=== PATIENT | female | born 1965 | race Caucasian/White ===

== ENCOUNTER 2023-04-12 08:34 | Outpatient (RCR) | payer BC, SELFPAY | END 2023-11-11 09:00 | disposition home or self-care (01) | LOC: PT 08:34 | PROVIDERS: PCP Internal Medicine; Visit Provider Internal Medicine | DX: M51.36 Other intervertebral disc degeneration, lumbar region (principal) | CPT/HCPCS: 20561; 97140 ==

== ENCOUNTER 2023-11-12 09:46 | Outpatient (RCR) | payer BC, SELFPAY | END 2024-11-11 15:01 | disposition home or self-care (01) | LOC: PT 09:46 | PROVIDERS: PCP Internal Medicine; Visit Provider Internal Medicine | DX: M51.360 Other intervertebral disc degeneration, lumbar region with discogenic back pain only (principal); M25.552 Pain in left hip | CPT/HCPCS: 20561 ==

== ENCOUNTER 2024-04-24 19:30 | Emergency (ER) | payer BC, SELFPAY ==
--- OUTSIDE RECORDS SUMMARY | 2024-04-24 19:39 | XMS_ITS | CCD ---
Author Organization [facility] Inform ion Partnership [facility] Care Team Providers Care Editor House Organ Name Role Phone Shanelle Hitchcock Unavailable Addy Meyers Unavailable Tony Mittal Unavailable DR ELSA BOOKER Admitting Unavailable KATELIN, DR HUNTER Attending Unavailable KATELIN, DR HUNTER Admitting Unavailable KATELIN, DR HUNTER Attending Unavailable Elsa Booker DO Primary Care Provider TERI Read Attending Provider [phone] HEYDI IBRAHIM Attending Unavailable ELSA BOOKER Attending Unavailable ELSA BOOKER Referring Unavailable GIOVANNI MENDOZA Referring Unava ilable Shanelle Read Admitting Unavailable Shanelle Read Attending Unavailable Self, Referral Attending Unavailable Elsa Booker Primary Care Unavailable Self, Referral Admitting Unavailable Allergies Allergy Classification Reported Allergen(s) Allergy Type Date of Onset Reaction(s) Facility (5 sources) Ibuprofen Drug Allergy 4 Unknown, Unknown Reaction [facility] (8 sources) Penicillin V Drug Allergy 4 Unknown, Unknown Reaction [facility] (4 sources) Penicillins Propensity to adverse reactions 8 [facility] (1 source) Ibuprofen Drug Allergy 4 [facility] (1 source) Penicillin Drug Allergy 4 [facility] (1 source) Penicillins Drug allergy (disorder) 4 [facility] Medications Current Medications Medication Drug Class(es) Dates Sig (Normalized) Sig (Original) amitriptyline hydrochloride 25 mg oral tablet (3 sources) Tricyclic Antidepressant Start: 09-07-2020 take 25 mg by mouth at bedtime Amitriptyline Active 25 MG PO Bedtime June 23, 2021 12:00am ascorbic acid 1000 mg oral tablet (2 sources) Vitamin C Start: 11-20-2017 take 1 tablet by mouth once daily Ascorbic Acid (Vitamin C) (Vitamin C) 1,000 mg Tablet Active 1000 MG PO Daily November 20, 2017 1:00am cholecalciferol 0.125 mg oral tablet (2 sources) Vitamin D Start: 11-20-2017 take 1 tablet by mouth once daily Cholecalciferol (Vitamin D3) (Vitamin D3) 5,000 unit Tablet Active 5000 UNIT PO Daily November 20, 2017 1:00am cyclobenzaprine hydrochloride 10 mg oral tablet (5 sources) Muscle Relaxant Start: 06-23-2021 take 10 mg by mouth three times daily Cyclobenzaprine Active 10 MG PO Three times daily June 23, 2021 12:00am take 1 tablet by shira th every eight hours as needed Cyclobenzaprine HCl 10 MG 1 tablet Orall y every 8 hrs prn Active dicyclomine hydrochloride 20 mg oral tablet (5 sources) Anticholinergic Start: 06-23-2021 take 20 mg by mouth twice daily Dicyclomine Active 20 MG PO Twice daily June 23, 2021 12:00am Start: 09-07-2020 take 1 tablet by shira th four times daily as needed Dicyclomine HCl 20 MG 1 tablet Orally qid prn for 30 day(s) Aug, Active estrogens, conjugated (care home) 0.625 mg/ml vaginal cream (3 sources) Estrogen Premarin 0.625 MG/GM as directed Vaginal Active ferrous sulfate 325 mg oral tablet (5 sources) Start: 8 take 1 tablet by mouth once daily Ferrous Sulfate (Iron) 325 mg (65 mg iron) Tablet Active 325 MG PO Daily November 20, 2017 1:00am fluticasone (3 sources) Corticosteroid Flonase prn Acti ve gabapentin 300 mg oral capsule (7 sources) Anti-epileptic Agent Start: 8 End: 8 take 300 mg by mouth twice daily Gabapentin Active 300 MG PO Twice daily June 06, 2018 12:00am Gabapentin 300 M G 1 capsule Orally 2-3 times a day Active lidocaine 0.05 mg/mg medicated patch (2 sources) Antiarrhythmic, Amide Local Anesthetic Start: 10-02-2022 Lidoderm 5 % 1-2 patches remove after 12 hours Externally Once a day for 10 days Sep, Active Multi Vitamin/Minerals - (3 sources) Multi Vitamin/Minerals - as directed Orally Active Multivitamin preparation (2 sources) Start: 11-20-2017 take 1 tablet by mouth once daily Multivitamin Active 1 TAB PO Daily November 20, 2017 1:00am POLYETHYLENE GLYCOL 3350 (3 sources) Osmotic Laxative MiraLax Active predniSONE 10 mg oral tablet (3 sources) Start: 05-23-2022 prednisone 10 mg 5 tablets for 2 days, 4 tablets x2 days, then 3 x2 days, 2 x2 days, 1 x2 days Orally as directed for 10 days May, Active 0.25 mg, 0.5 mg dose 1.5 ml semaglutide 1.34 mg/ml pen injector (1 source) Start: 05-27-2021 Ozempic (0.25 or 0.5 MG/DOSE) 2 MG/1.5ML 0.25 mg for one month and then increase to 0.5 mg dose in the form of Wegovy Subcutaneous weekly for 30 days May, Active Tylenol Arthritis Pain (3 sources) Tylenol Arthriti s Pain Active valACYclovir 1000 mg oral tablet (3 sources) Herpesvirus Nucleoside Analog DNA Polymerase Inhibitor, Herpes Simplex Virus Nucleoside Analog DNA Polymerase Inhibitor, Herpes Zoster Virus Nucleoside Analog DNA Polymerase Inhibitor take 2 tablets by mouth every twelve hours as needed Valtrex 1 GM 2 tablets Orally q 12 hours/prn Active vitamin b12 1 mg oral tablet (5 sources) Vitamin B12 Start: 11-20-2017 take 1 tablet by mouth once daily Cyanocobalamin (Vitamin B-12) (Vitamin B-12) 1,000 mcg Tablet Active 1000 MCG PO Daily November 20, 2017 1:00am Vitamin B 12 100 0 mcg 1 tab qd Active Vitamin C 1000 MG (3 sources) take 1 tablet by shira th once daily Vitamin C 1000 MG 1 tablet Orally Once a day Active Vitamin D (3 sources) Vitamin D Active Zinc (1 source) take 1 tablet by shira th once daily Zinc 50 MG 1 tablet Orally Once a day Active zinc gluconate 50 mg oral tablet (2 sources) take 1 tablet by shira th every twenty-four hours Zinc 50 MG 1 tablet Orally Once a day Active Completed/Discontinued Medications Medication Drug Class(es) Dates Sig (Normalized) Sig (Original) acetaminophen 325 mg / oxyCODONE hydrochloride 5 mg oral tablet (2 sources) Opioid Agonist Start: 11-20-2017 End: 06-06-2018 take 1-2 tablets by mouth every six hours as needed for pain Oxycodone-Acetamino phen (Percocet) 5-325 mg tablet Discontinued 1 - 2 TAB PO Q6H November 20, 2017 1:00am June 06, 2018 4:00am May take 1-2 tabs q 6 hours prn pain Toradol 30 mg/ml (5 sources) Start: 10-02-2022 Toradol 30 mg/ml Sep, 30 mg Start: 05-23-2022 Toradol 30 mg/ ml May, 60 mg triamcinolone acetonide 40 mg/ml injectable suspension (5 sources) Corticosteroid Start: 10-02-2022 Kenalog-40 Sep, 40 mg Start: 05-23-2022 Kenalog-40 May, 60 mg Problems Active Problems Problem Classification Problem Date Documented Da te Episodic/Chronic Abdominal hernia (1 source) Hernia of anterior abdominal wall; Translations: [Ventral hernia without obstruction or gangrene] 07-27-2021 Episodic Abdominal pain (4 sources) Functional abdominal pain syndrome; Translations: [Unspecified abdominal pain] Episodic Diabetes mellitus without complication (3 sources) Impaired fasting glycemia; Translations: [Impaired fasting glucose] Episodic Disorders of lipid metabolism (3 sources) Mixed hyperlipidemia; Translations: [Mixed hyperlipidemia] Chronic Diverticulosis and diverticulitis (6 sources) Diverticulitis; Translations: [Diverticulitis of intestine, part unspecified, without perforation or abscess without bleeding] Chronic Genitourinary symptoms and ill-defined conditions (3 sources) Dysuria; Translations: [Dysuria] Onset: 02-26-2024 02-26-2024 Episodic Mood disorders (3 sources) Major depression, single episode; Translations: [Major depressive disorder, single episode, unspecified] Chronic Osteoarthritis (3 sources) Osteoarthritis of knee; Translations: [Osteoarthritis of knee, unspecified] Chronic Other gastrointestinal disorders (6 sources) History of bariatric surgical procedure; Translations: [Bariatric surgery status] Episodic Other nutritional; endocrine; and metabolic disorders (6 sources) Body mass index 40+ - severely obese; Translations: [Body mass index (BMI) 50.0-59.9, adult] Chronic Other nutritional; endocrine; and metabolic disorders (3 sources) Metabolic syndrome X; Translations: [Metabolic syndrome] Chronic Other nutritional; endocrine; and metabolic disorders (3 sources) Severe obesity; Translations: [Morbid (severe) obesity due to excess calories] Chronic Spondylosis; intervertebral disc disorders; other back problems (4 sources) Other intervertebral disc degeneration, lumbar region; Translations: [OTH IV DISC DEGEN LUMBAR REGION] Onset: 05-30-2022 Chronic Spondylosis; intervertebral disc disorders; other back problems (4 sources) Lumbago with sciatica, left side; Translations: [Sciatica] Onset: 05-23-2022 Resolved: 05-23-2022 Episodic Unclassified (1 source) Encounter for screening mammogram for malignant neoplasm of breast; Translations: [Encounter for screening mammogram for malignant neoplasm of breast] Onset: 05-22-2023 Past or Other Problems Problem Classification Problem Date Documented Da te Episodic/Chronic Other non-traumatic joint disorders (1 source) Pain in left hip; Translations: [PAIN IN LEFT HIP] Onset: 06-13-2022 Episodic Results Test Name Value Interpretation Reference Range Facility Urine Cultureon 02-26-2024 Bacteria identified Cx Nom (U) <9,000 colonies/ml mixed bacterial skin contaminants 2 Days PERFORMED BY: [place] [address] PATHOLOGIST SURVEILLANCE SYSTEMS ENGINEER CORIE BIRCH M.D. Normal [facility] Comment on above: Performed By: #### CUU #### [address] XR CHEST 2 VIEWSon 3 XR CHEST 2 VIEWS EXAMINATION: XR CHES T 2 VIEWS HISTORY: Iriditis TECHNIQUE: Frontal and lateral views of the chest. COMPARISON: None available FINDINGS: Cardiomediastinal silhouette is within normal limits. No pneumothorax, pleural effusion, or consolidation. No acute osseous abnormality. IMPRESSION: No radiographic evidence of acute intrathoracic process. ELECTRONICALLY SIGNED BY: Elsa Melara, DO Normal Not Available MM screening mammo BI w/CADo n 05-22-2023 MM screening mammo BI w/CAD [facility] [place] [address] [place] [address] Mammography Report Signed Patient: Rudolph Teague MR#: [id number] 0 : 1965 Acct:[id number] Age/Sex: 57 / F ADM Date: 05/22/23 Loc: [place] Room: Type: [facility] Attending Dr: Referral Self Copies to: Elsa Booker DO SELF,REFERRAL Ordering Provider: SELF,REFERRAL Date of Service: 05/22/23 MM/MM screening mammo BI w/CAD: SCREENING CLINICAL DATA: Screening for malignancy. BILATERAL SCREENING MAMMOGRAMS - FULL FIELD DIGITAL WITH TOMOSYNTHESIS AND CAD Tomosynthesis craniocaudal and mediolateral oblique views of both breasts were obtained using low- dose digital technique. Comparison is made to prior studies from November 10, 2017 through May 13, 2022. This examination was reviewed with the aid of CAD. The breast parenchyma has been largely replaced by fat. A few benign calcifications are seen. There are no developing masses, typically malignant calcifications or architectural distortion. There has been no significant interval change. MM/MM screening mammo BI w/CAD IMPRESSION: NO MAMMOGRAPHIC EVIDENCE OF MALIGNANCY. ROUTINE FOLLOW-UP IS RECOMMENDED IN ONE YEAR. RESULT CODE: 2 Benign Findings(s) DENSITY CODE: 1 (<25% glandular) FOLLOW UP: 1YR The false-negative rate of mammography is approximately 10-percent. Management of a palpable abnormality must be based on clinical grounds. Patient was entered into a reminder system with a target due date for the next mammogram. Impression dictated by: Shira Reed M.D.05/22/2023 4:34 PM Dictation Location: [facility] Transcribed By: [facility] 05/22/23 1634 Dictated By: Shira Reed MD 05/22/23 163 Signed By: 05/22/23 1634 Normal [facility] CT Abdomen/Pelvis w/ Contras ton 08-31-2022 CT Abdomen/Pelvis w/ Contrast HISTORY: Left lower quadrant pain intermittently for 2 weeks. History of diverticulosis. COMPARISON: CT abdomen and pelvis 07/01/2020 TECHNIQUE: Multiple axial images were obtained of the abdomen and pelvis with contrast. Multiplanar reformats were acquired at the CT console. Oral contrast was also given. Delayed images were obtained. All CT scans at this facility use dose modulation, iterative reconstruction, and/or weight based dosing when appropriate to reduce radiation dose to as low as reasonably achievable. FINDINGS: Lung bases are clear. The liver is enlarged measuring approximately 24 cm in craniocaudal length. Postsurgical changes of cholecystectomy. Postsurgical changes of the stomach. The spleen, pancreas, and adrenal glands are within normal limits. All The kidneys enhance uniformly. Mild chronic bilateral perinephric stranding. No urinary tract calculi or hydronephrosis.No evidence of renal mass. Urinary bladder is well-distended. The uterus is present. No retroperitoneal or mesenteric lymphadenopathy. Abdominal aorta is non-aneurysmal. No small bowel obstruction. Scattered colonic diverticula are identified. No overt colonic mass or pericolonic inflammation. The appendix is within normal limits. No free air or free fluid. No acute osseous abnormality. Degenerative changes of the spine. IMPRESSION: No acute abdominopelvic process. Chronic diverticulosis without diverticulitis. Hepatomegaly. Report reported and signed by Elsa Melara on 08/31/2022 1342 Normal [facility] XR Spine Lumbar 4+ Views*on 03-03-2022 XR Spine Lumbar 4+ Views* HISTORY: Back pain COMPARISON: CT abdomen and pelvis 07/01/2020 TECHNIQUE: AP, lateral, bilateral oblique views of the lumbar spine and AP and lateral coned-down views of the lumbosacral junction FINDINGS: Lumbar vertebral body heights are maintained. Moderate intervertebral disc height loss at L5-S1. Mild examine plate changes with spurring at L5-S1. Facet arthropathy of the lower lumbar spine. No acute fracture or malalignment. Sacroiliac joints appear normal. IMPRESSION: No acute osseous abnormality. Degenerative changes of the lower lumbar spine. Report reported and signed by Elsa Melara on 03/03/2022 1143 Normal [facility] Specialist CNTHERAPYon 08-06-2021 CNTHERAPY OT/PT/Speech Visit ( PTELYR) RUDOLPH TEAGUE ([id number]) 1965 F Date Time Provider Department 08/06/21 11:00 AM RENAN GATES Date Time Provider Department Center 08/06/2021 11:00 AM [id number] Reason for Visit: PT Eval [747] Patient Education [91] Primary Visit Diagnosis:Generalized abdominal pain [R10.84] Other Visit Diagnosis:Post-op pain [G89.18] Allergies As of Date: 08/06/2021 Noted Allergy Reaction PENICILLINS 10/13/2008 4 - Hives Date Reviewed: 07/28/2021 Reviewed by: Ana Cristina Cam Ma - Fully Assessed Prescriptions as of 08/08/2021 - amitriptyline (ELAVIL) 25 mg tablet - dicyclomine (BENTYL) 20 mg tablet - gabapentin (NEURONTIN) 300 mg capsule - traMADol (ULTRAM) 50 mg tablet - cyclobenzaprine (FLEXERIL) 10 mg tablet Progress Notes: Renan Gates PT 08/08/2021 8:32 AM Addendum Episode Visit Count: 1 Therapist That Will Oversee The Plan Of Care: Renan Gates Start of Care Date: 08/06/21 Onset Date: 07/27/14 Plan of Care Certification Date: 08/06/21 Patient Identified by Name and Date of : Yes [facility] PHYSICAL THERAPY EVALUATION PLAN OF CARE: Assessment: Rudolph Teague presents with the chief complaint of chronic abdominal pain. She has pain and TTP along suprapubic ncision and along abdominal incision along linea alba. She presents with impairments of core weakness, compensated transfers, pain and lack of home exercise program. She may benefit from skilled therapy services to improve her core strength and to increase her scar mobility, all with the goal of decreasing her level of pain. Based on the clinical decision making and the AMA CPT codes this qualifies as a moderate complexity evaluation, 34065. Prognosis: Fair Fair due to: chronic nature of impairments Goals for Episode of Care: created on 08/06/21 through 10/01/21 Patient will demonstrate independence in home exercise program. Patient will tolerate 45min/day of activity 4 days/week with good tolerance to allow the patient to return to normal performance of ADLs AND IADLs. Pt will have decreased TTP along incisions in 8 weeks. Pt will demonstrate proper activation of TA in 4 weeks in order to improve core stability. Pt will demonstrate proper supine<>sit technique in order to decrease strain on abdominals and to protect LBP. 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 The above goals and plan of care were discussed and agreed upon by patient/family. SUBJECTIVE: Rudolph Teague is a 55 year old female seen today for chronic right sided abdominal pain. History of gastric bypass in 2004, hernia repair in 2006 and hernia with mesh repair in 2013. Continues to have abdominal discomfort, this is mid-line, transverse and to the right side. 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 Falls Interview: No positive findings with falls interview Pain: Pain Pain Level: (not quantified) Post Treatment Pain Post Treatment Pain Level: No Change PROMIS Scales T-scores: mean of general population = 50. 5 points is clinically meaningfully difference Percentiles provide an indication of how the patient's score ranks in relation to the general population. Higher percentile rankings indicate better function/quality of life. 50th percentile is the average of the general population and indicates half of respondents had a worse score. T-scores: mean of general population = 50. 5 points is clinically meaningfully difference Percentiles provide an indication of how the patient's score ranks in relation to the general population. Higher percentile rankings indicate better function/quality of life. 50th percentile is the average of the general population and indicates half of respondents had a worse score. OBJECTIVE MEASURES WITH LEVEL OF FUNCTION: Pelvic Floor Muscle Assessment Appearance: Scar Scar Appearance: along linea alba and suprapubic region Diastasis Rectus Abdominis: Negative Pelvic Floor Manual Assessment Scar Mobility: decreased to all scars with vertical incision least mobile External Pelvic Regio (more content not included)... Normal [facility] CNOVon 07-28-2021 CNOV Office Visit (JOANNA ) RUDOLPH TEAGUE ([id number]) 1965 F Date Time Provider Department 07/28/21 9:30 AM VIVIAN VARGAS During your visit today, we recorded the following information about you: Temperature Pulse Blood pressure Weight 97.6 degrees 63/minute 152/65 109.8 kg Height 1.676 m Ana Cristina Cam Ma 07/28/2021 10:14 AM Signed What is the reason for your visit today? consult Who is your referring physician? Dr. vargas Are you having poor oral intake? NO Have you had unintentional weight loss of 15 lbs/7 Kg in the last 3-6 months? NO Bowels: regular Wound: clean AND dry Temperature: No Drains: No Shaniqua Montez MD 07/28/2021 1:22 PM Signed [facility] for [facility]dominal [facility] - HISTORY AND PHYSICAL Chief Complaint: Abdominal pain possible hernia HPI: Rudolph Teague is a 55 year old female with PMhx Craig-en-Y gastric bypass 2004, hernia repair and upper body lift 2006, hernia repair with mesh 2013, lap cholecystectomy 2000 who presents with right flank and pelvic pain that she believes is a hernia. Symptoms include pain when getting out of bed. She has no trouble eating; no nausea/vomiting; passing flatus. She weighted 409lb before bypass surgery and lost 209lb with bypass, then gained majority back. Relevant previous operations include: see above No history of Psychiatric Disorders or Opioid Use Unknown Unknown Unknown No Significant Comorbidities History of open abdomen No past medical history on file. No past surgical history on file. Social History Tobacco Use - Smoking status: Never Smoker - Smokeless tobacco: Never Used Substance Use Topics - Alcohol use: Not on file - Drug use: Not on file Additional social history not relevant to the patient's HPI No family history on file. Additional family history not relevant to the patient's HPI ALLERGIES Allergen Reactions - Penicillins Hives Current Outpatient Medications Medication Sig Dispense Refill - amitriptyline (ELAVIL) 25 mg tablet - dicyclomine (BENTYL) 20 mg tablet - gabapentin (NEURONTIN) 300 mg capsule - traMADol (ULTRAM) 50 mg tablet - cyclobenzaprine (FLEXERIL) 10 mg tablet No current facility-administered medications for this visit. REVIEW OF SYSTEMS The remainder of the 12 review of systems is negative other than what was mentioned in the HPI and above. BP 152/65 Pulse 63 Temp 36.4 ?C (97.6 ?F) (Temporal) Ht 167.6 cm (5' 6 ) Wt 109.8 kg (242 lb) BMI 39.06 kg/m? Physical findings of this patient are as follows (COMPLETE 10 INCLUDING HEART AND LUNG EXAM OR CHOOSE NORMAL EXAM IF APPROPRIATE): Physical Exam Physical Exam Constitutional: The patient is well-developed, well-nourished, and in no distress. Head: Normocephalic and atraumatic. Eyes: Pupils are equal, round, and reactive to light. EOM are normal. Neck: Normal range of motion. Neck supple. Cardiovascular: Regular rhythm and normal heart sounds. Pulmonary/Chest: Effort normal and breath sounds normal. Abdominal: Soft. Bowel sounds are normal. Musculoskeletal: Normal range of motion. Neurological: He is alert. GCS score is 15. Skin: Skin is warm and dry. Psychiatric: Affect and judgment normal. Relevant Hernia Findings No abdominal hernia appreciated LABS: No results found for: HBA1C IMAGING - Reviewed with staff CT abd/pel 07/27 reviewed; no recurrent hernia Assessment: Rudolph Teague is a 55 year old female with PMhx Craig-en-Y gastric bypass 2004, hernia repair and upper body lift 2006, hernia repair with mesh 2013, lap cholecystectomy 2000 who presents with right flank and pelvic pain that she believes is a hernia. CT abd/pel yesterday demonstrates no recurrent hernia, consistent with physical exam. Explained to patient that pain is likely due to scar tissue formed as a result of prior surgeries; encouraged her to seek physical therapy for exercises to reduce this. Patient expressed understandable and is agreeable to plan as she currently sees PT in [facility] for back pain. Seen / discussed with Dr. Vargas. Plan: Physical therapy consult placed to exercise abdomen Shaniqua Montez MD General Surgery PGY-1 July 28, 2021 [facility] Vivian Vargas MD 07/28/2021 1:22 PM Signed Consultation requested by Dr. Booker for an opinion regarding abdominal pain/hernia. My final recommendations will be communicated back to the requesting physician by way of shared Medical record or letter to requesting physician via US mail. I have seen and evaluated the patient and discussed the case with the resident physician. I agree with the assessment and plan as documented in the resident?s note. 55 year old female with history of multiple prior hernia repairs and GBP and has some right sided abdominal pain and bulging. However on exam and review of her CT I don't fe (more content not included)... Normal [facility] CT ABD/PEL WO IVCONon 2020 CT ABD/PEL WO IVCON * * *Final Report* * * DATE OF EXAM: Jul 27 2021 12:49PM [facility] 0531 - CT ABD/PEL WO IVCON / PROCEDURE REASON: Ventral hernia without obstruction or gangrene * * * * Physician Interpretation * * * * EXAMINATION: CT ABDOMEN AND PELVIS WITHOUT IV CONTRAST CLINICAL HISTORY: Ventral hernia without obstruction or gangrene TECHNIQUE: Non-IV contrast imaging of the abdomen and pelvis was performed using standard technique, scanning from just above the dome of the diaphragm to the symphysis pubis. Unenhanced imaging is limited for the evaluation of some intra-abdominal and pelvic pathology. MQ: [id number]_3 Contrast: IV: None : ml of CT Radiation dose: Integrated Dose-length product (DLP) for this visit = 1185 mGy*cm. CT Dose Reduction Employed: mAs-kVp adjusted based on patient size-age COMPARISON: None. RESULT: Abdomen / Pelvis: Liver: Unremarkable. Biliary: S/p cholecystectomy. Spleen: No splenomegaly. Pancreas: Unremarkable. Adrenals: No mass. Kidneys: No calculus, hydronephrosis or finding to suggest a cyst or mass in the unenhanced kidney. GI Tract: Small hiatal hernia. Status post Craig-en-Y gastric bypass. No bowel dilation. Diverticulosis. Lymph Nodes: No lymphadenopathy. Mesentery/peritoneum: No ascites. Retroperitoneum: No mass. Vasculature: No abdominal aortic or iliac artery aneurysm. Pelvis: No mass or ascites. Bones/Soft Tissues: Prior ventral abdominal wall hernia repair. No recurrent hernia. Scattered surgical clips within the subcutaneous tissues. No destructive osseous lesions. Lower thorax: Unremarkable. Fruit And Vegetable Classer (topogram) images: No additional findings. IMPRESSION: Prior ventral abdominal wall hernia repair. No recurrent hernia. Inside Wirer: PSCMarimar Transcribe Date/Time: Jul 27 2021 12:53P Dictated by : CARLOS ENRIQUE CARRASCO MD This examination was interpreted and the report reviewed and electronically signed by: CARLOS ENRIQUE CARRASCO MD on Jul 27 2021 1:05PM EST [id number] Normal [facility] CT CARDIAC SCORINGon 07-14 CT CARDIAC SCORING Addendum Begins Patient Name: RUDOLPH TAEGUE ADDENDUM: Technical: Following is to serve as an over-read for an unenhanced cardiac CT, to evaluate the extra vascular structures. Contiguous unenhanced CT sections are performed from the level of the soha to the upper abdomen. Findings: The visualized portions of both lungs are clear. There is no pericardial or pleural effusion. There is no sign of pathologic lymph node enlargement. Images through the upper abdomen demonstrate a small hiatal hernia and postsurgical changes at the level of the stomach. The visualized osseous and soft tissue structures of the chest wall are intact. Impression: Postoperative changes in the left upper quadrant with small hiatal hernia. The extra vascular structures are otherwise unremarkable. Electronically signed by: ALLYN TY MD Addendum Ends Patient Name: RUDOLPH TEAGUE STUDY: CT CARDIAC SCORING; 08/07/2020 11:00 am INDICATION: PREP GIVEN. COMPARISON: None. ACCESSION NUMBER(S): [id number] ORDERING CLINICIAN: ELSA BOOKER TECHNIQUE: Using prospective ECG gating, CT scan of the coronary arteries was performed without intravenous contrast. Coronary calcium scoring was performed according to the method of Agatston. CT Dose-Length Product (DLP): 62.5 mGy*cm CT Dose Reduction Employed: Yes, prospective gating, iterative reconstruction. FINDINGS: The score and distribution of calcium in the coronary arteries is as follows: LM 0 LAD 0 LCx 0 RCA 42 Total 42 The visualized ascending thoracic aorta measures 3.2 cm in diameter. The heart is normal in size. No pericardial effusion is present. The main pulmonary artery, right and left pulmonary artery are normal in size. IMPRESSION: 1. Coronary artery calcium score of 42*. 2. TORRES 93rd percentile for age, gender, and race in asymptomatic patients. *Coronary Artery Agatston score Score risk Very low 1-99 Mildly increased 100-299 Moderately increased >300 Moderate to severely increased >800 Shahnaz et al. JCCT 2016 (http://dx.doi.org/10.1016/ j.jcct.2016.11.003) TORRES Percentile In general, greater than 75th percentile for age, gender, and race is considered to be a higher relative risk and higher lifetime risk condition. Greater than 75th percentile=moderate to severely increased relative risk irrespective of the score. Advise using TORRES 10 year CHD risk calculator below for better discrimination of risk. TORRES 10-Year CHD Risk with Coronary Artery Calcification can be calcuate using link below https://www.torres-nhlbi.org/ MESACHDRisk/MesaRiskScore/R iskScore.aspx Constanza et al. JACC 2014 (http://dx.doi.org/10.1016/ j.j acc.2015.08.035) Reading Riveting Machine Operator Tape Control: Dr. Vivian Allen, Date: 08/09/2020 10:29 am Electronically signed by: ALLYN TY MD [facility] SURGICAL PATHOLOGYon 018 SURGICAL PATHOLOGY Specimen #: [id number] Physician: ALFREDA PEÑALOZA M.D. FIN AL DIAGNOSIS1. Endometrium, designated myomectomy (Q18-372P) - Non-atypical endometrialhyperplasia with secretory change involving fragments of endometrial polyp.- Limited sample of benign non-polyp endometrium with stromal breakdown. 2. Endometrium, curettings (S41-992J) - Superficial sample of benignendometrium with extensive stromal breakdown. - Limited sample of benign endocervix.CVB/john 11/26/2017 COMMENTThank you for submitting this case. If you have questions, please call [facility] [phone].Dhruv Pepe M.D.(Electronic Signature) SPEC IMEN SUBMITTEDA: 10 SLIDES ([id number]) CLINICAL DATANone provided.Patient ID #: Date of Report: 11/26/2017Date of Procedure: 11/23/2017Date of Receipt: 11/23/2017Submitted by: ALFREDA PEÑALOZA M.D.Location: Diagnostic interpretation performed at [facility], [address] [place] [address]. Normal [facility] Comment on above: Performed By: #### S ####See report for performing lab information. Vital Signs Date Time Vital Sign Value Performing Clinician Facility 02-26-2024 14:32-0400 Body temperature 98.2 [degF] [facility] 02-26-2024 14:32-0400 Body weight 113.39 kg [facility] 02-26-2024 14:32-0400 Diastolic blood pressure 84 mm[Hg] [facility] 02-26-2024 14:32-0400 Heart rate 78 /min [facility] 02-26-2024 14:32-0400 Respiratory rate 20 /min [facility] 02-26-2024 14:32-0400 Systolic blood pressure 158 mm[Hg] [facility] 10-02-2022 11:00-0500 Body height 167.64 cm Addy Meyers Other [facility] Other 10-02-2022 11:00-0500 Body mass index (BMI) [Ratio] 48.9 kg/m2 Addy Meyers Other [facility] Other 10-02-2022 11:00-0500 Body temperature 98.7 [degF] Addy Meyers Other [facility] Other 10-02-2022 11:00-0500 Body weight 137.44 kg Addy Meyers Other [facility] Other 10-02-2022 11:00-0500 Respiratory rate 20 /min Addy Meyers Other [facility] Other 10-02-2022 11:00-0500 SaO2% (BldA) [Mass fraction] 98 % Addy Meyers Other [facility] Other 05-23-2022 18:45-0400 Body height 167.64 cm Shanelle Hitchcock Other [facility] Other 05-23-2022 18:45-0400 Body mass index (BMI) [Ratio] 56.49 kg/m2 Mitchellkarri Hitchcock Other [facility] Other 05-23-2022 18:45-0400 Body temperature 98 [degF] Shanelle Coretat Other [facility] Other 05-23-2022 18:45-0400 Body weight 158.76 kg Shanelle Hitchcock Other [facility] Other 05-23-2022 18:45-0400 Respiratory rate 18 /min Shanelle Coretta Other [facility] Other 05-23-2022 18:45-0400 SaO2% (BldA) [Mass fraction] 98 % Shanelle Hitchcock Other [facility] Other Encounters Encounter Date Encounter Type Care Provider Facility Start: 02-27-2024 End: 02-27-2024 ambulatory HEYDI IBRAHIM Not Available Start: 02-26-2024 End: 02-26-2024 ambulatory Shanelle Read Facility:[facility] Start: 02-26-2024 End: 02-26-2024 Departed Referred PA-C Shanelle Read Work Phone: [facility] [place] Work Phone: Start: 02-26-2024 End: 02-26-2024 ambulatory [facility] Work Phone: Start: 02-26-2024 End: 02-26-2024 Patient encounter procedure [facility] [place] Work Phone: Start: 10-30-2023 End: 10-31-2023 ambulatory GIOVANNI MENDOZA Not Available Start: 10-30-2023 End: 10-31-2023 ambulatory ELSA BOOKER Not Available Start: 05-22-2023 End: 05-22-2023 ambulatory Referral Self Facility:[facility] Start: 11-12-[address] ELSA BOOKER Facil ity:[facility] Start: 10-10-2022 End: 10-10-2022 ambulatory Tony Mittal Other [facility] Other Start: 10-10-2022 Telephone encounter Tony Mittal [facility] Start: 10-02-2022 End: 10-02-2022 ambulatory Addy Meyers Other [facility] Other Start: 10-02-2022 Office outpatient visit 15 minutes Addy Meyers [facility] Start: 05-30-2022 End: 11-11-[address] ELSA BOOKER Facility:[facility] Start: 05-23-2022 End: 05-23-2022 ambulatory Shanelle Hitchcock Other [facility] Other Start: 05-23-2022 Office outpatient visit 15 minutes Shanelle Coretta [facility] [address] Start: 07-27-2021 End: 07-27-2021 [facility] Comment on above: Ventral hernia witho ut obstruction or gangrene [K43.9] Procedures Date Procedure Procedure Detail Performing Clinician Start: 07-27-2021 Ct abdomen & pelvis w/o contrast material Ariella Feliberto 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[employer] Work Phone: Plan of Treatment Date Care Activity Detail Author Start: 02-26-2024 Bacteria identified in Urine by Culture [facility] Start: 07-13-2023 Covid-19 Vaccine ( season) Covid-19 Vaccine () [facility] Start: 07-13-2023 Influenza vaccination Influenza Vaccine (#1) [facility] Start: 11-12-2022 Depression Assessment Depression Assessment [facility] Start: 11-02-2022 Urine microalbumin profile DTaP,Tdap,Td Vaccine (2 - Td or Tdap) [facility] Start: 2016 Shingrix Vaccine (1 of 2) Shingrix Vaccine (1 of 2) [facility] Start: 2011 Cologuard (FIT-DNA) Cologuard (FIT-DNA) [facility] Start: 2011 Colonoscopy Colonoscopy [facility] Start: 2011 Colorectal Cancer Screening Colorectal Cancer Screening [facility] Start: [address] Colonography [facility] Start: 2011 Diabetes Screening Diabetes Screening [facility] Start: 2011 Fecal Occult Blood Fecal Occult Blood [facility] Start: 2011 Lipid 1996 panel - Serum or Plasma Lipid Screening [facility] Start: 2011 Sigmoidoscopy Sigmoidoscopy [facility] Start: 2006 Mammography Mammogram Screening [facility] Start: 1996 HPV Testing HPV Testing [facility] Start: 1987 Pap Testing Pap Testing [facility] Start: 1984 Hepatitis C Screening Hepatitis C Screening [facility] Start: 1984 HIV Screening HIV Screening [facility] Start: 1966 Hepatitis B Vaccine (1 of 3 - 3-dose series) Hepatitis B Vaccine (1 of 3 - 3-dose series) [facility] Immunizations Immunization Date Immunization Notes Care Provider Anthony alfred 09-10-2014 influenza virus vacc ine, unspecified formulation Ct Cc [facility] Payers Date Payer Category Payer Self-pay [id number] 2017 Unknown [employer] BLUE CARD PPO OOS [id number] 2017-Present [phone] [id number] [place] [address] PPO [id number] 1966 Unknown [id number] 1966 Unknown [id number] [id number] 1966 Unknown [id number]. [id number] 1966 Unknown [id number] [id number] 1966 Unknown [id number] [id number] 1959 [facility] [id number] Private Health Insurance [facility] e [id number] Private Health Insurance [facility] e [id number] Unknown [id number] [id number] Unknown [id number] [id number] Social History Date Type Detail Facility Start: 07-27-2021 End: 07-28-2021 Sex Assigned At [employer] Other Tobacco smoking status NHIS Tobacco smoking consumption unknown [facility] Start: 07-27-2021 End: 07-28-2021 History of Social function [facility] National Score (1-100), lower number is lower risk Not on file [facility] Start: 1965 Sex Assigned At Not on file [facility] Start: 06-23-2021 Tobacco smoking status NHIS Never smoked tobacco (finding) [facility] Start: 1965 Sex Assigned At Female F [facility] Clinical Notes 07-27-2021 to 10-10-2022 Note Date & Type Note Facility 10-10-2022 Evaluation note Encounter Date Diagnosis Assessment Notes Sep, Right sided abdominal pain (ICD-10 - R10.9) [facility] Other 11-21-2022 Evaluation note* Encounter Date Diagnosis Assessment Notes Treatment Notes Treatment Clinical Notes Sep, Acute left-sided low back pain with left-sided sciatica (ICD-10 - M54.42) Take prednisone starting tomorrow. Complete stretching excercises 3 times a day. Follow up with pcp if symptoms have not imrpoved in 5-7 days. No sign/symptoms of cauda equina syndrome, conus medullaris syndrome, epidural abscess, or osteomyelitis. Strain of lower back is most likely diagnosis. Due to no recent trauma, I feel an xray is not necessary at this time. Sign and symptoms consistent with acute sciatica. Will order toradol and kenalog injection in the clinic. Will also prescribe course of prednisone and lidoderm patches. Pt educated about red flag symptoms to watch out for and if she develops red flag symptoms, then she should go to the ER. She understands and agrees with the plan. [facility] Other 07-12-2022 Evaluation note* Encounter Date Diagnosis Assessment Notes Treatment Notes Treatment Clinical Notes May, Acute left-sided low back pain with left-sided sciatica (ICD-10 - M54.42) Pt received IM kenalog and Toradol injections today in officePt to take meds as prescribed. No nsaids while on steroid. Otc tylenol is ok to take PRN for additional pain relief. Ice first 48 hrs as directed, then moist heat thereafter. RICE therapy. No heavy lifting or strenuous exercise. Stretching exercises as discussed. Pt to f/u as needed for any persistent or worsening symptoms. Immediate eval in ER for loss of bowel/bladder function, severe pain, loss of sensation in lower legs, or inability to walk. Pt understood and agreed to treatment plan. [facility] Other 09-25-2021 NoteHNO ID: [id number] Author: Renan Gates PT Service: ? Author Type: Physical Therapist Type: Progress Notes Filed: 08/08/2021 8:32 AM Note Text: Episode Visit Count: 1 Therapist That Will Oversee The Plan Of Care: Renan Gates Start of Care Date: 08/06/21 Onset Date: 07/27/14 Plan of Care Certification Date: 08/06/21 Patient Identified by Name and Date of : Yes REHABILITATION AND SPORTS THERAPY PHYSICAL THERAPY EVALUATION PLAN OF CARE: Assessment: Rudolph Teague presents with the chief complaint of chronic abdominal pain. She has pain and TTP along suprapubic ncision and along abdominal incision along linea alba. She presents with impairments of core weakness, compensated transfers, pain and lack of home exercise program. She may benefit from skilled therapy services to improve her core strength and to increase her scar mobility, all with the goal of decreasing her level of pain. Based on the clinical decision making and the AMA CPT codes this qualifies as a moderate complexity evaluation, 69173. Prognosis: Fair Fair due to: chronic nature of impairments Goals for Episode of Care: created on 08/06/21 through 10/01/21 Patient will demonstrate independence in home exercise program. Patient will tolerate 45min/day of activity 4 days/week with good tolerance to allow the patient to return to normal performance of ADLs AND IADLs. Pt will have decreased TTP along incisions in 8 weeks. Pt will demonstrate proper activation of TA in 4 weeks in order to improve core stability. Pt will demonstrate proper supine<>sit technique in order to decrease strain on abdominals and to protect LBP. Patient Goals: decerase pain, improve mobility Planned Interventions, Frequency, and Duration: Current Frequency: 1x/week Duration: 4 weeks Total Number of Visits Planned: 4 Planned Treatment Interventions: Therapeutic exercise (53886);Neuromuscular re-education (38338);Manual therapy (22432);Therapeutic activities (77232);Self-fdc management (10422);Patient/Family/Caregiver Education;Body Mechanics Training;Functional training;General Conditioning Patient demonstrates good understanding of plan of care and treatment. The above goals and plan of care were discussed and agreed upon by patient/family. SUBJECTIVE: Rudolph Teague is a 55 year old female seen today for chronic right sided abdominal pain. History of gastric bypass in 2004, hernia repair in 2006 and hernia with mesh repair in 2013. Continues to have abdominal discomfort, this is mid-line, transverse and to the right side. 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 Falls Interview: No positive findings with falls interview Pain: Pain Pain Level: (not quantified) Post Treatment Pain Post Treatment Pain Level: No Change PROMIS Scales T-scores: mean of general population = 50. 5 points is clinically meaningfully difference Percentiles provide an indication of how the patient's score ranks in relation to the general population. Higher percentile rankings indicate better function/quality of life. 50th percentile is the average of the general population and indicates half of respondents had a worse score. T-scores: mean of general population = 50. 5 points is clinically meaningfully difference Percentiles provide an indication of how the patient's score ranks in relation to the general population. Higher percentile rankings indicate better function/quality of life. 50th percentile is the average of the general population and indicates half of respondents had a worse score. OBJECTIVE MEASURES WITH LEVEL OF FUNCTION: Pelvic Floor Muscle Assessment Appearance: Scar Scar Appearance: along linea alba and suprapubic region Diastasis Rectus Abdominis: Negative Pelvic Floor Manual Assessment Scar Mobility: decreased to all scars with vertical incision least mobile External Pelvic Region Tenderness/ Hyperactivity - Trunk: Rectus abdominus;Suprapubic LE Strength Trunk Strength: poor Education: Education Learning Preferences: Demonstration;Explanation;Performance Barriers: None Learning/educational needs: Procedure / Surgery;Home exercise program;Plan of Care Education Provided: Yes, see treatment interventions for education provided Education Provided To: Patient Education Mode/Type: Demonstration;Literature/Printed Materials Response to Education/Teach Back: States/Identifies;Return Demonstration TREATMENT: PT Treatment Interventions: Manual Therapy Evaluation Manual Therapy: 1: CFM to linea albo and to transverse incision 2: centripital massage to incisons 3: educated the pt on above techniques for HEP Skilled Intervention: Manual skills to improve joint (more content not included)...[facility]09-16-2021 NoteHNO ID: [id number] Author: Vivian Vargas MD Service: ? Author Type: Physician Type: Progress Notes Filed: 07/28/2021 1:22 PM Note Text: Consultation requested by Dr. Booker for an opinion regarding abdominal pain/hernia. My final recommendations will be communicated back to the requesting physician by way of shared Medical record or letter to requesting physician via US mail. I have seen and evaluated the patient and discussed the case with the resident physician. I agree with the assessment and plan as documented in the resident?s note. 55 year old female with history of multiple prior hernia repairs and GBP and has some right sided abdominal pain and bulging. However on exam and review of her CT I don't feel a hernia. We discussed this is likely just scar tissue and I m going to send her for PT of the area. She'll let us know how that goes.[facility]09-16-2021 NoteHNO ID: [id number] Author: Shaniqua Montez MD Service: ? Author Type: Resident Type: Progress Notes Filed: 07/28/2021 1:22 PM Note Text: [facility] - HISTORY AND PHYSICAL Chief Complaint: Abdominal pain possible hernia HPI: Rudolph Teague is a 55 year old female with PMhx Craig-en-Y gastric bypass 2004, hernia repair and upper body lift 2006, hernia repair with mesh 2013, lap cholecystectomy 2000 who presents with right flank and pelvic pain that she believes is a hernia. Symptoms include pain when getting out of bed. She has no trouble eating; no nausea/vomiting; passing flatus. She weighted 409lb before bypass surgery and lost 209lb with bypass, then gained majority back. Relevant previous operations include: see above No history of Psychiatric Disorders or Opioid Use Unknown Unknown Unknown No Significant Comorbidities History of open abdomen No past medical history on file. No past surgical history on file. Social History Tobacco Use - Smoking status: Never Smoker - Smokeless tobacco: Never Used Substance Use Topics - Alcohol use: Not on file - Drug use: Not on file Additional social history not relevant to the patient's HPI No family history on file. Additional family history not relevant to the patient's HPI ALLERGIES Allergen Reactions - Penicillins Hives Current Outpatient Medications Medication Sig Dispense Refill - amitriptyline (ELAVIL) 25 mg tablet - dicyclomine (BENTYL) 20 mg tablet - gabapentin (NEURONTIN) 300 mg capsule - traMADol (ULTRAM) 50 mg tablet - cyclobenzaprine (FLEXERIL) 10 mg tablet No current facility-administered medications for this visit. REVIEW OF SYSTEMS The remainder of the 12 review of systems is negative other than what was mentioned in the HPI and above. BP 152/65 Pulse 63 Temp 36.4 ?C (97.6 ?F) (Temporal) Ht 167.6 cm (5' 6 ) Wt 109.8 kg (242 lb) BMI 39.06 kg/m? Physical findings of this patient are as follows (COMPLETE 10 INCLUDING HEART AND LUNG EXAM OR CHOOSE NORMAL EXAM IF APPROPRIATE): Physical Exam Physical Exam Constitutional: The patient is well-developed, well-nourished, and in no distress. Head: Normocephalic and atraumatic. Eyes: Pupils are equal, round, and reactive to light. EOM are normal. Neck: Normal range of motion. Neck supple. Cardiovascular: Regular rhythm and normal heart sounds. Pulmonary/Chest: Effort normal and breath sounds normal. Abdominal: Soft. Bowel sounds are normal. Musculoskeletal: Normal range of motion. Neurological: He is alert. GCS score is 15. Skin: Skin is warm and dry. Psychiatric: Affect and judgment normal. Relevant Hernia Findings No abdominal hernia appreciated LABS: No results found for: HBA1C IMAGING - Reviewed with staff CT abd/pel 07/27 reviewed; no recurrent hernia Assessment: Rudolph Teague is a 55 year old female with PMhx Craig-en-Y gastric bypass 2004, hernia repair and upper body lift 2006, hernia repair with mesh 2013, lap cholecystectomy 2000 who presents with right flank and pelvic pain that she believes is a hernia. CT abd/pel yesterday demonstrates no recurrent hernia, consistent with physical exam. Explained to patient that pain is likely due to scar tissue formed as a result of prior surgeries; encouraged her to seek physical therapy for exercises to reduce this. Patient expressed understandable and is agreeable to plan as she currently sees PT in [facility] for back pain. Seen / discussed with Dr. Vargas. Plan: Physical therapy consult placed to exercise abdomen Shaniqua Montez MD General Surgery PGY-1 July 28, 2021 [facility]21 NoteHNO ID: [id number] Author: RT Ambar(R) Service: ? Author Type: Technologist Type: Progress Notes Filed: 07/27/2021 12:50 PM Note Text: Radiology Service Progress Note PATIENT NAME: Rudolph Teague DATE OF SERVICE: July 27, 2021 TIME: 12:50 PM PATIENT IDENTITY VERIFICATION COMPLETED USING TWO (2) IDENTIFIERS: Name and Date of confirmed by patient verbally. FALL SCREENING: Has the patient had 2 falls in the last year or 1 fall with injury or currently using an Ambulatory Assistive Device (Walker, Cane, Wheelchair, Crutches, etc.)? No PATIENT GENDER DATA: Female. status: : No status: NO. PATIENT RELEVANT IMPLANT DATA REVIEWED: Not Applicable RADIOLOGY DEPARTMENT: CT; Exam(s) Completed: Abdomen/Pelvis PERIPHERAL IV DATA: Not applicable SIGNED BY: RT Ambar(R) July 27, 2021 12:50 [facility] note* Diagnosis Ventral hernia without obstruction or gangrene Ventral hernia, unspecified, without mention of obstruction or gangrene documented in this encounter [facility] noteNo assessment information [facility] Work Phone: Evaluation note* Diagnosis Onset Date Resolution Status Dysuria acute [facility] Work Phone: History general Narrative - Reported* Type Description Date Medical History gall bladder disease/removed Medical History hernia Medical History varicose veins Medical History Gastric bypass Medical History Hysteroscopy,D&C, Myosure Polype ctomy Dr Wright Medical History Colonoscopy Medical History Hyperlipedemia Medical History Diverticulitis Medical History lumbar degenerative disease Medical History osteoarthritis of right knee Medical History addominoplasty Medical History depression Surgical History cholecystectomy Surgical History Craig-en-y gastric bypass 2006 Surgical History hernia repair Surgical History adhesions Surgical History wisdom teeth Surgical History cryo to cervix x 2 Surgical History body lift/ extra skin removal Surgical History Hysteroscopy, D&C, Myosure Poly pectomy Dr Wright Surgical History Colonoscopy Surgical History diverticulosis Hospitalization History SEE ABOVE Hospitalization History Chest pain overnight[non cardiac] , Tremor Video Other Summary Purpose Family History No Family History Records Found Relationship Condition Age at Onset Recorded Date/T coty father Hypertension Unknown Coronary artery disease Unknown Not Specified Hypertension Unknown brother Hypertension Unknown family member Obesity Unknown father Obesity Unknown Heart disease Unknown Hypertension Unknown grandparent Obesity Unknown Advance Directives No Advanced Directives Records Found Advance Directive Response Recorded Date/ Time Advance Directives No October 12:49pm Reason for Referral Specialty Diagnoses / Procedures Referred By Favio callejas Referred To Contact CT IMAGING Diagnoses Ventral hernia without obstruction or gangrene Procedures CT ABD/PEL WO IVCON CT ABD & PELVIS W/O CONTRAST Ariella Dao, 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SHUTTLELESS LOOM WEAVER [address] [place] [address] Ct Imaging [place] [id number] Referral ID Status Reason Start Date Expiration Date V isits Requested Visits Authorized [id number] Closed Auto-Generate d Referral 07/15/2021 08/13/2021 2 2 Chief Complaint and Reason for Visit Chief Complaint possible uti Chief Complaint possible uti Reason for Visit Dysuria Additional Source Comments INFORMATION SOURCE (unrecogn ized section and content) DATE CREATED AUTHOR 05/07/2018 [facility] DATE CREATED AUTHOR AUTHOR'S ORGANIZ ATION 08/09/2020 [facility] DATE CREATED AUTHOR AUTHOR'S ORGANIZ ATION 01/01/2022 [facility] DATE CREATED AUTHOR AUTHOR'S ORGANIZ ATION 09/04/2022 [facility] DATE CREATED AUTHOR AUTHOR'S ORGANIZ ATION 11/12/2022 [facility] DATE CREATED AUTHOR AUTHOR'S ORGANIZ ATION 02/29/2024 [facility] EPIC DATE CREATED AUTHOR AUTHOR'S ORGANIZ ATION 03/07/2024 [facility] REASON FOR VISIT (unrecogniz ed section and content) Specialty Diagnoses / Procedures Referred By Contac t Referred To Contact CT IMAGING Diagnoses Ventral hernia without obstruction or gangrene Procedures CT ABD/PEL WO IVCON CT ABD & PELVIS W/O CONTRAST Jorge LuislylyAriella, 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SHUTTLELESS LOOM WEAVER [address] [place] [address] Ct Imaging [id number] Referral ID Status Reason Start Date Expiration Date V isits Requested Visits Authorized [id number] Closed Auto-Generate d Referral 07/15/2021 08/13/2021 2 2 Source Comments (unrecognize d section and content) In the event this informatio n is protected by the Federal Confidentiality of Alcohol and Drug Abuse Patient Records regulations: The Federal rules restrict any use of the information to criminally investigate or prosecute any alcohol or drug abuse patient.[facility] the event this information is protected by the Federal Confidentiality of Alcohol and Drug Abuse Patient Records regulations: The Federal rules restrict any use of the information to criminally investigate or prosecute any alcohol or drug abuse patient.[facility] Care Teams (unrecognized sec tion and content) Editor House Organ Relationship Specialty Start Date End Date Elsa Booker DO [address] [place] [address] PCP - General 08/05/08 Editor House Organ Relationship Specialty Start Date End Date Elsa Booker DO [address] [place] [address] PCP - General 08/05/08 Team Status: Active Member Role Status Dates Elsa Booker DO Primary Care Provider Active Team Status: Inactive Member Role Status Dates Elsa Booker DO Primary Care Provider Active Start: February 26, 2024 End: February 26, 2024 Shanelle Read PA-C Attending Provider Active St art: February 26, 2024 End: February 26, 2024 Team Status: Inactive Member Role Status Dates Shanelle Read PA-C Attending Provider Active St art: February 26, 2024 End: February 26, 2024 Goals (unrecognized section and content) Goals may be documented in a n alternate section FOR RECORDS PERTAINING TO PATIENTS WHO ARE OR HAVE BEEN ENROLLED IN A CHEMICAL DEPENDENCY/SUBSTANCEABUSE PROGRAM, SOME INFORMATION MAY BE OMITTED. This clinical summary was aggregated from multiple sources. Caution should be exercised in using it in the provision of clinical care. This summary normalizes information from multiple sources, and as a consequence, information in this document may materially change the coding, format and clinical context of patient data. In addition, data may be omitted in some cases. CLINICAL DECISIONS SHOULD BE BASED ON THE PRIMARY CLINICAL RECORDS. [facility] [employer] [facility]. provides no warranty or guarantee of the accuracy or completeness of information in this document.
[2024-04-24 19:54] VITALS: BP 152/96; PULSE 75; TEMP 36.7; O2SAT 97; BMI 39.2
--- NOTE | 2024-04-24 20:11 | CT_ITS ---
[address] [address] Patient Name: RUDOLPH TEAGUE MRN: [id number] date: 1965 Sex: F Assigned Patient Location: ER Current Patient Location: Accession/Order Number: [id number] Exam Date: 04/24/2024 20:45 Report Date: 04/24/2024 22:08 At the request of: YURIDIA BARKLEY Procedure: CT soft tissue neck w con EXAM: CT soft tissue neck w con HISTORY: left neck pain, s/p root canal for dental abscess COMPARISON: None. TECHNIQUE: Axial CT scans of the neck were obtained with IV contrast administration. MPR images were obtained. Dose reduction techniques were achieved by using: automated exposure control and/or adjustment of mA and /or kV according to patient size and/or use of iterative reconstruction technique. FINDINGS: The visualized intracranial contents appear normal. Intraorbital contents appear normal. The paranasal sinuses, middle ear cavities and mastoids are clear. The assistant womens volleyball coach spaces, parotid glands and parapharyngeal spaces appear normal. The nasopharynx, oropharynx and hypopharynx appear normal. The oral tongue is partially obscured by beam hardening artifact from dental amalgam. The floor of the mouth and the submandibular glands appear normal. The thyroid gland and the larynx appear normal. The prevertebral space shows no edema. Root canal of the left mandibular first molar tooth is noted. No abnormal subgingival fluid collection to suggest an abscess. No adenopathy. The visualized upper lungs are clear. Osseous structures are intact. CT/CT soft tissue neck w con IMPRESSION: Status post root canal of the left mandibular first molar tooth. No evidence of a subgingival abscess. Electronically authenticated by: MISTY LLOYD Date: 04/24/2024 22:08
--- NOTE | 2024-04-24 20:11 | CT_ITS ---
The [address] [address] Patient Name: RUDOLPH TEAGUE MRN: [id number] date: 1965 Sex: F Assigned Patient Location: ER Current Patient Location: [facility] Accession/Order Number: [id number] Exam Date: 04/24/2024 20:45 Report Date: 04/24/2024 21:59 At the request of: YURIDIA BARKLEY Procedure: CT facial bones w con EXAM: CT facial bones w con HISTORY: Patient had root canal on 04/21/2024 with left-sided neck pain. TECHNIQUE: Axial CT scans through the maxillofacial bony structures were obtained with contrast administration. Coronal and sagittal reconstruction images were obtained. Dose reduction techniques were achieved by using: automated exposure control and/or adjustment of mA and /or kV according to patient size and/or use of iterative reconstruction technique. FINDINGS: The visualized intracranial contents appear normal. Intraorbital contents appear normal. Paranasal sinuses, middle ear cavities and visualized mastoids are clear. Liquified Natural Gas Technician spaces, parotid glands and parapharyngeal spaces appear normal. The nasopharynx, and oropharynx appear normal. The oral tongue is partially obscured by beam hardening artifact from dental amalgam. The floor the mouth and the submandibular glands appear normal. Root canal of the left mandibular first molar tooth is noted. No lingual or buccal subgingival fluid collection to suggest an abscess. CT/CT facial bones w con IMPRESSION: Root canal of the left mandibular first molar tooth is noted. No evidence of a subgingival abscess. Electronically authenticated by: MISTY LLOYD Date: 04/24/2024 21:59
--- NOTE | 2024-04-24 20:13 | ED_ITS ---
HPI - Dental/Oral General Chief complaint: Dental/Oral Stated complaint: Dental and Chills Time Seen by Provider: 04/24/24 19:46 Source: patient Mode of arrival: walk-in Limitations: no limitations History of Present Illness HPI Narrative: Patient is a 58-year-old female who presents to the emergency department with concern for pain and infection status post dental procedure. She states that she was diagnosed with a dental abscess on 04/07 and was started on clindamycin. She had a root canal 3 days ago to the left mandible. She had some bloody drainage after the procedure and was told by her dentist that this is normal. She was switched in the last day to Keflex and a Medrol dose shan. She states she is concerned because she has pain and tingling to the left side of the face, left side of the neck and going into her left arm. She has no numbness, difficulty moving her extremities or speaking. She is speaking easily in initial interview with normal symmetry of the face, she is using both arms equal ly. She states her friend who is an ER nurse told her that she may be festering and infection requiring her to come to the emergency department she is visibly anxious at initial interview. Related Data Home Medications ?Medication ?Instructions ?Recorded ?Confirmed cephalexin 500 mg capsule mg 04/24/24 cyclobenzaprine 10 mg tablet mg 04/24/24 dicyclomine 20 mg tablet 20 mg PO QID 04/24/24 04/24/24 estradiol 0.01% (0.1 mg/gram) vaginal 04/24/24 vaginal cream methylprednisolone 4 mg tablets in mg 04/24/24 a dose pack oxycodone-acetaminophen 5 mg-325 tab 04/24/24 mg tablet Allergies Allergy/AdvReac Type Severity Reaction Status Date / Time Penicillins Allergy Mild Verified 04/24/24 20:00 Review of Systems ROS Constitutional Reports: chills; Denies: fever Ears, nose, mouth, and throat Reports: mouth pain; Denies: throat pain or nasal congestion Respiratory Denies: shortness of breath Gastrointestinal Denies: nausea or vomiting Musculoskeletal Reports: neck pain; Denies: back pain Integumentary/Breast Denies: rash Neurological Denies: headache Hematologic/Lymphatic Denies: easy bruising or easy bleeding Exam Narrative Exam Narrative: Gen.: Awake, alert, in no distress Head: Normocephalic, atraumatic ENT: Moist mucous membranes, Tooth #20 and 21 with postsurgical changes to the teeth, no visible dental abscess. No redness or swelling under the tongue. Clear speech, symmetric movement of the mouth noted. No drooping of the face. No palpable swelling or fluctuance. No swelling noted of the neck, no fluctuance or induration Respiratory: No respiratory distress Extremities: Moves extremities equally, no injuries noted Psych: Normal mood and affect Neuro: No focal neuro deficit Skin: Warm, dry, intact Constitutional Vital Signs, click to edit/add: Last Vital Signs Temp 98.0 F 04/24/24 19:54 Pulse 75 04/24/24 19:54 Resp 16 04/24/24 19:54 BP 152/96 H 04/24/24 19:54 Pulse Ox 97 04/24/24 19:54 O2 Del Method Room Air 04/24/24 19:54 Course Vital Signs Vital signs: Vital Signs Temperature 98.0 F 04/24/24 19:54 Pulse Rate 75 04/24/24 19:54 Respiratory Rate 16 04/24/24 19:54 Blood Pressure 152/96 H 04/24/24 19:54 Pulse Oximetry 97 04/24/24 19:54 Oxygen Delivery Method Room Air 04/24/24 19:54 Temperature 98.0 F 04/24/24 19:54 Pulse Rate 75 04/24/24 19:54 Respiratory Rate 16 04/24/24 19:54 Blood Pressure 152/96 H 04/24/24 19:54 Pulse Oximetry 97 04/24/24 19:54 Oxygen Delivery Method Room Air 04/24/24 19:54 MDM - Dental/Oral MDM Narrative Medical decision making narrative: 2141: Patient treated with IV fluids, she declined pain medication in the ER. Lab studies show normal white blood cell count with normal lactic acid and vital signs are within normal limits. At this time I have no concern for sepsis. EKG and troponin were added to the patient's workup due to jaw pain. CT of the facial bones as well as CT of the soft tissue of the neck were ordered to rule out infection. Patient with no focal neurodeficits, no evidence of stroke at this time. Case is turned out to attending physician for disposition labs and scans returned unremarkable and patient discharged home Medical Records Attestation: I reviewed the patient's medical records. Lab Data Attestation: I reviewed the patient's lab results. Labs: Lab Results 04/24/24 04/24/24 Range/Units 20:24 20:38 WBC 9.3 (4.0-11.0) 10^3/uL RBC 4.42 (4.20-5.40) 10^6/uL Hgb 13.1 (12.0-16.0) g/dL Hct 39.9 (36.0-48.0) % MCV 90.3 (81.0-99.0) fL MCH 29.6 (26.7-34.0) pg MCHC 32.8 (29.9-35.2) g/dL RDW 12.9 (11.0-15.0) % Plt Count 360 (150-450) 10^3/uL MPV 10.1 (9.5-13.5) fL Neut % (Auto) 91.4 H (43.0-75.0) % Lymph % (Auto) 5.7 L (20.5-60.0) % [place] % (Auto) 1.3 L (1.7-12.0) % Eos % (Auto) 0.9 (0.9-7.0) % Baso % (Auto) 0.5 (0.2-2.0) % Neut # (Auto) 8.5 H (1.4-6.5) 10^3/uL Lymph # (Auto) 0.5 L (1.2-3.8) 10^3/uL [place] # (Auto) 0.1 L (0.3-0.8) 10^3/uL Eos # (Auto) 0.1 (0.0-0.7) 10^3/uL Baso # (Auto) 0.1 (0.0-0.1) 10^3/uL Abs Immat Gran (auto) 0.02 (0.00-0.03) 10^3/uL Imm/Tot Granulo (auto) 0.2 (0.0-0.5) % VBG pH 7.438 H (7.330-7.430) VBG pCO2 40.0 (40.0-52.0) mmHg Sodium 140 (136-145) mmol/L Potassium 4.5 (3.5-5.1) mmol/L Chloride 104 (98-107) mmol/L Carbon Dioxide 29.5 (21.0-32.0) mmol/L Anion Gap 11.0 BUN 14.0 (7.0-18.0) mg/dL Creatinine 0.80 (0.55-1.02) mg/dL Est GFR ( Amer) >60 (>=60) Est GFR (Non-Af Amer) >60 (>=60) BUN/Creatinine Ratio 17.5 Glucose 125 H (74-106) mg/dL Lactate 1.0 (0.4-2.0) mmol/L Calcium 9.7 (8.5-10.1) mg/dL Total Bilirubin 0.3 (0.2-1.0) mg/dL AST 26 (15-37) U/L ALT 51 (14-59) U/L Alkaline Phosphatase 111 (46-116) U/L Troponin I High Sens 5.9 (4.0-51.3) pg/mL Total Protein 7.9 (6.4-8.2) g/dL Albumin 4.1 (3.4-5.0) g/dL Globulin 3.8 g/dL Albumin/Globulin Ratio 1.1 Discharge Plan Discharge Stand Alone Forms: Portal Instructions Chief Complaint: Dental/Oral Clinical Impression: Atypical face pain Patient Disposition: Home, Self-Care Prescriptions / Home Meds: No Action cyclobenzaprine 10 mg tablet oxycodone-acetaminophen 5-325 mg tablet cephalexin 500 mg capsule estradiol 0.01 % (0.1 mg/gram) cream VAGINAL methylprednisolone 4 mg tablets,dose pack dicyclomine 20 mg tablet 20 mg PO QID Print Language: Citizen [place] Referrals: ELSA THOMASON [Primary Care Provider] - 1 week
[2024-04-24 20:36] LABS: Basophils Absolute Auto 0.1 10^3/uL (0.0-0.1); Basophils Percent Auto 0.5 % (0.2-2.0); Eosinophils Absolute Auto 0.1 10^3/uL (0.0-0.7); Eosinophils Percent Auto 0.9 % (0.9-7.0); Hematocrit 39.9 % (36.0-48.0); Hemoglobin 13.1 g/dL (12.0-16.0); Immature Granulocytes Abs Auto 0.02 10^3/uL (0.00-0.03); Immature Granulocytes Pct Auto 0.2 % (0.0-0.5); Lymphocytes Absolute Auto 0.5 10^3/uL (1.2-3.8); Lymphocytes Percent Auto 5.7 % (20.5-60.0); Mean Corpuscular HGB Conc 32.8 g/dL (29.9-35.2); Mean Corpuscular Hemoglobin 29.6 pg (26.7-34.0); Mean Corpuscular Volume 90.3 fL (81.0-99.0); Mean Platelet Volume 10.1 fL (9.5-13.5); Monocytes Absolute Auto 0.1 10^3/uL (0.3-0.8); Monocytes Percent Auto 1.3 % (1.7-12.0); Neutrophils Absolute Auto 8.5 10^3/uL (1.4-6.5); Neutrophils Percent Auto 91.4 % (43.0-75.0); Platelet Count 360 10^3/uL (150-450); Red Blood Count 4.42 10^6/uL (4.20-5.40); Red Cell Distribution Width 12.9 % (11.0-15.0); White Blood Count 9.3 10^3/uL (4.0-11.0)
[2024-04-24 20:46] LABS: pH VBG 7.438 (7.330-7.430)
--- NOTE | 2024-04-24 20:51 | PC.NURSE ---
patient with left sided numbness of face and tingling of neck and chest after a root canal. She is concerned for infection and requests labs and imaging after a friend that is an ER nurse warned her that it sounds like she has sepsis.
[2024-04-24] MEDS: 0.9 % SODIUM CHLORIDE 1,000 ML 999 ML IV (20:59)
[2024-04-24 21:19] LABS: Alanine Aminotransferase 51 U/L (14-59); Albumin Globulin Ratio 1.1; Albumin Level 4.1 g/dL (3.4-5.0); Alkaline Phosphatase 111 U/L (46-116); Aspartate Amino Transferase 26 U/L (15-37); BUN Creatinine Ratio 17.5; Bilirubin Total 0.3 mg/dL (0.2-1.0); Calcium 9.7 mg/dL (8.5-10.1); Carbon Dioxide 29.5 mmol/L (21.0-32.0); Chloride 104 mmol/L (98-107); Estimated GFR (African America >60 (>=60); Estimated GFR (Non-African Ame >60 (>=60); Globulin 3.8 g/dL; Glucose 125 mg/dL (74-106); Potassium 4.5 mmol/L (3.5-5.1); Sodium 140 mmol/L (136-145); Total Protein 7.9 g/dL (6.4-8.2)
--- NOTE | 2024-04-24 21:39 | ECG_ITS ---
[facility] Test Date: 2024-04-24 Pat Name: RUDOLPH TEAGUE Department: Room: - Gender: Female Vascular Physician: : 1965 Requested By: Order Number: [id number] Reading MD: AYO COATES Measurements Intervals [place] Rate: 71 P: 58 OK: 196 QRS: 42 QRSD: 104 T: 37 QT: 426 QTc: 449 Interpretive Statements 1100 Sinus rhythm 8102 Low QRS voltage in chest leads 9120 atypical ECG No previous ECG available for comparison Electronically Signed On 04-24-2024 23:14:04 EDT by AYO COATES
[2024-04-24 22:00] LABS: Troponin I High Sensitivity 5.9 pg/mL (4.0-51.3)
== END 2024-04-24 23:48 | disposition home or self-care (01) ==
PROVIDERS: Physician Assistant; Emergency Provider Internal Medicine; PCP Internal Medicine
DX: G50.1 Atypical facial pain (principal)
CPT/HCPCS: 36415; 70487; 70491; 80053; 82800; 83605; 84484; 85025; 93005; 99285; Q9967

== ENCOUNTER 2024-11-12 09:58 | Outpatient (RCR) | payer BC, SELFPAY | END 2024-12-27 07:13 | disposition home or self-care (01) | LOC: PT 09:58 | PROVIDERS: PCP Internal Medicine; Visit Provider Internal Medicine | DX: M51.360 Other intervertebral disc degeneration, lumbar region with discogenic back pain only (principal) | CPT/HCPCS: 20561 ==

== ENCOUNTER 2025-01-20 18:19 | Emergency (ER) | payer OTHER, BC, SELFPAY ==
[2025-01-20 18:20] VITALS: BP 173/97; PULSE 66; TEMP 36.6; O2SAT 100; BMI 42.3
--- OUTSIDE RECORDS SUMMARY | 2025-01-20 18:23 | XMS_ITS | CCD ---
Author Organization [facility] Inform ion Partnership [facility] Care Team Providers Care Desktop Manager Name Role Phone Shanelle Hitchcock Unavailable LuigiAddy Unavailable Tony Mittal Unavailable JHONY, DR HUNTER Admitting Unavailable JHONY, DR HUNTER Attending Unavailable JHONY, DR HUNTER Admitting Unavailable JHONY, DR HUNTER Attending Unavailable Elsa Booker DO Primary Care Provider TERI Read Attending Provider Shanelle Read Admitting Unavailable Shanelle Read Attending Unavailable Self, Referral Attending Unavailable Elsa Booker Primary Care Unavailable Self, Referral Admitting Unavailable HEYDI IBRAHIM Attending Unavailable ELSA BOOKER Attending Unavailable ELSA BOOKER Attending Unavailable ELSA BOOKER Referring Unavailable GIOVANNI HUDDLESTON Referring Unavailable Elsa Booker DO Unavailable Elsa Booker DO Primary Care Provider Allergies Allergy Classification Reported Allergen(s) Allergy Type Date of Onset Reaction(s) Facility (7 sources) Ibuprofen Drug Allergy 3 Unknown, Unknown Reaction [facility] (8 sources) Penicillin V Drug Allergy 4 Unknown, Unknown Reaction [facility] (4 sources) Penicillins Propensity to adverse reactions 8 [facility] (1 source) Ibuprofen Drug Allergy 4 [facility] (1 source) Penicillin Drug Allergy 4 [facility] (1 source) Penicillins Drug allergy (disorder) 4 [facility] (2 sources) Penicillins Drug Intolerance 8 Hives [facility] Medications Current Medications Medication Drug Class(es) Dates Sig (Normalized) Sig (Original) amitriptyline hydrochloride 25 mg oral tablet (3 sources) Tricyclic Antidepressant Start: 09-07-2020 take 25 mg by mouth at bedtime Amitriptyline Active 25 MG PO Bedtime June 23, 2021 12:00am ascorbic acid 1000 mg oral tablet (4 sources) Vitamin C Start: 11-20-2017 take 1 tablet by mouth once daily Ascorbic Acid (Vitamin C) (Vitamin C) 1,000 mg Tablet Active 1000 MG PO Daily November 20, 2017 1:00am atropine sulfate 10 mg/ml ophthalmic solution (2 sources) Anticholinergic, Cholinergic Muscarinic Antagonist Start: 10-01-2023 atropine 1 % ophthalmic solution Administer 1 drop into both eyes 10/01/2023 Active cholecalciferol 0.125 mg oral tablet (2 sources) Vitamin D Start: 11-20-2017 take 1 tablet by mouth once daily Cholecalciferol (Vitamin D3) (Vitamin D3) 5,000 unit Tablet Active 5000 UNIT PO Daily November 20, 2017 1:00am cyclobenzaprine hydrochloride 10 mg oral tablet (6 sources) Muscle Relaxant Start: 09-29-2024 take 1 tablet by mouth in the morning, then take 1 tablet by mouth in the evening, then take 1 tablet by mouth at bedtime cyclobenzaprine (Flexeril) 10 MG tablet Indications: Lumbar degenerative disc disease Take 1 tablet (10 mg) by mouth in the morning and 1 tablet (10 mg) in the evening and 1 tablet (10 mg) before bedtime. 90 tablet 3 09/29/2024 Active Start: 06-23-2021 take 10 mg by mouth three times daily Cyclobenzaprine Active 10 MG PO Three times daily June 23, 2021 12:00am take 1 tablet by shira th every eight hours as needed Cyclobenzaprine HCl 10 MG 1 tablet Orally every 8 hrs prn Active dexamethasone 0.001 mg/mg / neomycin 0.0035 mg/mg / polymyxin b 10 unt/mg ophthalmic ointment (2 sources) Aminoglycoside Antibacterial, Polymyxin-class Antibacterial, Corticosteroid Start: 10-01-2023 vebwvbgp-[id number]-mviTFTUOs sone (Polydex) 3.5-30110-0.1 ointment ophthalmic ointment Apply to right eye 10/01/2023 Active dicyclomine hydrochloride 20 mg oral tablet (7 sources) Anticholinergic Start: 06-23-2021 take 20 mg by mouth twice daily Dicyclomine Active 20 MG PO Twice daily June 23, 2021 12:00am Start: 09-07-2020 take 1 tablet by shira th four times daily as needed Dicyclomine HCl 20 MG 1 tablet Orally qid prn for 30 day(s) Aug, Active take 1 tablet by shira th every twelve hours dicyclomine (Bentyl) 20 MG tablet Take 20 mg by mouth every 12 (twelve) hours Active estradiol 0.1 mg/ml vaginal cream (2 sources) Estrogen Start: 10-08-2023 estradiol (Estrace) 0.1 MG/GM vaginal cream Insert into the vagina Daily 10/08/2023 Active estrogens, conjugated (retirement) 0.625 mg/ml vaginal cream (3 sources) Estrogen Premarin 0.625 MG/GM as directed Vaginal Active ferrous sulfate 325 mg oral tablet (7 sources) Start: 11-20-2017 take 1 tablet by mouth once daily Ferrous Sulfate (Iron) 325 mg (65 mg iron) Tablet Active 325 MG PO Daily November 20, 2017 1:00am fluticasone (3 sources) Corticosteroid Flonase prn Active gabapentin 300 mg oral capsule (9 sources) Anti-epileptic Agent Start: 05-28-2023 take 1 capsule by mouth in the morning, then take 1 capsule by mouth in the evening, then take 1 capsule by mouth at bedtime gabapentin (Neurontin) 300 MG capsule Indications: Metabolic syndrome Take 1 capsule (300 mg) by mouth in the morning and 1 capsule (300 mg) in the evening and 1 capsule (300 mg) before bedtime. 270 capsule 3 05/28/2023 Active Start: 06-06-2018 End: 06-06-2018 take 300 mg by mouth twice daily [...] TAB PO Daily November 20, 2017 1:00am polyethylene glycol 3350 15562 mg powder for oral solution (5 sources) Osmotic Laxative polyethylene glycol, PEG, 3350 (MiraLax) 17 GM/SCOOP powder as directed Orally Active MiraLax Active prednisoLONE acetate 10 mg/ml ophthalmic suspension (2 sources) Corticosteroid Start: 10-23-2023 take 2 drop(s) into the eye(s) in the morning, then take 2 drop(s) into the eye(s) in the evening, then take 2 drop(s) into the eye(s) at bedtime prednisoLONE acetate (Pred-Forte) 1 % ophthalmic suspension Administer 2 drops into the right eye in the morning and 2 drops in the evening and 2 drops before bedtime. 10/23/2023 Active predniSONE 10 mg oral tablet (3 [...] Pain Active valACYclovir 1000 mg oral tablet (5 sources) Herpesvirus Nucleoside Analog DNA Polymerase Inhibitor, Herpes Simplex Virus Nucleoside Analog DNA Polymerase Inhibitor, Herpes Zoster Virus Nucleoside Analog DNA Polymerase Inhibitor valACYclovir (Valtrex) 1 g tablet Take 500 mg by mouth in the morning. Active take 2 tablets by [facility] every twelve hours as needed Valtrex 1 GM 2 tablets Orally q 12 hours/prn Active vitamin b12 1 mg oral tablet (7 sources) Vitamin B12 Start: 11-20-2017 take 1 [...] Active zinc gluconate 50 mg oral tablet (4 sources) take 1 tablet by shira th once daily zinc gluconate 50 MG tablet Take 50 mg by mouth 1 (one) time each day at the same time Active Completed/Discontinued Medications Medication Drug Class(es) Dates Sig (Normalized) Sig (Original) acetaminophen 325 mg / oxyCODONE hydrochloride 5 mg oral tablet (2 sources) Opioid Agonist Start: 11-20-2017 End: 06-06-2018 take 1-2 tablets by mouth every six hours as needed for pain Oxycodone-Acetamino phen (Percocet) 5-325 mg tablet Discontinued 1 - 2 TAB PO Q6H 8 November 20, 2017 1:00am June 06, 2018 [...] fasting glucose] Episodic Disorders of lipid metabolism (5 sources) Mixed hyperlipidemia; Translations: [Mixed hyperlipidemia] Onset: 10-30-2023 10-30-2023 Chronic Diverticulosis and diverticulitis (8 sources) Diverticulitis; Translations: [Diverticulitis of intestine, part unspecified, without perforation or abscess without bleeding] Onset: 10-30-2023 10-30-2023 Chronic Genitourinary symptoms and ill-defined conditions (3 sources) Dysuria; Translations: [Dysuria] Onset: 02-26-2024 02-26-2024 Episodic Menopausal disorders (2 sources) Atrophic vaginitis; Translations: [Postmenopausal atrophic vaginitis] Onset: 10-30-2023 10-30-2023 Chronic Mood disorders (3 sources) Major depression, single episode; Translations: [Major depressive disorder, single episode, unspecified] Chronic Osteoarthritis (5 sources) Osteoarthritis of knee; Translations: [Osteoarthritis of knee, unspecified] Onset: 10-30-2023 10-30-2023 Chronic Other gastrointestinal disorders (6 sources) History of bariatric surgical procedure; Translations: [Bariatric surgery status] Episodic Other nutritional; endocrine; and metabolic disorders (8 sources) Body mass index 40+ - severely obese; Translations: [Body mass index (BMI) 50.0-59.9, adult] Onset: 06-25-2024 06-25-2024 Chronic Other nutritional; endocrine; and metabolic disorders (3 sources) Severe obesity; Translations: [Morbid (severe) obesity due to excess calories] Chronic Other nutritional; endocrine; and metabolic disorders (2 sources) Obesity caused by energy imbalance; Translations: [Morbid (severe) obesity due to excess calories] Onset: 10-30-2023 06-25-2024 Chronic Peripheral and visceral atherosclerosis (2 sources) Abdominal aortic atherosclerosis; Translations: [Atherosclerosis of aorta] Onset: 06-25-2024 06-25-2024 Chronic Spondylosis; intervertebral disc disorders; other back problems (6 sources) Other intervertebral disc degeneration, lumbar region; Translations: [Degeneration of lumbar intervertebral disc] Onset: 05-30-2022 Chronic Spondylosis; intervertebral disc disorders; [...] [PAIN IN LEFT HIP] Onset: 06-13-2022 Episodic Other nutritional; endocrine; and metabolic disorders (5 sources) Metabolic syndrome X; Translations: [Metabolic syndrome] Onset: 10-30-2023 Resolved: 10-30-2023 10-30-2023 Chronic Varicose veins of lower extremity (2 sources) Varicose veins of lower extremity; Translations: [Varicose veins of bilateral lower extremities with pain] Onset: 10-30-2023 10-30-2023 Episodic Results Test Name Value Interpretation Reference Range Facility 25-hydroxyvitamin D3 [Mass/V ol]on 05-29-2024 25-hydroxyvitamin D [Mass/Vol] 34 ng/mL 30 - 100 ng/mL [facility] Comment on above: Vitamin D Status 25- [place] Vitamin D: Deficiency: <20 ng/mL Insufficiency: 20 - 29 ng/mL Optimal: > or = 30 ng/mL For 25-OH Vitamin D testing on patients on D2-supplementation and patients for whom quantitation of D2 and D3 fractions is required, the [employer]() 25-OH VIT D, (D2,D3), LC/MS/MS is recommended: order code 20249 (patients >2yrs). See Note 1 Note 1 For additional information, please refer to http://education.Prosodic/faq/PBM050 (This link is being provided for informational/ educational purposes only.) CBC W Auto Differential pane l (Bld)on 05-29-2024 Basophils (Bld) [#/Vol] 51 10*3/uL [facility] Basophils/100 WBC (Bld) 1.1 % [facility] Eosinophils (Bld) [#/Vol] 179 10*3/uL [facility] Eosinophils/100 WBC (Bld) 3.9 % [facility] Erythrocyte distribution width (RBC) [Ratio] 13.5 % 11.0 - 15.0 % [facility] Hematocrit (Bld) [Volume fraction] 37.2 % 35.0 - 45.0 % [facility] Hemoglobin (Bld) [Mass/Vol] 11.9 g/dL 11.7 - 15.5 g/dL [facility] Lymphocytes (Bld) [#/Vol] 796 10*3/uL Low [facility] Lymphocytes/100 WBC (Bld) 17.3 % [facility] MCH (RBC) [Entitic mass] 30.3 pg 27.0 - 33.0 pg [facility] MCHC (RBC) [Mass/Vol] 32.0 g/dL 32.0 - 36.0 g/dL [facility] MCV (RBC) [Entitic vol] 94.7 fL 80.0 - 100.0 fL [facility] Monocytes (Bld) [#/Vol] 354 10*3/uL [facility] Monocytes/100 WBC (Bld) 7.7 % [facility] Neutrophils (Bld) [#/Vol] 3220 10*3/uL [facility] Neutrophils/100 WBC (Bld) 70 % [facility] Platelet mean volume (Bld) [Entitic vol] 10.4 fL 7.5 - 12.5 fL [facility] Platelets (Bld) [#/Vol] 323 10*3/uL [facility] RBC (Bld) [#/Vol] 3.93 10*6/uL [facility] WBC (Bld) [#/Vol] 4.6 10*3/uL [facility] Comprehensive metabolic pane aimee 05-29-2024 Albumin [Mass/Vol] 3.9 g/dL 3.6 - 5.1 g/dL [facility] Albumin/Globulin [Mass ratio] 1.6 {ratio} [facility] ALP [Catalytic activity/Vol] 87 U/L 37 - 153 U/L [facility] ALT [Catalytic activity/Vol] 27 U/L 6 - 29 U/L [facility] AST [Catalytic activity/Vol] 23 U/L 10 - 35 U/L [facility] Bilirubin [Mass/Vol] 0.4 mg/dL 0.2 - 1.2 mg/dL [facility] Calcium [Mass/Vol] 9.2 mg/dL 8.6 - 10. 4 mg/dL [facility] Chloride [Moles/Vol] 104 mmol/L 98 - 110 mmol/L [facility] CO2 [Moles/Vol] 31 mmol/L 20 - 32 mmol/L [facility] Creatinine [Mass/Vol] 0.54 mg/dL 0.50 - 1.03 mg/dL [facility] GFR/1.73 sq M.predicted among non-blacks MDRD (S/P/Bld) [Vol rate/Area] 107 mL/min/{1.73_m2} > OR = 60 mL/min/1.73m2 [facility] Globulin (S) [Mass/Vol] 2.4 g/dL [facility] Glucose [Mass/Vol] 93 mg/dL 65 - 99 mg/dL [facility] Comment on above: Fasting reference interval Potassium [Moles/Vol] 5.0 mmol/L 3.5 - 5.3 mmol/L [facility] Protein [Mass/Vol] 6.3 g/dL 6.1 - 8.1 g/dL [facility] Sodium [Moles/Vol] 142 mmol/L 135 - 146 mmol/L [facility] Urea nitrogen [Mass/Vol] 21 mg/dL 7 - 25 mg/dL [facility] Urea nitrogen/Creatinin e [Mass ratio] SEE NOTE: [facility] Comment on above: Not Reported: BUN an d Creatinine are within reference range. Lipid 1996 panel 4 Cholesterol [Mass/Vol] 176 mg/dL [facility] - 200 mg/dL [facility] Cholesterol in HDL [Mass/Vol] 57 mg/dL > OR = 50 [facility] Cholesterol in LDL [Mass/Vol] 103 mg/dL High mg/dL (calc) [facility] Comment on above: Reference range: <10 0 Desirable range <100 mg/dL for primary prevention; <70 mg/dL for patients with CHD or diabetic patients with > or = 2 CHD risk factors. LDL-C is now calculated using the Efrem-Erlinda calculation, which is a validated novel method providing better accuracy than the Friedewald equation in the estimation of LDL-C. Efrem MARTINEZ et al. VASHTI. 2013;310(19): 0475-6234 (http://education.[employer].Shoto/faq/RXM764) Cholesterol non HDL [Mass/Vol] 119 mg/dL [facility] Comment on above: For patients with di abetes plus 1 major ASCVD risk factor, treating to a non-HDL-C goal of <100 mg/dL (LDL-C of <70 mg/dL) is considered a therapeutic option. Cholesterol.total/ Cholesterol in HDL [Mass ratio] 3.1 {ratio} [facility] Triglyceride [Mass/Vol] 70 mg/dL NINF - 150 mg/dL [facility] MICRONUTRIENT, VITAMIN B1 (T HIAMINE), BLOODon 05-29-2024 Thiamine (Bld) [Moles/Vol] 96 nmol/L 78 - 185 nmol/L [facility] Comment on above: Vitamin B1 is required for branched-chain amino acid and carbohydrate metabolism. Clinical deficiency is most often due to alcoholism or chronic illness. In the early stage, patients with vitamin B1 deficiency exhibit anorexia, irritability, apathy, and generalized weakness. Prolonged deficiency causes beriberi. For more information, visit https://ods.od.nih.gov/factsheet/Thiamin-HealthProfessi onal/ This test was developed and its analytical performance characteristics have been determined by [employer] [place], [place]. It has not been cleared or approved by the FDA. This assay has been validated pursuant to the CLIA regulations and is used for clinical purposes. No Panel Informationon 05-29 Interpretation and review of laboratory results Abnormal [facility] FASTING:YES FASTING: YES [employer] Performing Organizat ion Information Site ID: QPT Name: [facility] Address: [address] [place] [address], [address] [place] [id number] Director: Lenin Thomas MD [facility] Performing Organizat ion Information Site ID: AMD Name: [facility] Address: [address] [place] [address] [place], [place] Director: Wilbert Meléndez M.D.,PhD [facility] TSHon 05-29-2024 TSH Qn 1.15 m[IU]/L [facility] VITAMIN North 05-29-2024 Phytonadione [Mass/Vol] 292 pg/mL 130 - 1500 pg/mL [facility] Comment on above: This test was developed and its analytical performance characteristics have been determined by [facility] [place]. It has not been cleared or approved by the U.S. Food and Drug Administration. This assay has been validated pursuant to the CLIA regulations and is used for clinical purposes. Vitamin B12on 05-29-2024 Cobalamin (Vitamin B12) [Mass/Vol] 523 pg/mL 200 - 1100 pg/mL [facility] Vitamin B6on 07-18-2024 Pyridoxal phosphate [Mass/Vol] 15.7 ng/mL 2.1 - 21.7 ng/mL [facility] Comment on above: Vitamin supplementation within 24 hours prior to blood draw may affect the accuracy of the results. This test was developed and its analytical performance characteristics have been determined by [facility] [place]. It has not been cleared or approved by the U.S. Food and Drug Administration. This assay has been validated pursuant to the CLIA regulations and is used for clinical purposes. Vitamin Kam 05-29-2024 Alpha tocopherol [Mass/Vol] 12.6 mg/L 5.7 - 19.9 mg/L [facility] Comment on above: Levels of alpha-tocopherol <5 mg/L are consistent with Vitamin E deficiency in adults. Beta+gamma tocopherol [Mass/Vol] <1.0 NINF - 4.3 mg/L [facility] Comment on above: Vitamin supplementation within 24 hours prior to blood draw may affect the accuracy of the results. This test was developed and its analytical performance characteristics have been determined by [employer] [place]. It has not been cleared or approved by the U.S. Food and Drug Administration. This assay has been validated pursuant to the CLIA regulations and is used for clinical purposes. Urine Cultureon 02-26-2024 Bacteria identified Cx Nom (U) <9,000 colonies/ml mixed bacterial skin contaminants 2 Days PERFORMED BY: [place] [address] PATHOLOGIST COUNTER STITCHER CORIE BIRCH M.D. Normal [facility] Comment on above: Performed By: #### C UU #### [address] XR CHEST 2 VIEWSon 3 XR [...] n 05-22-2023 MM screening mammo BI w/CAD [facility] [place] [address] [place] [address] Mammography Report Signed Patient: Rudolph Teague MR#: [id number] 0 : 1965 Acct:[id number] Age/Sex: 57 / F ADM Date: 05/22/23 Loc: [place] Room: Type: [facility] Attending Dr: Referral Self Copies to: Elsa Booker,DO SELF,REFERRAL Ordering Provider: SELF,REFERRAL Date of Service: [...] Shira Reed M.D.05/22/2023 4:34 PM Dictation Location: [facility] Transcribed By: [facility] 05/22/23 1634 Dictated By: Shira Reed MD 05/22/23 1631 Signed By: 05/22/23 1634 Normal [facility] CT Abdomen/Pelvis w/ Contras ton [...] by Elsa Melara on 08/31/2022 1342 Normal [facility] Clinical Medical Assistant XR Spine Lumbar 4+ Views*on 03-03-2022 XR [...] by Elsa Melara on 03/03/2022 1143 Normal [facility] Specialist CNTHERAPYon 08-06-2021 CNTHERAPY OT/PT/Speech Visit (PTELYR) -- RUDOLPH TEAGUE ([id number]) 1965 F Date Time Provider Department 08/06/21 11:00 AM RENAN GATES Date Time Provider Department Center 08/06/2021 11:00 AM [id number], [facility] [place] Reason for Visit: PT Eval [747] [...] this qualifies as a moderate complexity evaluation, 66347. 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 Normal [facility] CNOVon 07-28-2021 CNOV Office Visit (JOANNA ) -- RUDOLPH TEAGUE ([id number]) 1965 F Date Time Provider Department 07/28/21 [...] Shaniqua Montez MD 07/28/2021 1:22 PM Signed [facility] for Abdominal [facility] - HISTORY AND PHYSICAL Chief Complaint: Abdominal pain possible hernia HPI: Rudolph Teauge is a 55 year old female with [...] plan as she currently sees PT in [facility] for back pain. Seen / discussed with Dr. Vargas. Plan: Physical therapy consult placed to exercise abdomen Shaniqua Montez MD General Surgery PGY-1 July 28, 2021 [facility] Hernia Service Vivian Vargas MD 07/28/2021 1:22 [...] don't fe (more content not included)... Normal [facility] CT ABD/PEL WO IVCONon 2020 CT ABD/PEL WO IVCON * * *Final Report* * * DATE OF EXAM: Jul 27 2021 12:49PM [facility] 0531 - CT ABD/PEL WO IVCON / [...] No destructive osseous lesions. Lower thorax: Unremarkable. Forest Resource Specialist (topogram) images: No additional findings. IMPRESSION: Prior ventral abdominal wall hernia repair. No recurrent hernia. Field Supervisor: PSCB Transcribe Date/Time: Jul 27 2021 12:53P Dictated by : CARLOS ENRIQUE CARRASCO MD This examination was interpreted and the report reviewed and electronically signed by: CARLOS ENRIQUE CARRASCO MD on Jul 27 2021 1:05PM EST [id number] Normal [facility] CT CARDIAC SCORINGon 07-14 CT CARDIAC SCORING Addendum Begins Patient Name: RUDOLPH TEAGUE ADDENDUM: Technical: Following is to serve as [...] INDICATION: PREP GIVEN. COMPARISON: None. ACCESSION NUMBER(S): [id number] ORDERING CLINICIAN: ELSA BOOKER TECHNIQUE: Using prospective [...] increased >800 Shahnaz et al. JCCT 2016 (http://dx.doi.org/10.1016 /j.jcct.2016.11.003) TORRES Percentile In general, greater than 75th [...] Calcification can be calcuate using link below https://www.torres-nhlbi.org /MESACHDRisk/MesaRiskScore /RiskScore.aspx Constanza et al. JACC 2015 (http://dx.doi.org/10.1016 /j.j acc.2015.08.035) [employer] Supervisor: Dr. Vivian Allen, Date: 08/09/2020 10:29 am Electronically signed by: ALLYN TY MD [facility] SURGICAL PATHOLOGYon 018 SURGICAL PATHOLOGY Specimen #: [id number] Physician: ALFREDA PEÑALOZA M.D. FINAL DIAGNOSIS1. Endometrium, designated myomectomy (G12-957A) - Non-atypical endometrialhyperplasia with secretory change involving fragments of endometrial polyp.- Limited sample of benign non-polyp endometrium with stromal breakdown. 2. Endometrium, curettings (T59-261K) - Superficial sample of benignendometrium with extensive stromal breakdown. - Limited sample of benign endocervix.CVB/john 11/26/2017 COMMENTThank you for submitting this case. If you have questions, please call [facility] [phone].Dhruv Pepe M.D.(Electronic Signature) S PECIMEN SUBMITTEDA: 10 SLIDES ([id number]) CLINICAL DATANone provided.Patient ID #: Date of Report: 11/26/2017Date of Procedure: 11/23/2017Date of Receipt: 11/23/2017Submitted by: ALFREDA PEÑALOZA M.D.Location: Diagnostic interpretation performed at [place] [address]. Normal [facility] Comment on above: Performed By: #### S ####See report for performing lab information. Vital Signs Date Time Vital Sign Value Performing Clinician Facility 02-26-2024 14:32-0400 Body temperature 98.2 [degF] [facility] 02-26-2024 14:32-0400 Body weight 113.39 kg [facility] 02-26-2024 14:32-0400 Diastolic blood pressure 84 mm[Hg] [facility] 02-26-2024 14:32-0400 Heart rate 78 /min [facility] 02-26-2024 14:32-0400 Respiratory rate 20 /min [facility] 02-26-2024 14:32-0400 Systolic blood pressure 158 mm[Hg] [facility] [facility] 10-02-2022 11:00-0500 Body height 167.64 cm Addy Meyers Other [employer] Other 10-02-2022 11:00-0500 Body mass index (BMI) [Ratio] 48.9 kg/m2 Addy Meyers Other [employer] Other 10-02-2022 11:00-0500 Body temperature 98.7 [degF] Addy Meyers Other [facility] Other 10-02-2022 11:00-0500 Body weight 137.44 kg Addy Meyers Other [facility] Other 10-02-2022 11:00-0500 Respiratory rate 20 /min Addy Meyers Other [employer] Other 10-02-2022 11:00-0500 SaO2% (BldA) [Mass fraction] 98 % Addy Meyers Other [facility] Other 05-23-2022 18:45-0400 Body height 167.64 cm Shanelle Coretta Other [employer] Other 05-23-2022 18:45-0400 Body mass index (BMI) [Ratio] 56.49 kg/m2 Shanelle Coretta Other [employer] Other 05-23-2022 18:45-0400 Body temperature 98 [degF] Shanelle Hitchcock Other [employer] Other 05-23-2022 18:45-0400 Body weight 158.76 kg Shanelle Hitchcock Other [employer] Other 05-23-2022 18:45-0400 Respiratory rate 18 /min Shanelle Hitchcock Other [employer] Other 05-23-2022 18:45-0400 SaO2% (BldA) [Mass fraction] 98 % Shanelle Htichcock Other [facility] Other Encounters Encounter Date Encounter Type Care Provider Facility Start: 12-16-2024 End: 12-17-2024 Telephone encounter Elsa Booker DO Work Phone: [facility] Start: 06-25-2024 End: 06-25-2024 ambulatory ELSA BOOKER Not Available Start: 05-22-2024 End: 07-24-2024 External Result Encounter Elsa Booker DO Work Phone: [facility] Unsolicited Start: 05-22-2024 End: 07-24-2024 External Result Encounter Elsa Chantel Booker DO Work Phone: [facility] Unsolicited Start: 02-27-2024 End: 02-27-2024 ambulatory HEYDI IBRAHIM Not Available Start: 02-26-2024 End: 02-26-2024 ambulatory Shanelle Read Facility:[facility] Start: 02-26-2024 End: 02-26-2024 Departed Referred PA-C Shanelle Read Work Phone: [facility] [place] Work Phone: Start: 02-26-2024 End: 02-26-2024 ambulatory [facility] Work Phone: Start: 02-26-2024 End: 02-26-2024 Patient encounter procedure [facility] [place] Work Phone: Start: 10-30-2023 End: 10-30-2023 ambulatory GIOVANNI HUDDLESTON Not Available Start: 10-30-2023 End: 10-30-2023 ambulatory ELSA BOOKER Not Available Start: 05-22-2023 End: 05-22-2023 ambulatory Referral Self Facility:[facility] Start: 11-12-[address] ELSA BOOKER Facil ity:H1 Start: 10-10-2022 End: 10-10-2022 ambulatory Tony Mittal Other [employer] Other Start: 10-10-2022 Telephone encounter Tony Pu[facility] Start: 10-02-2022 End: 10-02-2022 ambulatory Addy Meyers Other [employer] Other Start: 10-02-2022 Office outpatient visit 15 minutes Addy Meyers [facility] Urgent [facility] Start: 05-30-2022 End: 11-11-[address] ELSA BOOKER Facility: Start: 05-23-2022 End: 05-23-2022 ambulatory Shanelle Hitchcock Other [employer] Other Start: 05-23-2022 Office outpatient visit 15 minutes Shanelle Hitchcock [facility] Ur[facility] Start: 07-27-2021 End: 07-27-2021 Subsequent hospital visit by physician [facility] Radiology Ct Scan Comment on above: Ventral hernia witho ut obstruction or gangrene [K43.9] Procedures Date Procedure Procedure Detail Performing Clinician Start: 08-15-2024 Microscopic observation [Identifier] in Cervix by Cyto stain Elsa Booker DO Work Phone: Start: 05-22-2024 Complete blood count with white cell differential, automated Elsa Booker DO Work Phone: Start: 05-22-2024 Comprehensive metabolic panel Elsa Booker DO Work Phone: Start: 05-22-2024 Lipid panel Elsa Booker DO Work Phone: Start: 05-22-2024 MICRONUTRIENT, VITAMIN B1 (THIAMINE), BLOOD Elsa Booker DO Work Phone: Start: 05-22-2024 VITAMIN K Elsa Booker DO Work Phone: Start: 10-30-2023 History of gastrointestinal tract bypass History of Craig-en-Y gastric bypass Elsa Booker DO Work Phone: Start: 05-16-2022 Mammography Elsa Booker DO Work Phone: Start: 07-27-2021 Ct abdomen & pelvis w/o contrast material Ariella Feliberto ENGLISH.CLERK CASHIER Work Phone: Start: 08-23-2020 Colonoscopy Elsa Booker DO Work Phone: Plan of Treatment Date Care Activity Detail Author Start: 08-23-2030 Screening for malignant neoplasm of colon [facility] Start: 08-15-2027 Screening for malignant neoplasm of cervix [facility] Start: 07-13-2024 Influenza vaccination Influenza Vaccine (#1) [facility] Start: 02-26-2024 Bacteria identified in Urine by Culture [facility] Start: 07-13-2023 Covid-19 Vaccine () Covid-19 Vaccine () [facility] Start: 07-13-2023 Influenza vaccination Influenza Vaccine (#1) [facility] Start: 05-16-2023 Screening for malignant neoplasm of breast Mammogram [facility] Start: 11-12-2022 Depression Assessment Depression Assessment [facility] Start: 11-02-2022 Urine microalbumin profile DTaP,Tdap,Td Vaccine (2 - Td or Tdap) [facility] Start: 2016 Shingrix Vaccine (1 of 2) Shingrix Vaccine (1 of 2) [facility] Start: 2011 Cologuard (FIT-DNA) Cologuard (FIT-DNA) [facility] Start: 2011 Colonoscopy Colonoscopy [facility] Start: 2011 Colorectal Cancer Screening Colorectal Cancer Screening [facility] Start: [address] Colonography [facility] Start: 2011 Diabetes Screening Diabetes Screening [facility] Start: 2011 Fecal Occult Blood Fecal Occult Blood [facility] Start: 2011 Lipid 1996 panel - Serum or Plasma Lipid Screening [facility] Start: 2011 Sigmoidoscopy Sigmoidoscopy [facility] Start: 2006 Mammography Mammogram Screening [facility] Start: 1996 HPV Testing HPV Testing [facility] Start: 1996 Screening for malignant neoplasm of cervix [facility] Start: 1987 Pap Testing Pap Testing [facility] Start: 1987 Screening for malignant neoplasm of cervix Pap Smear [facility] Start: 1984 Hepatitis C Screening Hepatitis C Screening [facility] Start: 1984 HIV Screening HIV Screening [facility] Start: 1966 Hepatitis B Vaccine (1 of 3 - 3-dose series) Hepatitis B Vaccine (1 of 3 - 3-dose series) [facility] Start: 1966 Screening for malignant neoplasm of colon [facility] Immunizations Immunization Date Immunization Notes Care Provider Fa tima 07-31-2023 influenza virus vacc ine, unspecified formulation Elsa Booker DO Work Phone: [facility] 09-10-2014 influenza virus vacc ine, unspecified formulation Ct [facility] Payers Date Payer Category Payer Self-pay [id number] 2022 [employer] [facility] Shield BCBS [id number] 2017 Unknown [id number] 1966 Unknown [id number] [id number] 1966 Unknown [id number]. [id number] 1966 Unknown [id number]. 2.1259 1966 Unknown [id number] [id number]. 2.1259 1966 Unknown [id number] 2..[id number]. 2.1259 1966 Unknown [id number] [id number]. [id number] 1958 [place] [id number] Private Health Insurance [facility] e [id number] Private Health Insurance [facility] e [id number] Unknown [id number] [id number] Unknown [id number] [id number] Social History Date Type Detail Facility Start: 07-28-2021 End: 06-25-2024 Sex Assigned At [facility] [employer] Other Tobacco smoking stat [facility] Tobacco smoking consumption unknown [facility] Start: 07-28-2021 End: 06-25-2024 History of Social function [facility] National Score (1-100), lower number is lower risk Not on file [facility] Start: 1965 Sex Assigned At Not on file [facility] Start: 06-23-2021 End: 10-29-2023 Tobacco smoking status DEIS Never smoked tobacco (finding) [facility] Start: 1965 Sex Assigned At Female [facility] Start: 10-29-2023 Tobacco use and exposure Smokeless tobacco non-user [facility] Start: 02-27-2024 End: 06-25-2024 Alcoholic beverage intake Ex-drinker (finding) [facility] How often to you hav e a drink containing alcohol? Monthly or less [facility] How many standard drinks containing alcohol do you have on a typical day? 1 or 2 [facility] How often do you hav e 6 or more drinks on 1 occasion? Never [facility] Clinical Notes 07-27-2021 to 12-16-2024 Telephone Encounter - Amy Stewart - 12/16/2024 9:39 AM ESTTelephone Encounter - Amy Stewart - 12/16/2024 9:39 AM ESTTelephone Encounter - Amy Stewart - 12/16/2024 9:35 AM EST Note Date & Type Note Facility 12-16-2024 Telephone encounter Note Form atting of this note might be different from the original. Signed and faxed [facility] 12-16-2024 Miscellaneous Notes Formattin g of this note might be different from the original. Signed and faxed Got form from up front and put it on Dr Jhony dubon The pt dropped off an Authorization form. I placed it in the IM Slot, thank you documented in this encounter [facility] 12-16-2024 Telephone encounter Note Form atting of this note might be different from the original. Got form from up front and put it on Dr Booker deseva [facility] 12-16-2024 Telephone encounter Note Form atting of this note might be different from the original. The pt dropped off an Authorization form. I placed it in the IM Slot, thank you [facility] 10-10-2022 Evaluation note Encounter Date Diagnosis Assessment Notes Sep, Right sided abdominal pain (ICD-10 - R10.9) [facility] Other 11-21-2022 Evaluation note* Encounter Date Diagnosis [...] She understands and agrees with the plan. [facility] Other 07-12-2022 Evaluation note* Encounter Date Diagnosis [...] Pt understood and agreed to treatment plan. [facility] Other 09-25-2021 NoteHNO ID: [id number] Author: Renan Gates PT Service: ? Author [...] this qualifies as a moderate complexity evaluation, 80703. 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 Author [...] area. She'll let us know how that goes.[facility]09-16-2021 NoteHNO ID: [id number] Author: Shaniqua Montez MD Service: ? Author Type: Resident Type: Progress Notes Filed: 07/28/2021 1:22 PM Note Text: [facility] Abdominal [facility] - HISTORY AND PHYSICAL Chief [...] plan as she currently sees PT in [facility] for back pain. Seen / discussed with Dr. Vargas. Plan: Physical therapy consult placed to exercise abdomen Shaniqua Montez MD General Surgery PGY-1 July 28, 2021 [facility]2021 NoteHNO ID: [id number] Author: RT Ambar(R) Service: ? Author Type: [...] PERIPHERAL IV DATA: Not applicable SIGNED BY: Debora Motley, RT(R) July 27, 2021 12:50 [facility] note* Diagnosis Ventral hernia without obstruction or gangrene Ventral hernia, unspecified, without mention of obstruction or gangrene documented in this encounter [facility] noteNo assessment information availableProm[facility] Work Phone: Evaluation note* Diagnosis Onset Date Resolution Status Dysuria acute [facility] Work Phone: History general Narrative - Reported* [...] History cholecystectomy Surgical History Craig-en-y gastric bypass 2005 Surgical History hernia repair Surgical History adhesions Surgical History wisdom teeth Surgical History cryo to cervix x 2 Surgical History body lift/ extra skin removal Surgical History Hysteroscopy, D&C, Myosure Poly pectomy Dr Wright Surgical History Colonoscopy Surgical History diverticulosis Hospitalization History SEE ABOVE Hospitalization History Chest pain overnight[non cardiac] [facility] Other Summary Purpose Family History Relationship Condition Age at Onset Recorded Date/T coty father Hypertension Unknown Coronary artery disease Unknown Not Specified Hypertension Unknown brother Hypertension Unknown family member Obesity Unknown father Obesity Unknown Heart disease Unknown Hypertension Unknown grandparent Obesity Unknown Advance Directives Advance Directive Response Recorded Date/ Time Advance Directives No October 12:49pm Reason for Referral Specialty Diagnoses / Procedures Referred By Favio t Referred To Contact CT IMAGING Diagnoses Ventral hernia without obstruction or gangrene Procedures CT ABD/PEL WO IVCON CT ABD & PELVIS W/O CONTRAST Ariella Dao, ELECTROSLAG WELDING MACHINE OPERATOR.CLERK CASHIER [address] [place] [address] Ct Imaging [facility] Referral ID Status Reason Start Date Expiration Date V isits Requested Visits Authorized [id number] Closed Auto-Generate d Referral 07/15/2021 08/13/2021 2 2 Chief Complaint and Reason for Visit Chief Complaint possible uti Chief Complaint possible uti Reason for Visit Dysuria Additional Source Comments INFORMATION SOURCE (unrecogn ized section and content) DATE CREATED AUTHOR 05/07/2018 [facility] DATE CREATED AUTHOR AUTHOR'S ORGANIZ ATION [facility] DATE CREATED AUTHOR AUTHOR'S ORGANIZ ATION 01/01/2022 [facility] DATE CREATED AUTHOR AUTHOR'S ORGANIZ ATION 09/04/2022 [facility] dical Specialist DATE CREATED AUTHOR AUTHOR'S ORGANIZ ATION 11/12/2022 [facility] DATE CREATED AUTHOR AUTHOR'S ORGANIZ ATION 03/07/2024 [facility] DATE CREATED AUTHOR AUTHOR'S ORGANIZ ATION 06/30/2024 [facility] dical Specialists EPIC REASON FOR VISIT (unrecogniz ed section and content) Specialty Diagnoses / Procedures Referred By Contac t Referred To Contact CT IMAGING Diagnoses Ventral hernia without obstruction or gangrene Procedures CT ABD/PEL WO IVCON CT ABD & PELVIS W/O CONTRAST Ariella Dao, ELECTROSLAG WELDING MACHINE OPERATOR.CLERK CASHIER [id number] Imaging [place] [address] Referral ID Status Reason Start Date Expiration Date V isits Requested Visits Authorized Closed Auto-Generate d Referral 07/15/2021 08/13/2021 2 2 Source Comments (unrecognize d section and content) In the event this informatio n is protected by the Federal Confidentiality of Alcohol and Drug Abuse Patient Records regulations: The Federal rules restrict any use of the information to criminally investigate or prosecute any alcohol or drug abuse patient.[facility] the event this information is protected by the Federal Confidentiality of Alcohol and Drug Abuse Patient Records regulations: The Federal rules restrict any use of the information to criminally investigate or prosecute any alcohol or drug abuse patient.[facility] Care Teams (unrecognized sec tion and content) Desktop Manager Relationship Specialty Start Date End Date Elsa Booker DO [address] [place] [address] PCP - General 08/05/08 Desktop Manager Relationship Specialty Start Date End Date Elsa Booker DO [address] [place] [address] PCP - General 08/05/08 Team Status: Active [...] February 26, 2024 End: February 26, 2024 Desktop Manager Relationship Specialty Start Date End Date Elsa Booker DO [address] [place] [address] PCP - [employer] 02/10/21 Elsa Booker DO [address] [place] [address] PCP - General Internal Medicine 03/20/23 Desktop Manager Relationship Specialty Start Date End Date Elsa Booker DO [address] [place] [address] PCP - [employer] 02/10/21 Elsa Booker DO [address] [place] [address] PCP - General Internal Medicine 03/20/23 Goals (unrecognized section and content) Goals may [...] BE BASED ON THE PRIMARY CLINICAL RECORDS. [employer] provides no warranty or guarantee of the accuracy or completeness of information in this document.
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
[2025-01-20] MEDS: ONDANSETRON PF 4 MG/2 ML VIAL IV (18:39)
[2025-01-20] MEDS: MORPHINE SULFATE 4 MG/ML VIAL IV (18:39)
[2025-01-20] MEDS: MORPHINE SULFATE 2 MG/ML SYRINGE IV (19:45)
[2025-01-20] MEDS: ORPHENADRINE 60 MG/ 2 ML VIAL IV (19:45)
[2025-01-20 20:11] VITALS: BP 138/82; PULSE 84; O2SAT 98
== END 2025-01-20 20:14 | disposition home or self-care (01) ==
PROVIDERS: Emergency Provider Emergency Medicine; PCP Internal Medicine
DX: S09.90XA Unspecified injury of head, initial encounter (principal); V49.49XA Driver injured in collision with other motor vehicles in traffic accident, initial encounter; M54.50 Low back pain, unspecified
CPT/HCPCS: 70450; 72125; 72131; 96374; 96375; 96376; 99285; J2270; J2360; J2405

== ENCOUNTER 2025-10-31 21:37 | Emergency (ER) | payer BC, SELFPAY ==
--- OUTSIDE RECORDS SUMMARY | 2025-10-20 09:10 | XMS_ITS | Encounter Summary ---
Author Organization [facility] Address [address] [place] [address] Care Team Providers Care Experimental Mechanic Name Role Phone Doron Booker MD Primary Care Provider [phone] Reason for Visit * VzakbjLueczgtfQeelrs-lyQhwfcs-ruPjsdUdhbp Encounter Details DateTypeDepartmentCare Team (Latest Contact Info)Nzerqvpqyvq02/09/2025 9:10 AM ESTFollow-Up [facility] [address] [place] [address] [place] [phone] Efrem Ahn MD [address] [place] [address] Sprain of metacarpophalangeal (MCP) joint of left index finger, initial encounter (Primary Dx) Social History Tobacco UseTypesPacks/DayYears UsedDateSmoking Tobacco: NeverSmokeless Tobacco: Never Comments:NA Alcohol UseStandard Drinks/WeekCommentsNot Currently0 (1 standard drink = 0.6 oz pure alcohol)Social drinker / once a month at mostPHQ-2AnswerDate Recorded Patient Health Questionnaire-2 Ofuyq68112/21/2024CommentsNoSex and Gender InformationValueDate RecordedSex Assigned at IogdyRyqzsp61/30/2025 9:26 AM EDT Legal ZzdIeqomp13/15/2025 9:57 AM EDTGender QizjkiwtYbzpkb40/04/2025 11:00 AM EDTSexual OrientationHeterosexual or Kduwpljz82/30/2025 9:26 AM EDTdocumented as of this encounter Last Filed Vital Signs Vital SignReadingTime TakenCommentsBlood Pressure--Pulse--Temperature-- Respiratory Rate--Oxygen Saturation--Inhaled Oxygen Concentration--Dpvtjg186 kg (295 lb)10/20/2025 9:24 AM YXEKvnmkq060.9 cm (5' 6.5 )10/20/2025 9:24 AM ESTBody Mass Index46.9112/21/2024 9:24 AM ESTdocumented in this encounter Functional Status documented as of this encounter Progress Notes * Tim Car MD - 10/20/2025 9:10 AM EST Images from the original note were not included. Orthopedic Surgery 07/27/2025 Index Mcp Joint Radial Collateral Ligament Repair - Left 10/20/25 Patient states she is making slow but stable progress with OT with BL hands. She is currently working. Endorses occasional knuckle swelling. TF CSI helped with her triggering. 09/08/25 Dilcia Alegre comes in for a post-operative visit after having a left MP joint radial collateral ligament repair done on 07/27/2025. Today she is doing well and has no unexpected complaints. ROM is great, still having pain after prolonged use, however not unexpected given she is only 6 weeks from DOS. Physical Exam: The incision site is healing well. There is no erythema, drainage or signs of infection. Tenderness is mild and localized to the surgical site. Stable L IF MCP with endpoint with stress. Sensation is present to light touch. Range of motion is appropriate for this time. Assessment: Dilcia Alegre is a 59 y.o. year old female with a rupture of the radial collateral ligament of the left index MP joint sp repair. Plan: - Activity as tolerated to work on ROM - continue OT for both hands - fu in 3-4 months Tim Car MD Orthopaedic Surgery PGY-4 [place] 10/20/25 9:30 AM By using the attestations below, the signing clinician agrees that I have read and verify that thedocumentation has been personally reviewed by me and ensure that the documentation accurately reflects the encounter. GC: I personally saw this patient on the day of the encounter, performed the wolfe portion(s) of the service and participated in the management and confirm the resident's documentation. Please note there may be an additional personal documentation from me. Cosigned by Efrem Ahn MD at 10/20/2025 12:56 PM EST documented in this encounter Plan of Treatment DateTypeDepartmentCare Team (Latest Contact Info)Yzzxjjvnfvb01/24/2026 9:30 AM EDTFollow-Up [facility] [address] [place] [address] [place] [address] Efrem Ahn MD [address] [place] [phone] documented as of this encounter Visit Diagnoses Diagnosis Sprain of metacarpophalangeal (MCP) joint of left index finger, initial encounter- Primary documented in this encounter Care Teams Team MemberRelationshipSpecialtyStart DateEnd Date Doron Booker MD [address] [facility] [address] [place] [address] PCP - GeneralInternal Medicine07/27/25documented as of this encounter
--- OUTSIDE RECORDS SUMMARY | 2025-10-23 11:00 | XMS_ITS | Encounter Summary ---
Author Organization [facility] Address [address] [place] [address] Care Team Providers Care Charge Rn Name Role Phone Doron Booker DO Primary Care Provider Man Brenner DO Unavailable [phone] Erin Oshea NP Unavailable Cora Almonte MD Unavailable Doron Booker DO Unavailable [phone] Efrem Ahn MD Unavailable [phone] Reason for Referral * Medications - AuthorizedSpecialtyDiagnoses / ProceduresReferred By Contact Referred To Contact Diagnoses Pain of left great toe Acute gout involving toe of left foot, unspecified cause Deep peroneal neuropathy, right Bryant Dailey DPM [address] [facility] [address] [place] [address] Phone: tel: fax: Referral IDStatusReasonStart DateExpiration DateVisits RequestedVisits [id number]/17/20251/ Encounter Details DateTypeDepartmentCare Team (Latest Contact Info)Dxkuikndgcv82/12/2025 11:00 AM ESTOffice Visit [facility] [address] [facility] 100 [place] [phone] Bryant Dailey, DPM [address] [place] [id number] Deep peroneal neuropathy, right (Primary Dx); Pain of left great toe; Acute gout involving toe of left foot, unspecified cause Social History Tobacco UseTypesPacks/DayYears UsedDateSmoking Tobacco: NeverSmokeless Tobacco: NeverAlcohol UseStandard Drinks/WeekCommentsNot Currently0 (1 standard drink = 0.6 oz pure alcohol)AUDIT-CAnswerDate RecordedQ1: How often do you have a drink containing alcohol?Never06/15/2025Q2: How many drinks containing alcohol do you have on a typical day when you are drinking?Patient does not drink06/15/2025Q3: How often do you have six or more drinks on one occasion?Never06/15/2025PHQ-2 AnswerDate RecordedPatient Health Questionnaire-2 Ckudk52811/29/2024 CommentsUnknownSex and Gender InformationValueDate RecordedSex Assigned at Not on fileLegal HumPyyxhj82/15/2023 6:47 PM EDTGender IdentityNot on fileSexual OrientationNot on fileOccupationIndustryJob Start DateJob End DateBilling at AT&TNot on fileNot on fileNot on filedocumented as of this encounter Plan of Treatment DateTypeDepartmentCare Team (Latest Contact Info)Hfodniggtsj56/29/2026 11:20 AM ESTProcedure Visit [facility] [address], [address] [place] [phone] Man Brenner DO [address] [place] [id number] 01/05/2026 2:30 PM ESTOffice Visit [facility] [address] [place] [phone] Doron Booker, DO [address] [place] [address] documented as of this encounter Visit Diagnoses Diagnosis Deep peroneal neuropathy, right- Primary Pain of left great toe Acute gout involving toe of left foot, unspecified cause documented in this encounter Care Teams Team MemberRelationshipSpecialtyStart DateEnd Date Doron Booker DO [address] [place] [id number] PCP - GeneralInternal Medicine03/20/23 Doron Booker DO [address] [place] [address] [facility] Man Brenner DO [address] [place] [address] Referring PhysicianFamily Medicine03/31/25 Erin Oshea NP [address] [place] [address] Nurse PractitionerInternal Medicine05/25/25 Cora Almonte MD [address] [facility] [address] [place] [address] Referring PhysicianGynecology05/25/25 Efrem Ahn MD [address] [place] [address] Referring PhysicianOrthopaedic Tqjpozc79/18/25documented as of this encounter
--- OUTSIDE RECORDS SUMMARY | 2025-10-29 11:20 | XMS_ITS | Encounter Summary ---
Author Organization [facility] Address [address] [place] [address] Care Team Providers Care Contract Clerk Automobile Name Role Phone Doron Booker DO Primary Care Provider [phone] Man Brenner DO Unavailable [phone] Erin Oshea NP Unavailable Cora Almonte MD Unavailable Doron Booker DO Unavailable [phone] Efrem Ahn MD Unavailable [phone] Reason for Visit * ReasonCommentsOMT Encounter Details DateTypeDepartmentCare Team (Latest Contact Info)Vrhxdcgqrer26/18/2025 11:20 AM ESTProcedure Visit [facility] [address], [facility] [address] [place] [address] Man Brenner DO [address] [facility] [address] [place] [address] Segmental and somatic dysfunction of head region (Primary Dx); Somatic dysfunction of cervical region; Somatic dysfunction of thoracic region; Somatic dysfunction of lumbar region; Somatic dysfunction of sacral region; Somatic dysfunction of pelvis region; Somatic dysfunction of lower extremities; Somatic dysfunction of upper extremities; Rib cage region somatic dysfunction Social History Tobacco UseTypesPacks/DayYears UsedDateSmoking Tobacco: NeverSmokeless [...] on one occasion?Never06/15/2025PHQ-2 AnswerDate RecordedPatient Health Questionnaire-2 Esbkb826 CommentsUnknownSex and Gender InformationValueDate RecordedSex Assigned at Not on fileLegal BrdQvwvgc88/15/2023 6:47 PM EDTGender IdentityNot on fileSexual OrientationNot on fileOccupationIndustryJob Start DateJob End DateBilling at AT&TNot on fileNot on fileNot on filedocumented as of this encounter Last Filed Vital Signs Vital SignReadingTime TakenCommentsBlood Xjjiojmg314/7610/29/2025 11:39 AM EST Ofdtl190910/29/2025 11:39 AM HRQKjqnmwbullx55.3 ??C (97.4 ??F)10/29/2025 11:39 AM ESTRespiratory Vund865912/30/2024 11:39 AM ESTOxygen Dpkpnhiocz68%10/29/2025 11:39 AM ESTInhaled Oxygen Concentration--Jiqumo875 kg (318 lb)10/29/2025 11:39 AM EST Zneych252.6 cm (5' 6 )10/29/2025 11:39 AM ESTBody Mass Index51.33112/30/2024 11:39 AM ESTdocumented in this encounter Functional Status * Over the past 2 weeks, how often have you been bothered by any of the following problems?QuestionAnswerDate of AssessmentAuthorLittle interest or pleasure in doing thingsNot at all10/29/2025 11:36 AM Rahel Balderrama MA Feeling down, depressed, or hopelessNot at all10/29/2025 11:36 AM Rahel Balderrama MAPatient Health Questionnaire-2 Bthla70912/30/2024 11:36 AM Rahel Balderrama MA documented as of this encounter Progress Notes * Man Brenner, DO - 10/29/2025 11:20 AM EST Images from the original note were not included. FAMILY MEDICINE NOTE Chief Complaint: OMT HPI: Patient presents to the office today for OMT with complaints of low back/neck pain. Pain since last OMT visit: remains unchanged. History of Rheumatoid Arthritis: No. See below for surgical history. SUBJECTIVE: Past Medical History SURGICAL/SOCIAL ALLERGIES: Medical History[1] Surgical History[2] Social History[3] Allergies[4] OBJECTIVE: 10/29/2025 11:39 AM 09/29/2025 2:35 PM 09/28/2025 11:20 AM Vitals BMI 51.33 kg/m2 50.36 kg/m2 50.68 kg/m2 BSA (m2) 2.59 m2 2.57 m2 2.57 m2 Systolic 128 138 124 Diastolic 76 80 78 Heart Rate 68 72 60 SpO2 98 % 99 % 98 % Temp 97.4 ??F 97.5 ??F Resp 20 20 Height (in) 5' 6 5' 6 5' 6 Weight (lb) 318 312 314 Visit Report Report Report MSK: Hypertonicity and TART changes in the following regions: cervical: worse on right thoracic: worse on left lumbar: worse on right OBJECTIVE: Dilcia was seen today for omt. Diagnoses and all orders for this visit: Segmental and somatic dysfunction of head region (Primary) Somatic dysfunction of cervical region Somatic dysfunction of thoracic region Somatic dysfunction of lumbar region Somatic dysfunction of sacral region Somatic dysfunction of pelvis region Somatic dysfunction of lower extremities Somatic dysfunction of upper extremities Rib cage region somatic dysfunction Somatic Dysfunction: Patient was educated about the risks and benefits of OMT and verbally consented to the procedure. HVLA was performed to b/l tibiotalar joints with resolution of dysfunction on recheck. Direct inhibition to b/l trapezius muscles with resolution of hyperonicity. MFR was performed to thoracic and lumbar region with good resolution of hypertonicity and tissue texture changes on recheck. Still technique and FPR performed to b/l sacrum, b/l pelvis, and b/l 1st ribs Subocciptial release performed with good resolution of hypertonicity. Articulatory technique of b/l carpal bones. Soft tissue stretches were performed to cervical, thoracic, and lumbar regions with good resolutionof hypertonicity and tissue texture changes on recheck. Patient tolerated the procedure well. Patient was instructed on post OMT care including increasing daily water intake over the next few days. Also advised patient to use OTC pain relievers for any pain/discomfort over the next few days as some is to be expeted after an OMT treatment. Patient reported understanding. Patient's Medications New Prescriptions No medications on file Previous Medications ASCORBIC ACID (VITAMIN C) 1000 MG TABLET Take 1,000 mg by mouth in the morning. ATORVASTATIN (LIPITOR) 40 MG TABLET Take 1 tablet (40 mg) by mouth Daily CHOLECALCIFEROL (VITAMIN D-3) 25 MCG (1000 UT) CAPSULE Take 1,000 Units by mouth Daily COLCHICINE 0.6 MG TABLET Take 1 tablet (0.6 mg) 3 times a day for 1 day then three times a day until pain is gone or GI upset. COLCHICINE 0.6 MG TABLET Take 1 tablet (0.6 mg) 3 times a day until pain is gone, or GI upset. CYANOCOBALAMIN (VITAMIN B-12) 1000 MCG TABLET Take 1,000 mcg by mouth in the morning. CYCLOBENZAPRINE (FLEXERIL) 10 MG TABLET TAKE 1 TABLET BY MOUTH IN THE MORNING AND TAKE 1 TABLET BY MOUTH IN THE EVENING AND 1 TABLET BEFORE BEDTIME ESTRADIOL (ESTRACE) 0.1 MG/GM VAGINAL CREAM Insert into the vagina Daily FERROUS SULFATE 325 (65 FE) MG TABLET Take 325 mg by mouth 1 (one) time each day at the same time INDOMETHACIN (INDOCIN) 50 MG CAPSULE Take one capsule three times a day until symptoms resolve or GI upset. INDOMETHACIN (INDOCIN) 50 MG CAPSULE Take one capsule three times a day until symptoms resolve or GI upset. OXYCODONE-ACETAMINOPHEN (PERCOCET) 5-325 MG TABLET Take 1 tablet by mouth every 6 (six) hours if needed for severe pain for up to 5 days POLYETHYLENE GLYCOL, PEG, 3350 (MIRALAX) 17 GM/SCOOP POWDER as directed Orally PREDNISONE (DELTASONE) 10 MG TABLET Take 1 tablet (10 mg) by mouth in the morning and 1 tablet (10 mg) in the evening and 1 tablet (10 mg) before bedtime. Do all this for 5 days. VALACYCLOVIR (VALTREX) 1 G TABLET Take 500 mg by mouth Daily PRN ZINC GLUCONATE 50 MG TABLET Take 50 mg by mouth 1 (one) time each day at the same time Modified Medications No medications on file Discontinued Medications No medications on file Follow up in about 6 weeks (around 12/10/2025). This note was prepared in part with the assistance of dictation and AI technologies; minor errors or omissions may be present. 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 Circumferential abdominal lift procedure afterward Morbid obesity ([facility]) Osteoarthritis of knees, bilateral Unspecified visual loss Varicose veins of both lower extremities with pain Weight gain following gastric bypass surgery Weight gain after bariatric surgery [2] Past Surgical History: Procedure Laterality Date CHOLECYSTECTOMY 2000 COLONOSCOPY 08/23/2020 Diverticulosis COSMETIC SURGERY 2007 Body lift COSMETIC SURGERY 2012 Body lift/ Extra skin removal (second) GASTRIC BYPASS 2006 GYNECOLOGIC CRYOSURGERY 2009 Cryo to cervix x2 HERNIA REPAIR 2008 HERNIA REPAIR 2013 HYSTEROSCOPY W/ POLYPECTOMY 11/20/2017 Operative hysteroscopy/ D&C/ Myosure polypectomy - Dr. Esteevz OTHER SURGICAL HISTORY Left 07/2025 Left hand surgery WISDOM TOOTH EXTRACTION x4 [3] Social History Tobacco Use Smoking status: Never Smokeless tobacco: Never Substance Use Topics Alcohol use: Not Currently [4] Allergies Allergen Reactions Ibuprofen Other Reaction(s): Unknown Penicillins Hives Other Reaction(s): Unknown documented in this encounter Plan of Treatment DateTypeDepartmentCare Team (Latest Contact Info)Mkpedliacas65/29/2026 11:20 AM ESTProcedure Visit [facility] [address], [address] [place] [phone] Man Brenner DO [address] [place] [address] 01/05/2026 2:30 PM ESTOffice Visit [facility] [address] [place] [address] Doron Booker DO [address] [facility] [address] [place] [address] documented as of this encounter Visit Diagnoses Diagnosis Segmental and somatic dysfunction of head region- Primary Somatic dysfunction of cervical region Nonallopathic lesion of cervical region, not elsewhere classified Somatic dysfunction of thoracic region Nonallopathic lesion of thoracic region, not elsewhere classified Somatic dysfunction of lumbar region Nonallopathic lesion of lumbar region, not elsewhere classified Somatic dysfunction of sacral region Nonallopathic lesion of sacral region, not elsewhere classified Somatic dysfunction of pelvis region Nonallopathic lesion of pelvic region, not elsewhere classified Somatic dysfunction of lower extremities Nonallopathic lesion of lower extremities, not elsewhere classified Somatic dysfunction of upper extremities Nonallopathic lesion of upper extremities, not elsewhere classified Rib cage region somatic dysfunction Nonallopathic lesion of rib cage, not elsewhere classified documented in this encounter Care Teams Team MemberRelationshipSpecialtyStart DateEnd Date Doron Booker DO [address] [facility] [address] [place] [address] PCP - GeneralInternal Medicine03/20/23 Doron Booker DO [address] [facility] [address] [place] [address] [facility] Man Brenner DO [address] [facility] [address] [place] [address] Referring PhysicianFamily Medicine03/31/25 Erin Oshea NP [address] [facility] [address] [place] [address] Nurse PractitionerInternal Medicine05/25/25 Cora Almonte MD [address] [address] Referring PhysicianGynecology05/25/25 Efrem Ahn MD [address] [place] [phone] Referring PhysicianOrthopaedic Opahlii85/18/25documented as of this encounter
--- OUTSIDE RECORDS SUMMARY | 2025-10-30 11:50 | XMS_ITS | Encounter Summary ---
Author Organization [facility] Address [address] [place] [address] Care Team Providers Care Pipeline Controller Name Role Phone Doron Booker DO Primary Care Provider Man Brenner DO Unavailable [phone] Erin Oshea NP Unavailable Cora Almonte MD Unavailable Doron Booker DO Unavailable [phone] Efrem Ahn MD Unavailable [phone] Encounter Details DateTypeDepartmentCare Team (Latest Contact Info)Mftmueciuxu33/19/2025 11:50 AM ESTOffice Visit [facility] [place] [facility] [address] [facility] [address] [place] [address] Bryant Dailey DPM [address] [facility] [address] [place] [address] Pain of left great toe (Primary Dx); Deep peroneal neuropathy, right; Tinea pedis of right foot Social History Tobacco UseTypesPacks/DayYears UsedDateSmoking Tobacco: NeverSmokeless [...] on one occasion?Never06/15/2025PHQ-2 AnswerDate RecordedPatient Health Questionnaire-2 Ajrum83412/30/2024 CommentsUnknownSex and Gender InformationValueDate RecordedSex Assigned at Not on fileLegal UewVpgbxy75/15/2023 6:47 PM EDTGender IdentityNot on file Sexual OrientationNot on fileOccupationIndustryJob Start DateJob End DateBilling at AT&TNot on fileNot on fileNot on filedocumented as of this encounter Plan of Treatment DateTypeDepartmentCare Team (Latest Contact Info)Prbtteuwbjj93/29/2026 11:20 AM ESTProcedure Visit [facility] [address], [address] [place] [address] Man Brenner DO [address] [place] [address] 01/05/2026 2:30 PM ESTOffice Visit [facility] [address] [place] [address] Doron Booker DO [address] [place] [address] documented as of this encounter Visit Diagnoses Diagnosis Pain of left great toe- Primary Deep peroneal neuropathy, right Tinea pedis of right foot documented in this encounter Care Teams Team MemberRelationshipSpecialtyStart DateEnd Date Doron Booker DO [address] [place] [address] PCP - GeneralInternal Medicine03/20/23 Doron Booker DO [address] [place] [address] PCP - [employer]06/12/25 Man Brenner DO [address] [place] [address] Referring PhysicianFamily Medicine03/31/25 Erin Oshea NP [address] [place] [address] Nurse PractitionerInternal Medicine05/25/25 Cora Almonte MD [facility] [address] [place], [place] [phone] Referring PhysicianGynecology05/25/25 Efrem Ahn MD [address] [place] [phone] Referring PhysicianOrthopaedic Kyhhinl27/18/25documented as of this encounter
[2025-10-31 22:00] VITALS: BP 144/78; PULSE 85; TEMP 36.9; O2SAT 97; BMI 47.0
--- NOTE | 2025-10-31 22:17 | ED.EPISTAXI1 ---
HPI - Epistaxis General Chief Complaint: Epistaxis Stated Complaint: Epistaxis Time Seen by Provider: 10/31/25 22:09 Source: patient Mode of arrival: walk-in Limitations: no limitations History of Present Illness HPI Narrative: epistaxis left nostril state she felt something and picked at his nose and it started to bleed. Describes it bleeding heavily. Enroute to the hospital the bleeding stop and has not restarted. No headache Related Data Home Medications ?Medication ?Instructions ?Recorded ?Confirmed cyclobenzaprine 10 mg tablet 10 mg PO Q8H PRN back pain 04/24/24 01/20/25 estradiol 0.01% (0.1 mg/gram) 1 appful vaginal .2 x weekly 04/24/24 01/20/25 vaginal cream Previous Rx's ?Medication ?Instructions ?Recorded oxycodone-acetaminophen 5 mg-325 1 tab PO Q8H PRN pain 4 days #12 01/20/25 mg tablet (Percocet) tabs prednisone 10 mg tablet See Rx Instructions .Route 01/20/25 .COMPLEX #30 tabs Allergies Allergy/AdvReac Type Severity Reaction Status Date / Time Penicillins Allergy Mild Hives Verified 10/31/25 22:00 Review of Systems ROS Status of ROS 10 or more systems reviewed and unremarkable except as noted in history and below PFSH [facility] Social History Little interest or pleasure in doing things: not at all Feeling down, depressed, or hopeless: not at all Exam Constitutional Vital Signs, click to edit/add: Last Vital Signs Temp 98.4 F 10/31/25 22:00 Pulse 85 10/31/25 22:00 Resp 19 10/31/25 22:00 BP 144/78 H 10/31/25 22:00 Pulse Ox 97 10/31/25 22:00 O2 Del Method Room Air 10/31/25 22:00 Common normals: no apparent distress, oriented x3, no limitations, healthy appearing, alert and well nourished [facility] Common normals: normocephalic and head/scalp atraumatic Other: dried blood left nostril. possible bleeder site left septum but not bleeding now Eye Common normals: EOMs intact bilaterally and conjunctivae normal Respiratory Common normals: normal respiratory effort, no retractions, no use of accessory muscles and clear to auscultation bilaterally Extremity Common normals: normal to inspection and full ROM Neuro Common normals: oriented x3, CN's II-XII intact bilaterally, moves all extremities, no focal motor deficits and no sensory deficits noted Psych Appearance: grossly normal Course Vital Signs Vital signs: Vital Signs Temperature 98.4 F 10/31/25 22:00 Pulse Rate 85 10/31/25 22:00 Respiratory Rate 19 10/31/25 22:00 Blood Pressure 144/78 H 10/31/25 22:00 Pulse Oximetry 97 10/31/25 22:00 Oxygen Delivery Method Room Air 10/31/25 22:00 Temperature 98.4 F 10/31/25 22:00 Pulse Rate 85 10/31/25 22:00 Respiratory Rate 19 10/31/25 22:00 Blood Pressure 144/78 H 10/31/25 22:00 Pulse Oximetry 97 10/31/25 22:00 Oxygen Delivery Method Room Air 10/31/25 22:00 MDM - Epistaxis MDM Narrative Medical decision making narrative: presents with acute epistaxis left nostril . started after picking at nose. Has now stop. Discussed with patient and her partner and will be conservative at this time as she is currently asymptomatic and no longer bleeding. Discharged home Discharge Plan Discharge Chief Complaint: Epistaxis Clinical Impression: Epistaxis Patient Disposition: Home, Self-Care Prescriptions / Home Meds: No Action cyclobenzaprine 10 mg tablet 10 mg PO Q8H PRN (Reason: back pain) estradiol 0.01 % (0.1 mg/gram) cream 1 appful VAGINAL .2 x weekly prednisone 10 mg tablet See Rx Instructions .ROUTE .COMPLEX Qty: 30 0RF Rx Instructions: Take 5 tablets on days 1-2, 4 tabs on days 3-4, 3 tabs on days 5-6, 2 tabs on days 7-8, 1 tab on days 9-10. oxycodone-acetaminophen [Percocet] 5-325 mg tablet 1 tab PO Q8H PRN (Reason: pain) 4 Days Qty: 12 0RF Print Language: Kyrgyz Instructions: Nosebleed (ED) Referrals: ELSA THOMASON [Primary Care Provider, Internal Medicine] - 1 week
--- OUTSIDE RECORDS SUMMARY | 2025-10-31 22:24 | XMS_ITS | Encounter Summary ---
Author Organization [facility] Address [address] [place] [address] Care Team Providers Care Hospice Music Therapy Name Role Phone Doron Booker DO Primary Care Provider Man Brenner DO Unavailable [phone] Erin Oshea NP Unavailable Cora Almonte MD Unavailable Doron Booker DO Unavailable [phone] Efrem Ahn MD Unavailable [phone] Encounter Details DateTypeDepartmentCare Team (Latest Contact Info)Nqwcmvshzpq14/19/2025amboo flowsheet [facility] [address] [facility] 100 [place] [address] Bryant Dailey DPM [address] [facility] 100 [place] [address] Social History Tobacco UseTypesPacks/DayYears UsedDateSmoking Tobacco: NeverSmokeless [...] on one occasion?Never06/15/2025PHQ-2 AnswerDate RecordedPatient Health Questionnaire-2 Sdeyy26212/30/2024 CommentsUnknownSex and Gender InformationValueDate RecordedSex Assigned at Not on fileLegal IraFebbvs75/15/2023 6:47 PM EDTGender IdentityNot on fileSexual OrientationNot on fileOccupationIndustryJob Start DateJob End DateBilling at AT&TNot on fileNot on fileNot on filedocumented as of this encounter Plan of Treatment DateTypeDepartmentCare Team (Latest Contact Info)Dcqnjqdyfhi43/29/2026 11:20 AM ESTProcedure Visit [facility] [address], [address] [place] [address] Man Brenner DO [address] [place] [address] 01/05/2026 2:30 PM ESTOffice Visit [facility] [place] [facility] [address] [place] [phone] Doron Booker DO [address] [place] [address] documented as of this encounter Visit Diagnoses Not on filedocumented in this encounter Care Teams Team MemberRelationshipSpecialtyStart DateEnd Date Doron Booker DO [address] [place] [address] PCP - GeneralInternal Medicine03/20/23 Doron Booker DO [address] [place] [address] PCP - [place] [employer]06/12/25 Man Brenner DO [address] [place] [address] Referring PhysicianFamily Medicine03/31/25 Erin Oshea NP [address] [facility] [address] [place] [address] Nurse PractitionerInternal Medicine05/25/25 Cora Almonte MD [address] [facility] 320 [place] [address] Referring PhysicianGynecology05/25/25 Efrem Ahn MD [address] [place] [phone] Referring PhysicianOrthopaedic Mmkhyyp89/18/25documented as of this encounter
--- OUTSIDE RECORDS SUMMARY | 2025-10-31 22:24 | XMS_ITS | Encounter Summary ---
Author Organization [facility] Address [address] [place] [address] Care Team Providers Care Commercial Insulator Name Role Phone Doron Booker DO Primary Care Provider Man Brenner DO Unavailable [phone] Erin Ohsea NP Unavailable Cora Almonte MD Unavailable Doron Booker DO Unavailable [phone] Efrem Ahn MD Unavailable [phone] Encounter Details DateTypeDepartmentCare Team (Latest Contact Info)Eiasyewiuxj49/12/2025Travel Social History Tobacco UseTypesPacks/DayYears UsedDateSmoking Tobacco: NeverSmokeless [...] on one occasion?Never06/15/2025PHQ-2 AnswerDate RecordedPatient Health Questionnaire-2 Fdvlx19911/29/2024 CommentsUnknownSex and Gender InformationValueDate RecordedSex Assigned at Not on fileLegal XykThomsh42/15/2023 6:47 PM EDTGender IdentityNot on fileSexual OrientationNot on fileOccupationIndustryJob Start DateJob End DateBilling at AT&TNot on fileNot on fileNot on filedocumented as of this encounter Plan of Treatment DateTypeDepartmentCare Team (Latest Contact Info)Rjpkcpbcrco51/29/2026 11:20 AM ESTProcedure Visit [facility] [address], [address] [place] [address] Man Brenner DO [address] [place] [address] 01/05/2026 2:30 PM ESTOffice Visit [facility] [address] [place] [phone] Doron Booker DO [address] [place] [address] documented as of this encounter Visit Diagnoses Not on filedocumented in this encounter Care Teams Team MemberRelationshipSpecialtyStart DateEnd Date Doron Booker DO [address] [place] [address] PCP - GeneralInternal Medicine03/20/23 Doron Booker DO [address] [place] [address] PCP - [place] [employer]06/12/25 Man Brenner DO [address] [place] [address] Referring PhysicianFamily Medicine03/31/25 Erin Oshea NP [address] [place] [address] Nurse PractitionerInternal Medicine05/25/25 Cora Almonte MD [facility] [place] [phone] Referring PhysicianGynecology05/25/25 Efrem Ahn MD [address] [place] [phone] Referring PhysicianOrthopaedic Skqocey67/18/25documented as of this encounter
--- OUTSIDE RECORDS SUMMARY | 2025-10-31 22:24 | XMS_ITS | Encounter Summary ---
Author Organization [facility] Address [address] [facility] [place] [address] Care Team Providers Care Pharmacy Specialist Name Role Phone Doron Booker DO Primary Care Provider Man Brenner DO Unavailable [phone] Erin Oshea NP Unavailable Cora Almonte MD Unavailable Doron Booker DO Unavailable [phone] Efrem Ahn MD Unavailable [phone] Encounter Details DateTypeDepartmentCare Team (Latest Contact Info)Xajpemqcsbr62/06/2025Telephone [facility] [address] [facility] 100 [place] [address] Bryant Dailey DPM [address] [facility] 100 [place] [address] Social History Tobacco UseTypesPacks/DayYears UsedDateSmoking Tobacco: NeverSmokeless [...] on one occasion?Never06/15/2025PHQ-2 AnswerDate RecordedPatient Health Questionnaire-2 Kknpo89111/29/2024 CommentsUnknownSex and Gender InformationValueDate RecordedSex Assigned at Not on fileLegal JroLzpflh05/15/2023 6:47 PM EDTGender IdentityNot on fileSexual OrientationNot on fileOccupationIndustryJob Start DateJob End DateBilling at AT&TNot on fileNot on fileNot on filedocumented as of this encounter Miscellaneous Notes * Telephone Encounter - Ariella Bautista - 10/17/2025 7:[address] Dailey: I'll call. Thanks * Telephone Encounter - Ariella Bautista - 10/17/2025 10:33 AM EST Pt is calling because she is having very bad pain in her right big toe. She states last night it felt like someone held a blow torch to her toe. She tried lidocaine cream. She is still having pain, but she states that it feels more tolerable when she is standing. She states Dr. Dailey has told her that it could be gout and was going to try a medrol dose shan and colchicine. She is wondering if shecan get some help this weekend. Call back number is [phone]. Uses [facility] in [place] documented in this encounter Plan of Treatment DateTypeDepartmentCare Team (Latest Contact Info)Jwgtclkmdao32/29/2026 11:20 AM ESTProcedure Visit [facility] [address] [place] [phone] Man Brenner, [address] [place] [address] 01/05/2026 2:30 PM ESTOffice Visit [facility] [place] [facility] [address] [place] [address] Doron Booker DO [address] [place] [address] documented as of this encounter Visit Diagnoses Diagnosis Acute gout involving toe of left foot, unspecified cause- Primary Pain of left great toe documented in this encounter Care Teams Team MemberRelationshipSpecialtyStart DateEnd Date Doron Booker DO [address] [place] [address] PCP - GeneralInternal Medicine03/20/23 Doron Booker DO [address] [place] [address] PCP - [place] [facility]06/12/25 Man Brenner DO [address] [place] [address] Referring PhysicianFamily Medicine03/31/25 Erin Oshea NP [address] [place] [address] Nurse PractitionerInternal Medicine05/25/25 Cora Almonte MD [address] [facility] [address] [place] [address] Referring PhysicianGynecology05/25/25 Efrem Ahn MD [address] [place], [place] [address] [phone] Referring PhysicianOrthopaedic Sumffko19/18/25documented as of this encounter
--- OUTSIDE RECORDS SUMMARY | 2025-10-31 22:24 | XMS_ITS | Encounter Summary ---
Author Organization [facility] Address [address] [place] [address] Care Team Providers Care Engineering Lecturer Name Role Phone Doron Booker DO Primary Care Provider [phone] Man Brenner DO Unavailable [phone] Erin Oshea NP Unavailable Cora Almonte MD Unavailable Doron Bokoer DO Unavailable [phone] Efrem Ahn MD Unavailable [phone] Encounter Details DateTypeDepartmentCare Team (Latest Contact Info)Pgqztzunjia89/17/2025Travel Social History Tobacco UseTypesPacks/DayYears UsedDateSmoking Tobacco: NeverSmokeless [...] on one occasion?Never06/15/2025PHQ-2 AnswerDate RecordedPatient Health Questionnaire-2 Vrfxu50812/30/2024 CommentsUnknownSex and Gender InformationValueDate RecordedSex Assigned at Not on fileLegal IjqQnylbj78/15/2023 6:47 PM EDTGender IdentityNot on fileSexual OrientationNot on fileOccupationIndustryJob Start DateJob End DateBilling at AT&TNot on fileNot on fileNot on filedocumented as of this encounter Plan of Treatment DateTypeDepartmentCare Team (Latest Contact Info)Fdrdztrjcle87/29/2026 11:20 AM ESTProcedure Visit [facility] [address], [address] [place] [address] Man Brenner DO [address] [place] [address] 01/05/2026 2:30 PM ESTOffice Visit [facility] [address] [place] [phone] Doron Booker DO [address] [place] [address] documented as of this encounter Visit Diagnoses Not on filedocumented in this encounter Care Teams Team MemberRelationshipSpecialtyStart DateEnd Date Doron Booker DO [address] [place] [address] PCP - GeneralInternal Medicine03/20/23 Doron Booker DO [address] [place] [address] PCP - [place] [employer]06/12/25 Man Brenner DO [address] [place] [address] Referring PhysicianFamily Medicine03/31/25 Erin Oshea NP [address] [place] [address] Nurse PractitionerInternal Medicine05/25/25 Cora Almonte MD [facility] [place] [phone] Referring PhysicianGynecology05/25/25 Efrem Ahn MD [address] [place] [phone] Referring PhysicianOrthopaedic Admcqzf29/18/25documented as of this encounter
--- OUTSIDE RECORDS SUMMARY | 2025-10-31 22:24 | XMS_ITS | Encounter Summary ---
Author Organization [facility] Address [address] [place] [address] Care Team Providers Care Variety Saw Operator Name Role Phone Doron Booker DO Primary Care Provider Man Brenner DO Unavailable [phone] Erin Oshea NP Unavailable Cora Almonte MD Unavailable Doron Booker DO Unavailable [phone] Efrem Ahn MD Unavailable Encounter Details DateTypeDepartmentCare Team (Latest Contact Info)Vifmsdikmvt82/19/2025Travel Social History Tobacco UseTypesPacks/DayYears UsedDateSmoking Tobacco: NeverSmokeless [...] on one occasion?Never06/15/2025PHQ-2 AnswerDate RecordedPatient Health Questionnaire-2 Qolhz56612/30/2024 CommentsUnknownSex and Gender InformationValueDate RecordedSex Assigned at Not on fileLegal DkzBlqaxz52/15/2023 6:47 PM EDTGender IdentityNot on fileSexual OrientationNot on fileOccupationIndustryJob Start DateJob End DateBilling at AT&TNot on fileNot on fileNot on filedocumented as of this encounter Plan of Treatment DateTypeDepartmentCare Team (Latest Contact Info)Mjpfjpnzkkz58/29/2026 11:20 AM ESTProcedure Visit [facility] [address], [address] [place] [address] Man Brenner DO [address] [place] [address] 01/05/2026 2:30 PM ESTOffice Visit [facility] [address] [place] [address] Doron Booker DO [address] [place] [address] documented as of this encounter Visit Diagnoses Not on filedocumented in this encounter Care Teams Team MemberRelationshipSpecialtyStart DateEnd Date Doron Booker DO [address] [place] [address] PCP - GeneralInternal Medicine03/20/23 Doron Booker DO [address] [place] [address] PCP - [place] [employer]06/12/25 Man Brenner DO [address] [place] [address] Referring PhysicianFamily Medicine03/31/25 Erin Oshea NP [address] [place] [address] Nurse PractitionerInternal Medicine05/25/25 Cora Almonte MD [facility] [place] [phone] Referring PhysicianGynecology05/25/25 Efrem Ahn MD [address] [place] [phone] Referring PhysicianOrthopaedic Yoajxam31/18/25documented as of this encounter
--- OUTSIDE RECORDS SUMMARY | 2025-10-31 22:24 | XMS_ITS | Encounter Summary ---
Author Organization [facility] Address [address] [place] [address] Care Team Providers Care Surgery Technician Name Role Phone Doron Booker DO Primary Care Provider Man Brenner DO Unavailable [phone] Erin Oshea NP Unavailable Cora Almonte MD Unavailable Doron Booker DO Unavailable Efrem Ahn MD Unavailable [phone] Encounter Details DateTypeDepartmentCare Team (Latest Contact Info)Qrnxebxcrre84/12/2025amboo flowsheet [facility] [address] [facility] 100 [place] [address] Bryant Dailey DPM [address] [facility] 100 [place] [address] Social History Tobacco UseTypesPacks/DayYears UsedDateSmoking Tobacco: NeverSmokeless [...] on one occasion?Never06/15/2025PHQ-2 AnswerDate RecordedPatient Health Questionnaire-2 Lrpoa20211/29/2024 CommentsUnknownSex and Gender InformationValueDate RecordedSex Assigned at Not on fileLegal IywTbsfzz59/15/2023 6:47 PM EDTGender IdentityNot on fileSexual OrientationNot on fileOccupationIndustryJob Start DateJob End DateBilling at AT&TNot on fileNot on fileNot on filedocumented as of this encounter Plan of Treatment DateTypeDepartmentCare Team (Latest Contact Info)Gvxndztgiew65/29/2026 11:20 AM ESTProcedure Visit [facility] [address], [address] [place] [phone] Man Brenner DO [address] [place] [address] 01/05/2026 2:30 PM ESTOffice Visit [facility] [place] [facility] [address] [place] [phone] Doron Booker DO [address] [place] [address] documented as of this encounter Visit Diagnoses Not on filedocumented in this encounter Care Teams Team MemberRelationshipSpecialtyStart DateEnd Date Doron Booker DO [address] [place] [address] PCP - GeneralInternal Medicine03/20/23 Doron Booker DO [address] [place] [address] PCP - [place] [employer]06/12/25 Man Brenner DO [address] [place] [address] Referring PhysicianFamily Medicine03/31/25 Erin Oshea NP [address] [facility] 230 [place] [address] Nurse PractitionerInternal Medicine05/25/25 Cora Almonte MD [address] [facility] [address] [place] [address] Referring PhysicianGynecology05/25/25 Efrem Ahn MD [address] [place] [phone] Referring PhysicianOrthopaedic Xcgvdpw93/18/25documented as of this encounter
--- OUTSIDE RECORDS SUMMARY | 2025-10-31 22:25 | XMS_ITS | Clinical Summary ---
Author Organization [facility] Address [id number] [place] [address] Care Team Providers Care Baker Test Name Role Phone Doron Booker DO Primary Care Provider Social History Tobacco UseTypesPacks/DayYears UsedDateSmoking Tobacco: Never AssessedChildcare AnswerDate VzpjobnkWlnaoqnryPsvzufo82/12/2019EmploymentAnswerDate Recorded PdtyhmjlktZjptlzs39/12/2019CommentsUnknownSex and Gender Information ValueDate RecordedSex Assigned at BirthNot on fileLegal PohTnrqoj77/06/2015 12:11 PM EDTGender IdentityNot on fileSexual OrientationNot on file Last Filed Vital Signs Vital SignReadingTime TakenCommentsBlood Hjtoknfq067/8006 9:51 AM EDT Pulse--Temperature--Respiratory Rate--Oxygen Saturation--Inhaled Oxygen Concentration--Xeyzff463 kg (280 lb)04/12/2015 9:51 AM JYIJpsvvq876 cm (5' 8.5 ) 04/12/2015 9:51 AM EDTBody Mass Index41.95004/12/2015 9:51 AM EDT Plan of Treatment Health MaintenanceDue DateLast DoneCommentsDepression Ofmxhdzzq69/21/1978Tobacco Jwepmowmb70/21/1978Adult BMI Uodpfkldl98/21/1984DTaP,Tdap and Td Vaccines (1 - Tdap)1985Pap Smear1987Zoster (Shingles) Vaccine (1 of 2)2016 Influenza Toyjrad1607/13/2025 Medical Devices Not on file Insurance Care Teams Team MemberRelationshipSpecialtyStart DateEnd Date Doron Booker DO [address] [place] [address] PCP - Bwpfzxu53/27/13
--- OUTSIDE RECORDS SUMMARY | 2025-10-31 22:25 | XMS_ITS | Clinical Summary ---
Author Organization [facility] Address [address] [place] [address] Phone Care Team Providers Care Spray Maker Name Role Phone Doron Booker DO Primary Care Provider Encounters DateTypeDepartmentCare UptqOybrnahgsje74/28/2025Transcribe Orders [facility] [address] [place] [address] Erin Oshea, RADIOLOGICAL TECHNOLOGIST-PHOTOGRAPHY AND PRINTS CURATOR Metabolic syndrome (Primary Dx); Hyperlipidemia, unspecifiedfrom Last 3 Months Social History Tobacco UseTypesPacks/DayYears UsedDateSmoking Tobacco: Never Assessed CommentsUnknownSex and Gender InformationValueDate RecordedSex Assigned at Not on fileLegal McjOcxxry81/26/2022 6:20 AM ESTGender IdentityNot on fileSexual OrientationNot on file Plan of Treatment Not on file Care Teams Team MemberRelationshipSpecialtyStart DateEnd Date Doron Booker DO PCP - General08/07/20
--- OUTSIDE RECORDS SUMMARY | 2025-10-31 22:25 | XMS_ITS | Clinical Summary ---
Author Organization [facility] Address [address] [place] [address] Care Team Providers Care Security System Sales Consultant Name Role Phone Doron Booker DO Primary Care Provider Allergies Active AllergyReactionsCriticalityNoted QjnhCxkxxdmgLnmjrwhmiztQsmds97/02/2008 Medications MedicationSigDispense QuantityRefillsLast FilledStart DateEnd DateStatus amitriptyline (ELAVIL) 25 mg tablet 07/15/2021ctive dicyclomine (BENTYL) 20 mg tablet 06/09/2021ctive gabapentin (NEURONTIN) 300 mg capsule 06/09/2021ctive traMADol (ULTRAM) 50 mg tablet 07/05/2021ctive cyclobenzaprine (FLEXERIL) 10 mg tablet 05/09/2021ctive Active Problems ProblemNoted DateDiagnosed DateGeneralized abdominal pain08/06/2021Obesity, Class II, BMI 35-39.9007/28/2021 Social History Tobacco UseTypesPacks/DayYears UsedDateSmoking Tobacco: NeverSmokeless Tobacco: NeverArea Deprivation IndexAnswerDate RecordedNational Score (1-100), lower number is lower riskNot on file07/27/2021tate Score (1-10), lower number is lower riskNot on file07/27/2021ata from: https://www.neighborhoodatlas.medicine.[facility].edu/. Last address used for calculationNot on 07/27/2021CommentsUnknownSex and Gender InformationValueDate RecordedSex Assigned at BirthNot on fileLegal SexFemale 10/13/2012 10:01 AM ESTGender IdentityNot on fileSexual OrientationNot on file Last Filed Vital Signs Vital SignReadingTime TakenCommentsBlood Rnibpfea483/6509 10:08 AM EDT patient states she was nervous during dvnuzLabei0249/16/2021 10:08 AM EDT Qarspgtyyxb82.4 ??C (97.6 ??F)07/28/2021 10:08 AM EDTRespiratory Cgfx80708/06/2021 11:00 AM EDTOxygen Drumzrpkur81%10/16/2008 8:00 AM ESTInhaled Oxygen Concentration--Pkujor718.8 kg (242 lb)07/28/2021 10:08 AM YYDZdukzn229.6 cm (5' 6 )07/28/2021 10:08 AM EDTBody Mass Index39.0607/28/2021 10:08 AM EDT Plan of Treatment Health MaintenanceDue DateLast DoneCommentsAnxiety Fnonpptkq76/21/1984Depression Qwzssvujo84/21/1984HIV Cjxsqofuc63/21/1984Hepatitis C Gsvyacpdu53/21/1984 Hepatitis B Vaccine (1 of 3 - 19+ 3-dose series)1985Cervical Cancer Udqhpwmsz35/21/1987Mammogram Hynkbinhj40/21/2006CT Cusgtrrvimax27/21/2011 Cologuard (FIT-DNA)11/01/20111878Qrdvgwmnohi66/21/2011Colorectal Cancer Screening 2011Diabetes Ngwupdfgm68Fecal Occult Blood2011 Lipid Ysuiahjtr41/21/9995Ssxatrgquzwsy70/21/2011Pneumococcal Vaccine: 50+ (1 of 1 - PCV)2016Shingrix Vaccine (1 of 2)2016DTaP,Tdap,Td Vaccine (2 - Td or Tdap)Covid-19 Vaccine (3 - 2024- season)2025 02/19/2021, 01/29/2021Influenza Vaccine (#1)RSV Vaccine (1 - 1-dose 75+ series)2041 Procedures Procedure NamePriorityDate/TimeAssociated DiagnosisCommentsBASIC METABOLIC PANEL Lhaunrz6209/14/2008 11:45 AM EST from Last 3 Months or Most Recently Relevant to Health Maintenance Results * (ABNORMAL) BASIC METABOLIC PNL (09/14/2008 11:45 AM EST)ComponentValueRef RangeTest MethodAnalysis TimePerformed AtPathologist SkmvclejbTpkoeid0821 - 100 MG/DLH[facility]ST OGURUJMWUCDDR274 - 25 MG/DLHILLCREST LABORATORYCreatinine 0.5(L)0.7 - 1.4 MG/DLHILLCREST LABORATORYComment: Creatinine = ? 0.5mg/dl Patient GFR estimate = > 60 ml/min/1.73sq.m non- female > 60 ml/min/1.73sq.m female Average GFR for 40-49 yr age group: 99 ml/min/1.73sq.m From National Kidney Disease Education Program (www.nkdep.nih.gov) Dshviz407390 - 148 mmol/LH[facility] LABORATORYPotassium3.93.5 - 5.0 mmol/L [facility] RJVRNJFRHWVickyfsn13201 - 110 mmol/[facility] PQAGWBAPGFHW81879 - 32 mmol/LH[facility] LABORATORYAnion Gap85 - 15 MEQ/LH[facility] LABORATORYBUN/Creat Ratio24(H)7 - 20[facility] LABORATORYCalcium9.68.5 - 10.5 MG/DLHILLCREST LABORATORYSpecimen (Source)Anatomical Location / LateralityCollection Method / VolumeCollection TimeReceived TimeBlood specimen (specimen)BLOOD SPECIMEN / Emgtfii2009/14/2008 11:45 AM EST09/14/2008 12:36 PM EST Narrative Authorizing ProviderResult TypeResult StatusEdgardo Claros MDLABORATORYFinal ResultPerforming OrganizationAddressCity/State/ZIP CodePhone Number [facility] [address] [place] [address] from Last 3 Months or Most Recently Relevant to Health Maintenance Insurance Care Teams Team MemberRelationshipSpecialtyStart DateEnd Date Doron Booker DO [address] [place] [address] [facility] - [facility]08/05/08
--- OUTSIDE RECORDS SUMMARY | 2025-10-31 22:25 | XMS_ITS | Clinical Summary ---
Author Organization [facility] Address [address] [facility], [address] [place] [address] Care Team Providers Care Gelatin Powder Mixer Name Role Phone Doron Booker DO Primary Care Provider + [phone] Allergies Active AllergyReactionsCriticalityNoted DateCommentsIbuprofenOther (See Comments)02/26/20245233NaseiauafmmQjmqa24/21/2024 Medications MedicationSigDispense QuantityRefillsLast FilledStart DateEnd DateStatus cyclobenzaprine (FLEXERIL) 10 MG tablet Take 1 tablet by mouth Daily08/31/2024ctive zinc gluconate 50 MG tablet Take 1 tablet by mouth dailyActive gabapentin (NEURONTIN) 300 MG capsule Take 1 capsule by mouth 3 times daily.Active vitamin D 50 MCG (2000 UT) CAPS capsule Take 1 capsule by mouth dailyActive vitamin C (ASCORBIC ACID) 500 MG tablet Take 1 tablet by mouth dailyActive ferrous sulfate (IRON 325) 325 (65 Fe) MG tablet Take 1 tablet by mouth daily (with breakfast)Active vitamin B-12 (CYANOCOBALAMIN) 1000 MCG tablet Take 1 tablet by mouth dailyActive Multiple Vitamins-Minerals (THERAPEUTIC MULTIVITAMIN-MINERALS) tablet Take 1 tablet by mouth dailyActive Semaglutide, 1 MG/DOSE, 2 MG/1.5ML SOPN Inject into the skinActive estradiol (ESTRACE VAGINAL) 0.1 MG/GM vaginal cream Indications:Atrophic vaginitisPlace 1 g vaginally Twice a Week 42.5 g 5Active Active Problems ProblemNoted DateDiagnosed DateASCUS of cervix with negative high risk HPV 04/10/2025 Family History Medical HistoryRelationNameCommentsHeart DiseaseBrother 1Elevated LipidsFather Heart DiseaseFatherElevated LipidsMotherHeart DiseaseMotherHigh Blood Pressure MotherUterine CancerPaternal Aunt 1Uterine CancerPaternal Aunt 2Colon Cancer Paternal GrandfatherUterine CancerPaternal GrandmotherRelationNameStatusComments Brother 1AliveBrother 2AliveFatherAliveMotherAlivePaternal Aunt 1AlivePaternal Aunt 2AlivePaternal GrandfatherAlivePaternal GrandmotherDeceased Social History Tobacco UseTypesPacks/DayYears UsedDateSmoking Tobacco: NeverSmokeless Tobacco: Never Tobacco Cessation:Counseling Given: Not Answered Alcohol UseStandard Drinks/WeekCommentsYes0 (1 standard drink = 0.6 oz pure alcohol)socialCommentsNoSex and Gender InformationValueDate RecordedSex Assigned at BirthNot on fileLegal SbzKurvmr51/10/2013 10:15 AM ESTGender IdentityNot on fileSexual OrientationNot on file Last Filed Vital Signs Vital SignReadingTime TakenCommentsBlood Ztqiutxz080/8005 11:28 AM EDT Yblvq9236/30/2025 11:28 AM JVJDqcahgoeifv85.3 ??C (97.4 ??F)04/10/2025 11:28 AM EDTRespiratory Ktvd345912/07/2023 2:41 PM ESTOxygen Sqnnbdnysc31%04/10/2025 11:28 AM EDTInhaled Oxygen Concentration--Lckqzf985.1 kg (289 lb)04/10/2025 11:28 AM TBFOlkwob695.7 cm (5' 8 )04/10/2025 11:28 AM EDTBody Mass Index43.9404/10/2025 11:28 AM EDT Plan of Treatment Health MaintenanceDue DateLast DoneCommentsDepression Qirowh0911/01/1978HIV screen 1981Hepatitis C kovpmn0511/01/1984Hepatitis B vaccine (1 of 3 - 19+ 3-dose series)1985Diabetes cxqwce9711/01/20014432Iibjqo70/21/7143Hjleqetoqkx22/21/2011 Colorectal Cancer Rdktcz8611/01/2011FIT/FOBT: Average risk2011Fecal-DNA (Cologuard): Average risk2011Sigmoidoscopy/CT yqsjkgvsvgww25/21/2011 Pneumococcal 50+ years Vaccine (1 of 1 - PCV)2016Shingles vaccine (1 of 2) 2016DTaP/Tdap/Td vaccine (2 - Td or Tdap)reast cancer /03/2022, 11/25/2018, 11/25/2018, Additional history existsFlu vaccine (#1)509/, 09/05/2022, 09/10/2014COVID-19 Vaccine ( season)/, 11/25/2021, 02/19/2021, Additional history existsPap smear8004/10/2025, 11/15/2023, Cervical cancer orfwyw3704/10/2030HPV (without or with Pap)Hepatitis A vaccine Aged OutNo longer eligible based on patient's age to complete this topicHib vaccineAged OutNo longer eligible based on patient's age to complete this topic Meningococcal (ACWY) vaccineAged OutNo longer eligible based on patient's age to complete this topicMeningococcal B vaccineAged OutNo longer eligible based on patient's age to complete this topicPolio vaccineAged OutNo longer eligible based on patient's age to complete this topic Procedures Procedure NamePriorityDate/TimeAssociated DiagnosisCommentsHUMAN PAPILLOMAVIRUS (HPV) DNA PROBE THIN PREP HIGH LZHSIptnegt10/30/2025 12:00 AM EDT [employer] IDJQLSNORrwymgh73/30/2025 12:00 AM EDT from Last 3 Months or Most Recently Relevant to Health Maintenance Results * Human papillomavirus (HPV) DNA probe thin prep high risk (04/10/2025 12:00 AM EDT)ComponentValueRef RangeTest MethodAnalysis TimePerformed AtPathologist SignatureSpecimen DescriptionCERVICAL RSHFRVNK56/30/2025 12:00 AM EDTMERCY LABORATORIESHPV Sample.THIN PREP04/10/2025 12:00 AM GlassbeamHPV, Genotype 16Not DetectedNot Wyrhrium52/30/2025 12:00 AM [facility] HPV, Genotype 18Not DetectedNot Ujdtxrww42/30/2025 12:00 AM GlassbeamHPV, High Risk OtherNot DetectedNot Ukoyscdg18/30/2025 12:00 AM GlassbeamHPV, Nuqvfzplhxlbkm24/30/2025 12:00 AM GlassbeamComment: This test amplifies and detects DNA of 14 high-risk HPV types associated with cervical cancer and its precursor lesions (HPV types 16,18, 31, 33, 35, 39, 45, 51, 52, 56, 58, 59, 66, and 68). ? Sensitivity may be affected by specimen collection methods, stage of infection, and the presence of interfering substances. Results should be interpreted in conjunction with other available laboratory and clinical data. A negative high-risk HPV result does not exclude the possibility of future cytologic HSIL or underlying CIN2-3 or cancer. ? This test is intended for medical purposes only and is not valid for the evaluation of suspected sexual abuse or for other forensic purposes. Specimen (Source)Anatomical Location / LateralityCollection Method / Volume Collection TimeReceived TimeCERVICAL RNVLAVQI35/30/2025 Narrative Authorizing ProviderResult TypeResult StatusCora Almonte METAL BONDING HELPER - CNPHEMATOLOGY ORDERABLESFinal ResultPerforming OrganizationAddressCity/State/[place] [address], [facility] [phone] * [employer] Cytology (04/10/2025 12:00 AM EDT)ComponentValueRef RangeTest Method Analysis TimePerformed AtPathologist SignatureCytology ReportPath Number: [id number] DIAGNOSIS Imaged ThinPrep Pap - Cervical (1 monolayer slide): Specimen Adequacy: ? Satisfactory for evaluation. ? -Endocervical/transformation zone component is absent. Descriptive Diagnosis: ? Negative for intraepithelial lesion or malignancy. Comments: ? Specimen was screened at [facility], [address] [place] [address] [employer] Screener: ??CS Electronically Signed Out VIKTORIA Munguia(ASCP) cs/04/18/2025 Procedure/Addendum HPV Procedure Report ? Date Ordered: ? 04/13/2025 ? Status: Signed Out ? Date Complete: ? 04/14/2025 ? By: System Interface ? Date Reported: ? 04/14/2025 ? Sample: ??HPV Type 16 ?Result: ?? Not Detected ?Ref Range: Not Detected Sample: ??HPV Type 18 ?Result: ?? Not Detected ?Ref Range: Not Detected Sample: ??Other High Risk HPV ?Result: ?? Not Detected ?Ref Range: Not Detected Sample: ??HPV Interp ?Result: ? Ref Range: This test amplifies and detects DNA of 14 high-risk HPV types associated with cervical cancer and its precursor lesions (HPV types 16,18, 31, 33, 35, 39, 45, 51, 52, 56, 58, 59, 66, and 68). ? Sensitivity may be affected by specimen collection methods, stage of infection, and the presence of interfering substances. Results should be interpreted in conjunction with other available laboratory and clinical data. A negative high-risk HPV result does not exclude the possibility of future cytologic HSIL or underlying CIN2-3 or cancer. ? This test is intended for medical purposes only and is not valid for the evaluation of suspected sexual abuse or for other forensic purposes. Performed at [facility], [address] [place] [address] ??[phone]. ?? 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, [address] [facility] [address], [place] [address] This Pap Test has been evaluated with the assistance of the [employer].cnPrep Pap Test Imaging System. The Pap smear is a screening test primarily for squamous epithelial lesions, which is subject to both false negative and false positive results. Your patient should be reminded to consult you immediately if she experiences any suspicious signs or symptoms, regardless of her Pap smear result. GYNECOLOGIC CYTOLOGY REPORT Patient Name: COMFORT TEAGUEIE [facility] Rec: [id number] [facility] ??LABORATORIES CONSULTING PATHOLOGISTS [employer] ANATOMIC PATHOLOGY [address] [facility]. ??[place], [place] [address] [facility] eParachuteSpecimen (Source)Anatomical Location / LateralityCollection Method / VolumeCollection TimeReceived Time CERVICAL WYNUNZSK97/12/2024 7:13 AM EDT Narrative Authorizing ProviderResult TypeResult StatusCora Almonte METAL BONDING HELPER - SUPERVISOR PHOTOENGRAVING PATHOLOGY/CYTOLOGY ORDERABLESFinal ResultPerforming OrganizationAddress City/State/ZIP CodePhone Number [phone] [place] [address] [facility] [employer]ute from Last 3 Months or Most Recently Relevant to Health Maintenance Insurance Care Teams Team MemberRelationshipSpecialtyStart DateEnd Date Doron Booker DO [facility] [address] [facility] [address] [place] [address] PCP - GeneralPage Hospitalnal Fltfsrmx79/25/24
--- OUTSIDE RECORDS SUMMARY | 2025-10-31 22:25 | XMS_ITS | Clinical Summary ---
Author Organization [facility] Address [address] [place] [address] Care Team Providers Care Risk Tech Name Role Phone Doron Booker MD Primary Care Provider + [phone] Allergies Active AllergyReactionsCriticalityNoted AvlbBhiajnstItvdqtrzzBgcqmUqb06/19/2023 Other Reaction(s): Unknown IdnixwywrgvBtsxfHog17/02/2008 Other Reaction(s): Unknown Medications MedicationSigDispense QuantityRefillsLast FilledStart DateEnd DateStatus cholecalciferol, vitamin D3, (VITAMIN D3 ORAL) Take by mouth.Active cyclobenzaprine (Flexeril) 10 mg tablet Take 10 mg by mouth if needed in the morning, at noon, and at bedtime for muscle spasms.Active multivitamin tablet Take 1 tablet by mouth in the morning.Active ascorbic acid (VITAMIN C ORAL) Take by mouth.Active ferrous sulfate (IRON ORAL) Take by mouth.Active CALCIUM ORAL Take by mouth.Active docosahexaenoic acid/epa (FISH OIL ORAL) Take by mouth.Active geriatric multivitamins-minerals 0.5-0.6-7-0.7 mg elixir Take 5 mL by mouth in the morning.Active zinc methionine sulfate/copper (ZINC BALANCE ORAL) Take by mouth.Active cyanocobalamin (Vitamin B-12) 1,000 mcg tablet Take 1,000 mcg by mouth in the morning.Active naloxone (Narcan) 4 mg/0.1 mL nasal spray Indications:Acute postoperative painAdminister 1 spray (4 mg) into affected nostril(s) if needed for opioid reversal. May repeat every 2-3 minutes if needed, alternating nostrils, until medical assistance becomes available. 2 each ctive Active Problems ProblemNoted DateDiagnosed DateChronic pain of left thumb06/23/2025 Encounters DateTypeDepartmentCare WjrlUkkxokasfpy89/09/2025 9:10 AM ESTFollow-Up [address] [place] [address] Efrem Ahn MD Sprain of metacarpophalangeal (MCP) joint of left index finger, initial encounter (Primary Dx)09/10/2025[address] [place] [address] Rik Candelaria MA 09/09/2025Orders Only [address] [place] [address] Rik Candelaria MA 09/08/2025 8:50 AM EDTFollow-Up [address] [place] [address] Efrem Ahn MD Sprain of metacarpophalangeal (MCP) joint of left index finger, initial encounter (Primary Dx); Trigger finger of all digits of right hand09/08/2025Telephone [address] [place] [address] Tyesha Mckinney MA Letter for School/Work08/20/[address] [place] [address] Rik Candelaria MA 08/12/2025Telephone [address] [place] [address] Ayo Alcocer MA 08/12/2025Refill [address] [place] [address] Ayo Alcocer MA Acute postoperative pain08/11/2025 9:30 AM EDTOffice Visit [address] [place] [address] Efrem Ahn MD Sprain of metacarpophalangeal (MCP) joint of left index finger, initial encounter (Primary Dx)from Last 3 Months Family History Medical HistoryRelationNameCommentsCancerMaternal GrandfatherFrank Parvin RelationNameStatusCommentsMaternal GrandfatherFrank BorchardtAlive Social History Tobacco UseTypesPacks/DayYears UsedDateSmoking Tobacco: NeverSmokeless Tobacco: Never Comments:NA Alcohol UseStandard Drinks/WeekCommentsNot Currently0 (1 standard drink = 0.6 oz pure alcohol)Social drinker / [facility] a month at [facility]-2AnswerDate Recorded Patient Health Questionnaire-2 Qwgso76112/21/2024CommentsNoSex and Gender InformationValueDate RecordedSex Assigned at LtjinDtrbqe67/30/2025 9:26 AM EDT Legal KugJcnsra38/15/2025 9:57 AM EDTGender VnjsuphoMrblqc63/04/2025 11:00 AM EDTSexual OrientationHeterosexual or Hyfceljc79/30/2025 9:26 AM EDT Last Filed Vital Signs Vital SignReadingTime TakenCommentsBlood Cwismmza388/48007/27/2025 10:19 AM EDT taken on right arm instead of mfeGnbse9495/15/2025 10:15 AM WROOlputerzddy16.5 ??C (97.7 ??F)07/27/2025 9:40 AM EDTRespiratory Tovb615907/27/2025 10:15 AM EDT Oxygen Cxkvyhpdbt20%07/27/2025 10:15 AM EDTInhaled Oxygen Concentration--Weight 134 kg (295 lb)10/20/2025 9:24 AM BJHLsrakr660.9 cm (5' 6.5 )10/20/2025 9:24 AM ESTBody Mass Index46.912 9:24 AM EST Plan of Treatment DateTypeDepartmentCare Team (Latest Contact Info)Jowvazzqldp15/24/2026 9:30 AM EDTFollow-Up [facility] [address] [place] [address] [place] [phone] Efrem Ahn MD [address] [place] [address] Health MaintenanceDue DateLast DoneCommentsCT Jodsndjbwzxu1966FIT-DNA 1966FIT1966FOBT1966 4203Qcphcnyetyufc1966Hepatitis B Vaccines (1 of 3 - 19+ 3-dose series)1985Zoster Vaccines (1 of 2)2016Adult Rniinkt60COVID-19 Vaccine ( season)2025 10/29/2022, 10/29/2022, 11/25/2021, Additional history existsDepression Jicoyfrcc49/09/597420/07/20256173Zuvqwayhc24/04/428243/02/2025Pap Smear04/10/2028 04/10/2025ervical Cancer Vyptgfypz29/30/2030HPV/Ccyqoq72/30// Giflzxmpdkr17/12/244764/10/2020Colorectal Cancer Khjfinqfm32/12/2030Influenza FjctzudRojtrvsbp29/18/2025, 07/31/2023, 09/05/2022, Additional history existsHIB VaccinesAged OutNo longer eligible based on patient's age to complete this topic HPV VaccinesAged OutNo longer eligible based on patient's age to complete this topicIPV VaccinesAged OutNo longer eligible based on patient's age to complete this topicMeningococcal B VaccineAged OutNo longer eligible based on patient's age to complete this topicMeningococcal VaccineAged OutNo longer eligible based on patient's age to complete this topicPneumococcal Vaccine: Pediatrics (0 to 5 Years) and At-Risk Patients (6 to 64 Years)Aged OutNo longer eligible based on patient's age to complete this topicRotavirus VaccinesAged OutNo longer eligible based on patient's age to complete this topic Medical Devices ImplantedTypeAreaManufacturerDevice IdentifierShelf Expiration DateModel / Serial / LotHand/Wrist Internal Brace Implanted:Qty: 1 on 07/27/2025 by [facility]: Index FingerARTHREX [id number] / / [id number] Insurance * Guarantor: Dilcia AlegreAccount TypeRelation to PatientDate of BirthPhone Billing AddressPersonal/KglerrOfqx1965 [address] [id number] Care Teams Team MemberRelationshipSpecialtyStart DateEnd Date Doron Booker MD [address] [facility] [address] [place] [address] PCP - GeneralInternal Medicine07/27/25
--- OUTSIDE RECORDS SUMMARY | 2025-10-31 22:25 | XMS_ITS | Clinical Summary ---
Author Organization [facility] Address [address] [place] [address] Care Team Providers Care Sinker Puller Name Role Phone Doron Booker DO Primary Care Provider Man Brenner DO Unavailable [phone] Erin Oshea NP Unavailable Cora Almonte MD Unavailable Doron Booker DO Unavailable Efrem Ahn MD Unavailable [phone] Allergies Active AllergyReactionsCriticalityNoted EdfdCnbqkuztTjxnatweaKjh13/19/2023 Other Reaction(s): Unknown QotqpmvdyyxWibowHnw43/02/2008 Other Reaction(s): Unknown Medications MedicationSigDispense QuantityRefillsLast FilledStart DateEnd DateStatus Ascorbic Acid (vitamin C) 1000 MG tablet Take 1,000 mg by mouth in the morning.Active cyanocobalamin (Vitamin B-12) 1000 MCG tablet Take 1,000 mcg by mouth in the morning.Active ferrous sulfate 325 (65 Fe) MG tablet Take 325 mg by mouth 1 (one) time each day at the same timeActive polyethylene glycol, PEG, 3350 (MiraLax) 17 GM/SCOOP powder as directed OrallyActive zinc gluconate 50 MG tablet Take 50 mg by mouth 1 (one) time each day at the same timeActive valACYclovir (Valtrex) 1 g tablet Take 500 mg by mouth Daily PRNActive estradiol (Estrace) 0.1 MG/GM vaginal cream Insert into the vagina Daily10/08/2023ctive cholecalciferol (Vitamin D-3) 25 MCG (1000 UT) capsule Take 1,000 Units by mouth DailyActive cyclobenzaprine (Flexeril) 10 MG tablet Indications:Lumbar degenerative disc diseaseTAKE 1 TABLET BY MOUTH IN THE MORNING AND TAKE 1 TABLET BY MOUTH IN THE EVENING AND 1 TABLET BEFOREBEDTIME 90 tablet 5Active atorvastatin (Lipitor) 40 MG tablet Indications:Pure hypercholesterolemiaTake 1 tablet (40 mg) by mouth Daily 90 tablet ctive Additional Information Patient not taking.Reported on 10/29/2025 indomethacin (Indocin) 50 MG capsule Indications:Pain of left great toe,Acute gout involving toe of left foot, unspecified causeTake one capsule three times a day until symptoms resolve or GI upset. 21 capsule 5Active colchicine 0.6 MG tablet Indications:Pain of left great toe,Acute gout involving toe of left foot, unspecified causeTake 1 tablet (0.6 mg) 3 times a day for 1 day then three times a day until pain is gone or GI upset. 21 tablet ctive colchicine 0.6 MG tablet Indications:Pain of left great toe,Acute gout involving toe of left foot, unspecified causeTake 1 tablet (0.6 mg) 3 times a day until pain is gone, or GI upset. 21 tablet ctive indomethacin (Indocin) 50 MG capsule Indications:Pain of left great toe,Acute gout involving toe of left foot, unspecified causeTake one capsule three times a day until symptoms resolve or GI upset. 15 capsule 5Active gabapentin (Neurontin) 300 MG capsule Indications:Pain of left great toe,Deep peroneal neuropathy, rightTake 1 capsule (300 mg) by mouth in the morning and 1 capsule (300 mg) at noon and 1 capsule (300 mg) in the evening and 1 capsule (300 mg) before bedtime. Take 1 tablet q.I.d. p.o. 120 capsule ctive oxyCODONE-acetaminophen (Percocet) 5-325 MG tablet Indications:Pain of left great toe,Deep peroneal neuropathy, rightTake 1 tablet by mouth every 4 (four) hours if needed for severe pain 30 tablet 5Active ciclopirox (Loprox) 0.77 % cream Indications:Tinea pedis of right footApply 1 application topically in the morning and 1 application before bedtime. 90 g /761627/6Active cyclobenzaprine (Flexeril) 10 MG tablet Indications:Lumbar degenerative disc diseaseTake 1 tablet (10 mg) by mouth in the morning and 1 tablet (10 mg) in the evening and 1 tablet (10 mg) before bedtime. 90 tablet /Discontinued triamcinolone (Kenalog) 0.1 % cream Indications:Other eczemaApply 1 application topically in the morning and 1 application before bedtime. Do all this for 7 days. Apply to rash on right hand. 15 g /Expired oxyCODONE-acetaminophen (Percocet) 5-325 MG tablet Indications:Pain and swelling of toe of right footTake 1 tablet by mouth every 6 (six) hours if needed for severe pain for up to 5 days 20 tablet /Expired doxycycline (Vibra-Tabs) 100 MG tablet Indications:Cellulitis of toe of right footTake 1 tablet (100 mg) by mouth in the morning and 1 tablet (100 mg) before bedtime. Do all this for 10 days. Take with a full glass of water and do not lie down for at least 30 minutes after. 20 tablet /Expired oxyCODONE-acetaminophen (Percocet) 5-325 MG tablet Indications:Pain and swelling of toe of right foot,Left foot painTake 1 tablet by mouth every 6 (six) hours if needed for severe pain for up to 5 days 20 tablet Expired predniSONE (Deltasone) 10 MG tablet Indications:Pain of left great toe,Acute gout involving toe of left foot, unspecified causeTake 1 tablet (10 mg) by mouth in the morning and 1 tablet (10 mg) in the evening and 1 tablet (10 mg) before bedtime. Do all this for 5 days. 15 tablet Expired oxyCODONE-acetaminophen (Percocet) 5-325 MG tablet Indications:Pain of left great toe,Acute gout involving toe of left foot, unspecified cause,Deep peroneal neuropathy, rightTake 1 tablet by mouth every 6 (six) hours if needed for severe pain for up to 5 days 20 tablet Expired Active Problems ProblemNoted DateDiagnosed DateAbdominal aortic ubevojilrysoxfw46/14/2024 Atrophic kpgshukxj99/19/5413Wfncncdykgeprb95/19/2023Lumbar degenerative disc fyivokb8910/30/2023Morbid (severe) obesity due to excess sgxslgyd03/19/2023rimary osteoarthritis of right knee10/30/2023Varicose veins of both lower extremities with pain10/30/2023History of Craig-en-Y gastric nilbtg2410/30/2023 Overview (06/25/2024): History of Craig-en-Y gastric bypass - Z98.84, Pre surgery 409# After surgery 175# then regain to 285# then weight loss with diet/exercise to 175# Resolved Problems ProblemNoted DateDiagnosed DateResolved DateSomatic sqymmfyeffg81/21/2025 10/11/2025ody mass index (BMI) 40.0-44.9, adult/ Fkmopwbjoivbui07/19/202303/Metabolic sryywrjy75 Encounters DateTypeDepartmentCare IrfrDsowapirggv95/19/2025 11:50 AM ESTOffice Visit [facility] [address] [place] [phone] Bryant Dailey DPM Pain of left great toe (Primary Dx); Deep peroneal neuropathy, right; Tinea pedis of right foot10/30/2025amboo flowsheet [facility] [address] [place] [phone] Bryant Dailey DPM 10/30/20257936Owpwne62/18/2025 11:20 AM ESTProcedure Visit [facility] [address], [address] [place] [address] Man Brenner DO Segmental and somatic dysfunction of head region (Primary Dx); Somatic dysfunction of cervical region; Somatic dysfunction of thoracic region; Somatic dysfunction of lumbar region; Somatic dysfunction of sacral region; Somatic dysfunction of pelvis region; Somatic dysfunction of lower extremities; Somatic dysfunction of upper extremities; Rib cage region somatic czdgocxehsm94/17/7679Lprqsl39/12/2025 11:00 AM ESTOffice Visit [facility] [address] [place] [address] Bryant Dailey, DPM Deep peroneal neuropathy, right (Primary Dx); Pain of left great toe; Acute gout involving toe of left foot, unspecified cause10/23/2025amboo flowsheet [facility] [place] [facility] [address] [place] [address] Bryant Dailey, CHIDI 10/23/20254916Lznvjx90/06/2025Telephone [facility] [place] [facility] [address] [place] [address] Bryant Dailey DPNemo 10/13/2025 4:00 PM ESTOffice Visit [facility] [address] [place] [address] Bryant Dailey, DPM Cellulitis of toe of right foot; Pain and swelling of toe of right foot; Abscess of great toe of right foot; Subcutaneous mass of toe of right foot; History of gastric bypass; Left foot pain; Pain of left great toe10/13/2025Results Follow-Up [facility] [address] [place] [address] Wardavid, Erin, DRAPERY AND UPHOLSTERY ESTIMATOR Hepatic function panel10/13/2025amboo flowsheet [facility] [place] [facility] [address] [place] [phone] Byrant Dailey, CHIDI 10/13/20257904Rukdls63/24/2025Telephone [facility] [facility] [address] [place] [address] Leobardo Waleska, RT. R Infection wxasau1710/03/2025Refill [facility] [facility] [address] [place] [address] Erin Oshea, DRAPERY AND UPHOLSTERY ESTIMATOR Lumbar degenerative disc dfwqpxg9410/01/2025 4:00 PM ESTOffice Visit [facility] [place] [facility] [address] [place] [address] Bryant Dailey, DPM Cellulitis of toe of right foot10/01/2025 11:30 AM ESTAncillary Procedure [facility] [address] [place] [address] Pain in right toe(s) (Primary Dx); Other specified soft tissue disorders; Localized swelling, mass and lump, right lower limb10/01/2025Telephone [facility] [address] [place] [address] Bryant Dailey, DPM Iron pills with ltkebypcty25/20/2025Telephone [facility] [place] [facility] [address] [place] [phone] Erin Oshea DRAPERY AND UPHOLSTERY ESTIMATOR 10/01/2025Results Follow-Up [facility] [address] [place] [address] Bryant Dailey, DPNemo MR foot right w and wo IV mxmksuqs19/20/4681Qqtvtq59/20/2025Telephone [facility] [address] [place] [address] Bryant Dailey, DPNemo 09/30/2025 10:15 AM ESTOffice Visit [facility] [address] [place] [phone] Bryatn Dailey, DPM Abscess of great toe of right foot (Primary Dx); Pain and swelling of toe of right foot; Subcutaneous mass of toe of right foot; History of gastric htxfci6009/30/2025Telephone [facility] [address] [facility] [address] [place] [address] Waleska Booth RTJed R MRI njqojrud69/19/8629Jokfsy55/18/2025 2:30 PM ESTOffice Visit [facility] [address] [facility] [address] [place] [address] Erin Oshea NP Adult general medical examination (Primary Dx); Person consulting for explanation of examination or test finding; Need for immunization against influenza; Hypervitaminosis A; Pain and swelling of toe, right; Other eczema; Pure bwnwdfqmztzlzeqlsrvq52/18/9342Hfiswu56/17/2025 11:20 AM ESTProcedure Visit [facility] [address] [facility] [address] [place] [address] Man Brenner DO Segmental and somatic dysfunction of head region (Primary Dx); Somatic dysfunction of cervical region; Somatic dysfunction of thoracic region; Somatic dysfunction of lumbar region; Somatic dysfunction of sacral region; Somatic dysfunction of pelvis region; Somatic dysfunction of lower extremities; Somatic dysfunction of upper extremities; Rib cage region somatic urkgfakvbso19/13/2025Orders Only [facility] External Department Unsolicited Erin Oshea NP 09/23/2025Telephone [facility] [address] [facility] [address] [place] [address] Castillo Chapa MA 09/17/2025 10:30 AM ESTOffice Visit [facility] [address] [facility] [address] [place] [address] Erlinda Guevara NP Pain and swelling of toe, right (Primary Dx); Abscess or cellulitis of toe, right09/17/2025amboo flowsheet [facility] [address] [place] [address] Erlinda Guevara NP 09/17/202500[address]Jagitm35/29/2025 1:00 PM EDTProcedure Visit [facility] [address] [place] [address] Man Brenner DO Somatic dysfunction of head region (Primary Dx); Somatic dysfunction of cervical region; Somatic dysfunction of thoracic region; Somatic dysfunction of lumbar region; Somatic dysfunction of sacral region; Somatic dysfunction of pelvis region; Somatic dysfunction of lower extremity; Somatic dysfunction of upper extremity; Somatic dysfunction of rib cage region; Lumbar paraspinal muscle spasm09/08/2025Telephone [facility] [address] [place] [address] Man Brenner DO 09/01/2025 11:40 AM EDTProcedure Visit [facility] [address] [place] [address] Man Brenner DO Somatic dysfunction of other region (Primary Dx)from Last 3 Months Immunizations ImmunizationAdministration DatesNext DueInfluenza, Madin Jazzy Canine Kidney, subunit, trivalent, injectable, contains zlwemeeanpru26/18/2025Influenza, injectable, MDCK, preservative free, jswrynjkofoq71/25/2022Influenza, injectable, quadrivalent, preservative free07/31/2023Influenza, seasonal, intradermal, preservative free09/10/2014Pfizer Purple Cap SARS-CoV-2 Vaccination 10/29/2022,02/19/2021Tdap101/03/2012 Family History Medical HistoryRelationNameCommentsHyperlipidemiaBrother 1DavidHypertension Brother 1DavidHypertensionBrother 2GeorgeHeart attackFatherGeorgeHyperlipidemia FatherGeorgeCervical cancerFather's SisterColon cancerMaternal Grandfather HyperlipidemiaMotherPeggyHypertensionMotherPeggyObesityMotherPeggyCancerMother's SisterOvarian cancerPaternal GrandmotherRelationNameStatusCommentsBrother 1David Brother 2GeorgeFatherGeorgeFather's SisterMaternal GrandfatherMotherPeggy Mother's SisterPaternal Grandmother Social History Tobacco UseTypesPacks/DayYears UsedDateSmoking Tobacco: NeverSmokeless Tobacco: Never Tobacco Cessation:Counseling Given: Yes Alcohol UseStandard Drinks/WeekCommentsNot Currently0 (1 standard drink = 0.6 oz pure alcohol)AUDIT-CAnswerDate RecordedQ1: How often do you have a drink containing alcohol?Never06/15/2025Q2: How many drinks containing alcohol do you have on a typical day when you are drinking?Patient does not drink06/15/2025Q3: How often do you have six or more drinks on one occasion?Never06/15/2025PHQ-2 AnswerDate RecordedPatient Health Questionnaire-2 Xtoar511 CommentsUnknownSex and Gender InformationValueDate RecordedSex Assigned at Not on fileLegal CkpYrkzxu40/15/2023 6:47 PM EDTGender IdentityNot on fileSexual OrientationNot on fileOccupationIndustryJob Start DateJob End DateBilling at AT&TNot on fileNot on fileNot on file Last Filed Vital Signs Vital SignReadingTime TakenCommentsBlood Cihbslaz455/7610/29/2025 11:39 AM EST Busfh020910/29/2025 11:39 AM ELYFpzizjnxtjy18.3 ??C (97.4 ??F)10/29/2025 11:39 AM ESTRespiratory Tlpb4753 11:39 AM ESTOxygen Bazmqzfwka68%10/29/2025 11:39 AM ESTInhaled Oxygen Concentration--Yzezkw123 kg (318 lb)10/29/2025 11:39 AM EST Gdlxsw214.6 cm (5' 6 )10/29/2025 11:39 AM ESTBody Mass Index51.33112/30/2024 11:39 AM EST Plan of Treatment DateTypeDepartmentCare Team (Latest Contact Info)Gnvtsaykdhi38/29/2026 11:20 AM ESTProcedure Visit [facility] [address], [address] [place] [phone] Man Brenner, DO [address] [place] [address] 01/05/2026 2:30 PM ESTOffice Visit [facility] [address] [place] [phone] Doron Booker, DO [address] [place], [place] [phone] Health MaintenanceDue DateLast DoneCommentsCT Osfbmnitqnwg1966FIT-DNA 1966FIT1966FOBT1966 1457Htoziquuzyppw54/21/1535Acwiayout01/04/2026 04/15/2025, 05/16/2022, 11/25/2018, Additional history existsPap Smear04/10/2028 04/10/2025, 04/10/2025, 4Cervical Cancer Rbvgawzba73/30/2030HPV/Cotest , 9729Omtbbjmpulb59Colorectal Cancer Utdcihdeh68/12/2030COVID-19 DsmgfceYmrtfrhcwwye18/18/2022, 10/29/2022, 11/25/2021, Additional history existsInfluenza PftqedvHoswzknqr51/18/2025, 07/31/2023, 09/05/2022, Additional history existsPneumococcal Vaccine: Pediatrics (0 to 5 Years) and At-Risk Patients (6 to 64 Years)Aged OutNo longer eligible based on patient's age to complete this topic Procedures Procedure NamePriorityDate/TimeAssociated DiagnosisCommentsMR FOOT RIGHT W AND WO IV RNGYDKLKPDFZ90/20/2025 12:15 PM EST Pain and swelling of toe of right foot Abscess of great toe of right foot Subcutaneous mass of toe of right foot XR FOOT 3+ VIEWS MMQFEPlrooah26/19/2025 11:52 AM EST Pain and swelling of toe of right foot HEPATIC FUNCTION XJRCBUtbvyud34/18/2025 4:22 PM EST Hypervitaminosis A SPECIMEN STATUS TYMKCCEjnxver80/13/2025 7:26 AM EST INHGNQURWzblziv70/13/2025 7:26 AM EST OBCIXMYKncqvzq90/13/2025 7:26 AM EST VEHMKCHUYOmrnqfg11/13/2025 7:26 AM EST VITAMIN D65Gwrxcmp90/13/2025 7:26 AM EST VITAMIN D 25 HYDROXY KZYAXClyfdcf81/13/2025 7:26 AM EST VITAMIN A (RETINOL)Uzepggv9009/24/2025 7:26 AM EST IRON AND TOTAL IRON BINDING PHWHAJLHNwrvlnw08/13/2025 7:26 AM EST LIPID GELYUQdzcbqh70/13/2025 7:26 AM EST BASIC METABOLIC AIYPCCnqgszc73/13/2025 7:26 AM EST CBC (INCLUDES DIFF/PLT)Ozcbdby7909/24/2025 7:26 AM EST URIC KAMEXddvmof41/13/2025 7:25 AM EST Pain and swelling of toe, right C-REACTIVE BCYITSKAiijwem96/13/2025 7:25 AM EST Pain and swelling of toe, right SED RATE BY MODIFIED BOUDWPXTCDHgxpwzw42/13/2025 7:25 AM EST Pain and swelling of toe, right BI MAMMOGRAM SCREENING TOMOSYNTHESIS OXJPXYDSCDnszajb07/04/2025 5:22 PM EDT Screening mammogram for breast cancer DTZBTHMSNRGNpzissr32/12/2020 12:00 PM EDT from Last 3 Months or Most Recently Relevant to Health Maintenance Results * MR foot right w and wo IV contrast (10/01/2025 12:15 PM EST)Anatomical Region LateralityModalityLower Extremities, FootRightMagnetic ResonanceSpecimen (Source)Anatomical Location / LateralityCollection Method / VolumeCollection TimeReceived Time10/01/2025 1:02 PM EST Impressions 10/01/2025 1:12 PM EST No evidence for osteomyelitis. No well-defined loculated collection. Tenosynovitis involving the flexor hallucis longus tendon sheath. Other findings as discussed. ELECTRONICALLY SIGNED BY: Man Damon MD Narrative 10/01/2025 1:12 PM EST EXAM/TECHNIQUE: MR FOOT RIGHT W AND WO IV CONTRAST HISTORY: Great toe pain along the plantar surface. No injury. COMPARISON: None RESULT: Bone Marrow: No evidence of fracture, osteomyelitis or marrow-replacing lesion. ?? Subcutaneous Tissues: Areas of subcutaneous edema, especially dorsally and along the plantar aspectof the great toe. No well-defined loculated collection. Joints: Mild to moderate degenerative changes first MTP joint. Degenerative changes within the midfoot, especially at the calcaneocuboid joint and talonavicular joint with subchondral cystic change. Tendons: Visualized tendons appear grossly intact. There is increased fluid involving the majority of the imaged flexor hallucis longus tendon sheath, tracking back to the knot of Benedicto, suggestive of tenosynovitis. Plantar Plates: Plantar plates are intact-appearing. Intermetatarsal Spaces: No evidence of Montes De Oca's neuroma. Intermetatarsal bursitis in the first interspace. Lisfranc Ligament: Intact. Plantar Aponeurosis: Visualized portions of the plantar aponeurosis within normal limits. Muscles: Muscle bulk and signal intensity are within normal limits. Other: No other significant abnormality Procedure Note Man Damon MD - 10/01/2025 EXAM/TECHNIQUE: MR FOOT RIGHT W AND WO IV CONTRAST HISTORY: Great toe pain along the plantar surface. No injury. COMPARISON: None RESULT: Bone Marrow: No evidence of fracture, osteomyelitis or marrow-replacinglesion. Subcutaneous Tissues: Areas of subcutaneous edema, especially dorsally andalong the plantar aspect of the great toe. No well-defined loculatedcollection. Joints: Mild to moderate degenerative changes first MTP joint.Degenerative changes within the midfoot, especially at the calcaneocuboidjoint and talonavicular joint with subchondral cystic change. Tendons: Visualized tendons appear grossly intact. There is increasedfluid involving the majority of the imaged flexor hallucis longus tendonsheath, tracking back to the knot of Benedicto, suggestive of tenosynovitis. Plantar Plates: Plantar plates are intact-appearing. Intermetatarsal Spaces: No evidence of Montes De Oca's neuroma. Intermetatarsalbursitis in the first interspace. Lisfranc Ligament: Intact. Plantar Aponeurosis: Visualized portions of the plantar aponeurosis withinnormal limits. Muscles: Muscle bulk and signal intensity are within normal limits. Other: No other significant abnormality IMPRESSION: No evidence for osteomyelitis. No well-defined loculated collection. Tenosynovitis involving the flexor hallucis longus tendon sheath. Other findings as discussed. ELECTRONICALLY SIGNED BY: Man Damon MD Authorizing ProviderResult TypeResult StatusEutulsa center for [facility] – [place] Lucie Dailey [facility] MRI PROCEDURESFinal Result * XR foot 3+ views right (09/30/2025 11:52 AM EST)Anatomical RegionLaterality ModalityLower Extremities, FootRightRadiographic ImagingSpecimen (Source) Anatomical Location / LateralityCollection Method / VolumeCollection Time Received Time Narrative 09/30/2025 11:52 AM EST Imaging Result: 09-30-2025: Right foot x-ray, weightbearing AP/MO/LAT views, obtained today shows: ?? No signs of osseous pathology to area of concern right hallux. ??No visible sign of infection, osteomyelitis, gas, foreign body, periosteal reaction tumor stress fracture or fracture. ??Soft tissue swelling noted to the plantar hallux right. Small distal subungual exostosis right hallux noted. Authorizing ProviderResult TypeResult StatusEutulsa center for behavioral health – [place] Lucie Dailey DPMIMG XR PROCEDURES Final Result * Hepatic function panel (09/29/2025 4:22 PM EST)ComponentValueRef RangeTest MethodAnalysis TimePerformed AtPathologist SignatureProtein Total6.76.0 - 8.5 g/dLLABCORPAlbumin4.33.8 - 4.9 g/dLLABCORPBili Total0.30.0 - 1.2 mg/dLLABCORP Bilirubin, Direct0.080.00 - 0.40 mg/dLLABCORPAlk Ubtwwfiomvy76127 - 135 IU/L DMQISEIZDN997 - 40 IU/SOFGEVQCLHH199 - 32 IU/LLABCORPSpecimen (Source) Anatomical Location / LateralityCollection Method / VolumeCollection Time Received TimeBloodVenous blood specimen / Zwzxeui3309/29/2025 4:22 PM EST 09/29/2025 Narrative [facility] - 09/30/2025 8:08 AM EST Performed at: [address] - [address] ??[id number] Diagnostic Technologist: Roger Bullock PhD, Phone: ??[phone] Authorizing ProviderResult TypeResult StatusAmy Warchol NPLAB BLOOD ORDERABLES Final ResultPerforming OrganizationAddressCity/State/ZIP CodePhone Number [facility] * Specimen Status Report (09/24/2025 7:26 AM EST)ComponentValueRef RangeTest MethodAnalysis TimePerformed AtPathologist SignatureSPECIMEN STATUS REPORT CommentLABCORPComment: Ambig Abbrev BMP8 Default Ambig Abbrev BMP8 Default A hand-written panel/profile was received from your office. In accordance with the [employer] Ambiguous Test Code Policy dated May 2003, we have completed your order by using the closest currently or formerly recognized AMA panel. ??We have assigned Basic Metabolic Panel (8), Test Code #289799 to this request. If this is not the testing you wished to receive on this specimen, please contact the [facility] Client Inquiry/Technical Services Department to clarify the test order. ??We appreciate your business. Ambig Abbrev LP Default Ambig Abbrev LP Default A hand-written panel/profile was received from your office. In accordance with the [facility] Ambiguous Test Code Policy dated May 2003, we have completed your order by using the closest currently or formerly recognized AMA panel. ??We have assigned Lipid Panel, Test Code #379203 to this request. If this is not the testing you wished to receive on this specimen, please contact the [facility] Client Inquiry/Technical Services Department to clarify the test order. ??We appreciate your business. Specimen (Source)Anatomical Location / LateralityCollection Method / Volume Collection TimeReceived Time09/24/2025 7:26 AM EST09/24/2025 Narrative [facility] - 09/27/2025 11:06 AM EST Performed at: - [place] [address] [facility], [address], [place], [place] ??[id number] Diagnostic Technologist: Karina Ledezma MD, Phone: ??[phone] Authorizing ProviderResult TypeResult StatusH[facility] MD LingoLAB BLOOD ORDERABLES Final ResultPerforming OrganizationAddressCity/State/ZIP CodePhone Number [facility] * Iron and TIBC (09/24/2025 7:26 AM EST)ComponentValueRef RangeTest Method Analysis TimePerformed AtPathologist SignatureIron Bind.Cap.(TIBC)347332 - 450 ug/gNDPTKKTXCQEK953075 - 425 ug/jXBOHJNQYCdnl6458 - 159 ug/dLLABCORPIron Rtvwtkmozv0140 - 55 %LABCORPSpecimen (Source)Anatomical Location / Laterality Collection Method / VolumeCollection TimeReceived Time09/24/2025 7:26 AM EST 09/24/2025 Narrative [facility] - 09/27/2025 11:06 AM EST Performed at: 02 - [address] ??[id number] Diagnostic Technologist: Roger Bullock PhD, Phone: ??[phone] Authorizing ProviderResult TypeResult Status[facility] NPLAB BLOOD ORDERABLES Final ResultPerforming OrganizationAddressty/State/ZIP CodePhone Number [facility] * Insulin, fasting (09/24/2025 7:26 AM EST)ComponentValueRef RangeTest Method Analysis TimePerformed AtPathologist XvozjzulyXfiutpv27.72.6 - 24.9 uIU/mL [facility]PSpecimen (Source)Anatomical Location / LateralityCollection Method / VolumeCollection TimeReceived Time09/24/2025 7:26 AM EST09/24/2025 Narrative [facility] - 09/27/2025 11:06 AM EST Performed at: 02 - [address] ??[id number] Diagnostic Technologist: Roger Bullock PhD, Phone: ??[phone] Authorizing ProviderResult TypeResult StatusAmy [facility] NPLAB BLOOD ORDERABLES Final ResultPerforming OrganizationAddEncompass Health Rehabilitation Hospital of Altoonaty/State/ZIP CodePhone Number [facility] * (ABNORMAL) Vitamin A (09/24/2025 7:26 AM EST)ComponentValueRef RangeTest MethodAnalysis TimePerformed AtPathologist SignatureVitamin A71.7(H)20.1 - 62.0 ug/dLLABCORPComment: Reference intervals for vitamin A [facility]. Individuals with vitamin A less than 20 ug/dL are considered vitamin A deficient and those with serum concentrations less than 10 ug/dL are considered severely deficient. This test was developed and its performance characteristics determined by [facility]. It has not been cleared or approved by the Food and Drug Administration. Specimen (Source)Anatomical Location / LateralityCollection Method / Volume Collection TimeReceived Time09/24/2025 7:26 AM EST09/24/2025 [facility] - 09/27/2025 11:06 AM EST Performed at: [address] ??[id number] Diagnostic Technologist: Martin Mason MD, Phone: ??[phone] Authorizing ProviderResult TypeResult StatusA[facility] NPLAB BLOOD ORDERABLES Final ResultPerforming OrganizationAddExcela [facility]/State/ZIP CodePhone Number [facility] * Vitamin D 25 hydroxy Total (09/24/2025 7:26 AM EST)ComponentValueRef RangeTest MethodAnalysis TimePerformed AtPathologist SignatureVitamin D, 25-Swuntwv93.9 30.0 - 100.0 ng/mLLABCORPComment: Vitamin D deficiency has been defined by the [place] of Medicine and an Endocrine Society practice guideline as a level of serum 25-OH vitamin D less than 20 ng/mL (1,2). The Endocrine Society went on to further define vitamin D insufficiency as a level between 21 and 29 ng/mL (2). 1. IOM ([place] of [employer]). 2010. Dietary reference ?? intakes for calcium and D. [place]: The ?? National Academies Press. 2. Miquel MF, Travis LI, Hailey LOPEZ, et al. ?? Evaluation, treatment, and prevention of vitamin D ?? deficiency: an Endocrine Society clinical practice ?? guideline. JCEM. 2010; 96(7):1911-30. Specimen (Source)Anatomical Location / LateralityCollection Method / Volume Collection TimeReceived Time09/24/2025 7:26 AM EST09/24/2025 Narrative [facility] - 09/27/2025 11:06 AM EST Performed at: 02 - [facility] [address] ??[id number] Diagnostic Technologist: Roger Bullock PhD, Phone: ??[phone] Authorizing ProviderResult TypeResult StatusAmy Warchol NPLAB BLOOD ORDERABLES Final ResultPerforming OrganizationAddressCity/State/ZIP CodePhone Number [facility] * CBC and differential (09/24/2025 7:26 AM EST)ComponentValueRef RangeTest MethodAnalysis TimePerformed AtPathologist SignatureWBC5.23.4 - 10.8 x10E3/uL LABCORPRBC4.023.77 - 5.28 x10E6/dBLOKOMNLBgc42.311.1 - 15.9 g/jMSBIGEKLDni07.3 34.0 - 46.6 %JRHRAKZIOO9170 - 97 bPITQWNPMZLR08.626.6 - 33.0 zkRBZOUSDXDQD54.0 31.5 - 35.7 g/aYJKYSAILFLX90.711.7 - 15.4 %KSLVSIIReowugear627356 - 450 x10E3/dHEJGXDGBXmdpmvjicjs24Fzw Estab. %ZIUIVEQZdccaf14Rtz Estab. %[facility] Jecymhweb1Bgi Estab. %TYYDOSBOyw5Rpo Estab. %PXRMPYDSinuc4Kvw Estab. %[facility] Neutrophils Abs3.81.4 - 7.0 x10E3/uLLABCORPLymphs Abs0.90.7 - 3.1 x10E3/uL LABCORPMonocytesAbs0.40.1 - 0.9 x10E3/uLLABCORPEos Abs0.20.0 - 0.4 x10E3/uL [facility]ABCORPBaso Abs0.10.0 - 0.2 x10E3/uLLABCORPImmature Bdjstkkhsitg3Dfg Estab. % LABCORPImmature Grans Abs0.00.0 - 0.1 x10E3/uLLABCORPSpecimen (Source) Anatomical Location / LateralityCollection Method / VolumeCollection Time Received Time09/24/2025 7:26 AM EST09/24/2025 Narrative [facility] - 09/27/2025 11:06 AM EST Performed at: [address], [address] ??[id number] Diagnostic Technologist: Karina Ledezma MD, Phone: ??[phone] Authorizing ProviderResult TypeResult StatusAmy [facility] NPLAB BLOOD ORDERABLES Final ResultPerforming OrganizationAddressCity/State/ZIP CodePhone Number [facility] * Magnesium (09/24/2025 7:26 AM EST)ComponentValueRef RangeTest MethodAnalysis TimePerformed AtPathologist SignatureMagnesium2.01.6 - 2.3 mg/dLLABC[facility]P Specimen (Source)Anatomical Location / LateralityCollection Method / Volume Collection TimeReceived Time09/24/2025 7:26 AM EST09/24/2025 Narrative [facility] - 09/27/2025 11:06 AM EST Performed at: - [address], [address] ??[id number] Diagnostic Technologist: Karina Ledezma MD, Phone: ??[phone] Authorizing ProviderResult TypeResult StatusAmy [facility] NPLAB BLOOD ORDERABLES Final ResultPerforming OrganizationAddressCity/State/ZIP CodePhone Number [facility] * Ferritin (09/24/2025 7:26 AM EST)ComponentValueRef RangeTest MethodAnalysis TimePerformed AtPathologist UmbvbmjwlDhdqhcyq92628 - 150 ng/mLLABCORPSpecimen (Source)Anatomical Location / LateralityCollection Method / VolumeCollection TimeReceived Time09/24/2025 7:26 AM EST09/24/2025 Narrative [facility] - 09/27/2025 11:06 AM EST Performed at: [address] ??[id number] Diagnostic Technologist: Roger Bullock PhD, Phone: ??[phone] Authorizing ProviderResult TypeResult StatusAmy Warchol NPLAB BLOOD ORDERABLES Final ResultPerforming OrganizationAddressCity/State/ZIP CodePhone Number [facility] * Vitamin B12 (09/24/2025 7:26 AM EST)ComponentValueRef RangeTest MethodAnalysis TimePerformed AtPathologist SignatureVitamin [id number] - 1,245 pg/mLLABCORP Specimen (Source)Anatomical Location / LateralityCollection Method / Volume Collection TimeReceived Time09/24/2025 7:26 AM EST09/24/2025 Narrative [facility] - 09/27/2025 11:06 AM EST Performed at: [address] ??[id number] Diagnostic Technologist: Roger Bullock PhD, Phone: ??[phone] Authorizing ProviderResult TypeResult StatusAmy Warchol NPLAB BLOOD ORDERABLES Final ResultPerforming OrganizationAddressCity/State/ZIP CodePhone Number [facility] * (ABNORMAL) Lipid panel (09/24/2025 7:26 AM EST)ComponentValueRef RangeTest MethodAnalysis TimePerformed AtPathologist SignatureCholesterol, Pbega757(H) 100 - 199 mg/kJAKZBYIFBnfufpxhnysbx5064 - 149 mg/dLLABCORPHDL Mivcyescnnc17>39 mg/dLLABCORPVLDL Cholesterol Jev827 - 40 mg/dLLABCORPLDL Chol Calc (NIH)145(H) 0 - 99 mg/dLLABCORPSpecimen (Source)Anatomical Location / LateralityCollection Method / VolumeCollection TimeReceived Time09/24/2025 7:26 AM EST09/24/2025 Narrative [facility] - 09/27/2025 11:06 AM EST Performed at: [address] ??[id number] Diagnostic Technologist: Roger Bullock PhD, Phone: ??[phone] Authorizing ProviderResult TypeResult StatusAdventist Health Simi ValleyLAB BLOOD ORDERABLES Final ResultPerforming OrganizationAddressCity/State/ZIP CodePhone Number [facility] * (ABNORMAL) Basic metabolic panel (09/24/2025 7:26 AM EST)ComponentValueRef RangeTest MethodAnalysis TimePerformed AtPathologist LcxfxeitfDybexmq8045 - 99 mg/kURTTGLRQMGX979 - 24 mg/dLLABCORPCreat0.650.57 - 1.00 mg/oKLTPMRUVXVWO865 >59 mL/min/1.73LABCORPBUN/Creat Ratio29(H)9 - 54NGFZPYBVoczbs905216 - 144 mmol/[facility]ABCORPPotassium4.43.5 - 5.2 mmol/ONFPJSKMKdenwucn44504 - 106 mmol/L LABCORPCarbon Xhkssqc3651 - 29 mmol/LLABCORPCalcium9.78.7 - 10.2 mg/dLL[facility]P Specimen (Source)Anatomical Location / LateralityCollection Method / Volume Collection TimeReceived Time09/24/2025 7:26 AM EST09/24/2025 Narrative [facility] - 09/27/2025 11:06 AM EST Performed at: - [address], [address] ??[id number] Diagnostic Technologist: Karina Ledezma MD, Phone: ??[phone] Authorizing ProviderResult TypeResult StatusAdventist Health Simi ValleyLAB BLOOD ORDERABLES Final ResultPerforming OrganizationAddressCity/State/ZIP CodePhone Number [facility] * Sedimentation rate, automated (09/24/2025 7:25 AM EST)ComponentValueRef Range Test MethodAnalysis TimePerformed AtPathologist SignatureSed Rate-Nszuowwfkw17 0 - 40 mm/hrLABCORPSpecimen (Source)Anatomical Location / LateralityCollection Method / VolumeCollection TimeReceived TimeBloodVenous blood specimen / Cfgdvqu8209/24/2025 7:25 AM EST09/24/2025 Narrative [facility] - 09/25/2025 7:07 AM EST Performed at: - [place] [address] [address] [facility], [address] ??[id number] Diagnostic Technologist: Karina Ledezma MD, Phone: ??[phone] Authorizing ProviderResult TypeResult StatusRobert J Vaschak DOLAB BLOOD ORDERABLESFinal ResultPerforming OrganizationAddressCity/State/ZIP CodePhone Number [facility] * C-reactive protein (09/24/2025 7:25 AM EST)ComponentValueRef RangeTest Method Analysis TimePerformed AtPathologist SignatureC-Reactive Protein Quant40 - 10 mg/LLABCORPSpecimen (Source)Anatomical Location / LateralityCollection Method / VolumeCollection TimeReceived TimeBloodVenous blood specimen / Unknown 09/24/2025 7:25 AM EST09/24/2025 Narrative [facility] - 09/25/2025 7:07 AM EST Performed at: - [address] ??[id number] Diagnostic Technologist: Roger Bullock PhD, Phone: ??[phone] Authorizing ProviderResult TypeResult StatusRobert J Vaschak [facility] BLOOD ORDERABLESFinal ResultPerforming OrganizationAddressty/State/ZIP CodePhone Number [facility] * Uric acid (09/24/2025 7:25 AM EST)ComponentValueRef RangeTest MethodAnalysis TimePerformed AtPathologist SignatureUric Acid5.93.0 - 7.2 mg/dLL[facility]P Comment:Therapeutic target for gout patients: <6.0Specimen (Source)Anatomical Location / LateralityCollection Method / VolumeCollection TimeReceived Time BloodVenous blood specimen / Rrcfwmp9309/24/2025 7:25 AM EST09/24/2025 Narrative [facility] - 09/25/2025 7:07 AM EST Performed at: - [place] [address] [address] [facility], [address], [place], [place] ??[id number] Diagnostic Technologist: Karina Ledezma MD, Phone: ??[phone] Authorizing ProviderResult TypeResult StatusRobert J Vasmagruder hospitaleva DOL BLOOD ORDERABLESFinal ResultPerforming OrganizationAddressCity/State/ZIP CodePhone Number [facility] * Bilateral screening mammogram with tomosynthesis (04/15/2025 5:22 PM EDT) Anatomical RegionLateralityModalityBreastBilateralMammographySpecimen (Source) Anatomical Location / LateralityCollection Method / VolumeCollection Time Received Time04/16/2025 4:21 PM EDT Impressions 04/16/2025 4:33 PM EDT Impression: No specific evidence of malignancy seen in either breast. BIRADS 2 - Benign Findings DENSITY: The breasts are almost entirely fatty. FOLLOW-UP: Routine Screening Mammogram ELECTRONICALLY SIGNED BY: Eriberto Hernandez M.D. Narrative 04/16/2025 4:33 PM EDT Examination: BI MAMMOGRAM SCREENING TOMOSYNTHESIS BILATERAL Clinical History: ANNUAL SCREEN Technique: Screening digital mammography study of both breasts was performed with 2-D and 3-D tomosynthesis imaging. Study was compared to the prior exam dated 05/22/2023. Findings: There is no evidence of interval dominant spiculated mass, grouped microcalcifications, or skin thickening which would be suggestive of malignancy. ?? A few benign-appearing calcifications are seen bilaterally. Axillary lymph nodes are noted bilaterally including partially visualized lymph nodes and appear grossly unremarkable. Procedure Note Eriberto Hernandez MD - 04/16/2025 Examination: BI MAMMOGRAM SCREENING TOMOSYNTHESIS BILATERAL Clinical History: ANNUAL SCREEN Technique: Screening digital mammography study of both breasts wasperformed with 2-D and 3-D tomosynthesis imaging. Study was compared tothe prior exam dated 05/22/2023. Findings: There is no evidence of interval dominant spiculated mass,grouped microcalcifications, or skin thickening which would be suggestiveof malignancy. A few benign-appearing calcifications are seen bilaterally. Axillary lymphnodes are noted bilaterally including partially visualized lymph nodes andappear grossly unremarkable. IMPRESSION: Impression: No specific evidence of malignancy seen in either breast. BIRADS 2 - Benign Findings DENSITY: The breasts are almost entirely fatty. FOLLOW-UP: Routine Screening Mammogram ELECTRONICALLY SIGNED BY: Eriberto Hernandez M.D. Authorizing ProviderResult TypeResult StatusAmy Warchol NPIMG BI PROCEDURESFinal Result * Colonoscopy (08/23/2020 12:00 PM EDT)Anatomical RegionLateralityModality EndoscopySpecimen (Source)Anatomical Location / LateralityCollection Method / VolumeCollection TimeReceived Time08/23/2020 12:00 PM EDT Narrative 08/23/2020 12:00 PM EDT PERFORMED AT [facility] LOCATION:[id number] diverticulosis Procedure Note CONVERSION, GENERIC - 03/28/2023 PERFORMED AT [facility] LOCATION:[id number] diverticulosis Authorizing ProviderResult TypeResult StatusRobert Chantel Booker DOENDOSCOPY PROCEDURE ORDERABLESFinal Result from Last 3 Months or Most Recently Relevant to Health Maintenance Insurance Care Teams Team MemberRelationshipSpecialtyStart DateEnd Doron Booker DO [address] [place] [address] PCP - GeneralInternal Medicine03/20/23 Doron Booker DO [address] [place] [address] PCP - [place] [employer]06/12/25 Man Brenner DO [address] [place] [address] Referring PhysicianFamily Medicine03/31/25 Erin Oshea NP [address] [place] [address] Nurse PractitionerInternal Medicine05/25/25 Cora Almonte MD [address] [facility] [address] [place] [address] Referring PhysicianGynecology05/25/25 Efrem Ahn MD [address] [place] [phone] Referring PhysicianOrthopaedic Hgqkimt10/18/25
--- NOTE | 2025-10-31 22:43 | PC.NURSE ---
i gave this patient verbal and written discharge orders and this patient voices yes to understanding these. at time of discharge this patient this patient voices no concerns, needs and shows no signs of distress
== END 2025-10-31 22:42 | disposition home or self-care (01) ==
PROVIDERS: Emergency Provider Internal Medicine; PCP Internal Medicine
DX: R04.0 Epistaxis (principal)
CPT/HCPCS: 99281